=== PATIENT | male | born 1960 | race Caucasian/White ===

== ENCOUNTER → 2019-03-11 10:22 | Outpatient (BNVA) | payer SELFPAY | PROVIDERS: Family Provider Nurse Practitioner Family; PCP Nurse Practitioner Family; Visit Provider Nurse Practitioner Family | DX: I10 Essential (primary) hypertension (principal); E78.2 Mixed hyperlipidemia; M17.12 Unilateral primary osteoarthritis, left knee | CPT/HCPCS: 80053; 80061; 84443; 85025 ==

== ENCOUNTER → 2019-04-11 08:55 | Outpatient (BNVA) | payer SELFPAY | PROVIDERS: Family Provider Nurse Practitioner Family; PCP Nurse Practitioner Family; Visit Provider Nurse Practitioner Family | DX: I10 Essential (primary) hypertension (principal); E78.5 Hyperlipidemia, unspecified; M17.12 Unilateral primary osteoarthritis, left knee | CPT/HCPCS: 80053 ==

== ENCOUNTER → 2019-08-13 11:04 | Outpatient (BNVA) | payer SELFPAY | PROVIDERS: Family Provider Nurse Practitioner Family; PCP Nurse Practitioner Family; Visit Provider Nurse Practitioner | DX: M25.562 Pain in left knee (principal); M25.561 Pain in right knee; M22.42 Chondromalacia patellae, left knee; M76.891 Other specified enthesopathies of right lower limb, excluding foot | CPT/HCPCS: 73562 ==

== ENCOUNTER → 2019-10-20 14:34 | Outpatient (BNVA) | payer OTHER, SELFPAY | PROVIDERS: Family Provider Nurse Practitioner Family; PCP Nurse Practitioner Family; Visit Provider Nurse Practitioner Family | DX: Z11.59 Encounter for screening for other viral diseases (principal); J98.8 Other specified respiratory disorders | CPT/HCPCS: 87635 ==

== ENCOUNTER 2019-10-21 18:13 | Inpatient (IN) | payer OTHER, SELFPAY ==
[2019-10-21 18:25] VITALS: BP 193/113; PULSE 108; RESP 20; TEMP 38.8; O2SAT 85; BMI 33.7
--- NOTE | 2019-10-21 18:36 | XRR_ITS ---
PROCEDURE INFORMATION: Exam: XR Chest, 1 View Exam date and time: 10/21/2019 6:53 PM Age: 59 years old Clinical indication: Cough and fever; Patient HX: Covid precautions TECHNIQUE: Imaging protocol: XR of the chest Views: 1 view. COMPARISON: No relevant prior studies available. FINDINGS: Lungs: Band-like opacities present in both lung bases for which atelectasis and/or scarring is favored. However, CT CHEST would be more sensitive in detecting mild or early ground-glass opacities that can be seen with COVID-19 pneumonia. There is bilateral central bronchial wall thickening and haziness compatible with inflammation or edema. Pleural space: No pleural effusion or pneumothorax. Heart/Mediastinum: The heart is not felt to be enlarged. The mediastinal contours are normal. Diaphragm: The left hemidiaphragm is elevated. Bones/joints: No acute osseous abnormality. XR/XR chest 1V portable [id number] IMPRESSION: 1. Favor bibasilar atelectasis and/or scarring. 2. Bilateral central bronchial inflammation/edema. 3. Given the concern for COVID-19 pneumonia, consider CT CHEST.
--- NOTE | 2019-10-21 18:36 | ECG_ITS ---
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 Measurements Intervals [place] Rate: 95 P: 45 MT: 138 QRS: 51 QRSD: 86 T: 29 QT: 338 QTc: 426 Interpretive Statements SINUS RHYTHM POSSIBLE LEFT ATRIAL ENLARGEMENT [-0.1mV P WAVE IN V1/V2] NONSPECIFIC T-WAVE ABNORMALITY No previous ECG available for comparison Electronically Signed On 10-22-2019 9:52:19 CDT by Carlitos Navarrete M.D. [id number]
--- NOTE | 2019-10-21 19:08 | ED_ITS ---
HPI - SOB/Dyspnea General: Chief Complaint: Shortness of Breath/Dyspnea Stated Complaint: covid symptoms Time Seen by Provider: 10/21/19 18:26 Source: patient Mode of arrival: ambulatory Limitations: no limitations History of Present Illness: HPI Narrative: 59-year-old male who states he has felt ill over the last 2 to 3 days. He states he had generalized weakness along with shortness of breath and a fever up to 102. Patient was seen at clinic yesterday and had COVID testing but does not have the results back yet. He states he had worsening shortness of breath. Patient's pulse ox in triage was 85% but currently in the room is 90% on room air. He denies any vomiting. He states he does have slight pain in his chest when he breathes. Associated symptoms: Reports fever(s); Deny abdominal pain, chest pain, nausea or vomiting Review of Systems Const: Reports: fever(s) Eyes: Denies: blurry vision or eye discomfort ENMT: Denies: throat pain or dental pain Card: Denies: chest pain Resp: Reports: dyspnea and non-productive cough GI: Denies: abdominal pain, nausea, vomiting or diarrhea : Denies: dysuria Musc: Denies: neck pain or back pain Skin/Breast: Denies: rash Neuro: Denies: headache(s) Psych: Denies: depression Paulo/Lymph: Denies: easy bruising All/Imm: Denies: urticaria PFSH ED PFSH: Medical History Accelerated hypertension CAD (coronary artery disease) Osteoarthritis of left knee Surgical History Stented coronary artery Family History Other CAD (coronary artery disease) Hypertension Parkinson's disease Social History Smoking and tobacco status: former smoker Second hand smoke exposure: No Smoking risk assessment/counseling performed?: No Alcohol intake: never Desire information about alcohol rehabilitation?: No Counseling given: No Desire information about substance/drug rehabilitation?: No Counseling given: No Adopted: No Caregiver/support person: No Lives independently: Yes Household members: spouse Housing: House Marital status: Number of children: 6 service: No Current occupational status: retired History of recent travel: No Current gender identity: Male Physical Exam Const: COMMON NORMALS: no acute distress and patient oriented x3 GENERAL APPEARANCE: ill appearing HENMT: COMMON NORMALS: normocephalic and atraumatic HEAD & SCALP: normocephalic and atraumatic Eye: COMMON NORMALS: Equal, round and reactive pupils present and EOMs intact bilaterally PUPIL: Yes Equal, round and reactive pupils present Neck/C-Spine: COMMON NORMALS: full ROM and supple Chest: COMMONS NORMALS: normal inspection of the chest and normal palpation of entire chest wall Resp: COMMON NORMALS: normal respiratory effort, No retractions and No use of accessory muscles AUSCULTATION: rales Cardio: COMMON NORMALS: regular rate, regular rhythm and No murmurs present (Cardio) RATE: regular rate RHYTHM: regular rhythm GI: COMMON NORMALS: Normal to inspection, nondistended, normoactive bowel sounds present, Soft to palpation, non-tender and no masses PALPATION: Yes Soft to palpation Extremity: COMMON NORMALS: normal to inspection and full ROM Neuro: COMMON NORMALS: patient oriented x3, moves all extremities and no focal motor deficits Psych: COMMON NORMALS: mental status grossly normal, Normal thought process present and cooperative THOUGHT PROCESS: Normal thought process present Skin: COMMON NORMALS: no rashes or lesions noted and no wounds GENERAL SKIN EXAM: no rashes or lesions noted Course Vital Signs: Vital signs: Vital Signs Temperature 102 F H 10/21/19 18:25 Pulse Rate 98 10/21/19 20:47 Respiratory Rate 18 10/21/19 20:47 Blood Pressure 178/91 10/21/19 20:47 Pulse Oximetry 94 10/21/19 20:47 MDM - SOB/Dyspnea MDM Narrative: Medical decision making narrative: 59-year-old the presents here with fever along with shortness of breath. Patient original oxygen here was 90% on room air and is currently 96% on 2 L. Patient's x-ray shows no signs of pneumonia. Spoke to hospitalist will admit to the VICU. Patient's in no extreme distress. Patient given Decadron here. I see no signs of bacterial pneumonia on his x-ray Lab Data: Labs: Lab Results 10/21/19 10/21/19 10/21/19 Range/Units 19:30 19:30 19:30 WBC 7.6 (4.0-10.0) 10^3/ uL RBC 5.61 H (4.1-5.3) 10^6/u L Hgb 17.4 H (11.7-16.6) g/dL Hct 52.2 H (42.0-52.0) % MCV 93.0 (80-94) fL MCH 31.0 (28.0-34.0) pg MCHC 33.3 (30.0-36.0) g/dL RDW 12.2 (12.1-15.1) % Plt Count 357 (130-400) 10^3/c mm MPV 9.9 (7.4-10.4) fL Neut % (Auto) 73.8 % Lymph % (Auto) 15.9 % Greenlee % (Auto) 9.7 % Eos % (Auto) 0.0 % Baso % (Auto) 0.3 % Neut # (Auto) 5.60 (1.8-7.7) 10^3/u L Lymph # (Auto) 1.2 (0.8-4.8) 10^3/u L Greenlee # (Auto) 0.7 (0.2-0.9) 10^3/u L Eos # (Auto) 0.0 (0.0-0.8) 10^3/u L Baso # (Auto) 0.0 (0.0-0.1) 10^3/u L Nucleated RBC % (a uto) 0 % Nucleated RBCs # 0.0 /100WBC Fibrinogen 597 H (174-498) mg/dL Sodium 141 (136-145) mmol/L Potassium 3.7 (3.5-5.1) mmol/L Chloride 97 L (98-107) mmol/L Carbon Dioxide 30 H (22-29) mmol/L Anion Gap 17.7 (5-19) BUN 18 (8-23) mg/dL Creatinine 1.1 (0.7-1.2) mg/dL GFR Calculation 68.3 L (90-130) mL/min Glucose 130 H (65-115) mg/dL Calculated Osmolal ity 290 (285-295) mOsm/k g Lactic Acid (0.5-2.2) mmol/L Calcium 9.6 (8.5-10.5) mg/dL Total Bilirubin 0.7 (0.15-1.2) mg/dL AST 37 (0-40) U/L ALT 29 (0-41) U/L Alkaline Phosphata se 51 (40-130) IU/L Total Protein 7.7 (6.6-8.7) g/dL Albumin 4.0 (3.5-5.2) g/dL Globulin 3.7 (1.3-4.6) g/dL Influenza Type A A g (Negative) Influenza Type B A g (Negative) SARS-CoV-2 Ag (Rap id) (Negative) 10/21/19 10/21/19 10/21/19 Range/Units 19:30 19:30 19:49 WBC (4.0-10.0) 10^3/ uL RBC (4.1-5.3) 10^6/u L Hgb (11.7-16.6) g/dL Hct (42.0-52.0) % MCV (80-94) fL MCH (28.0-34.0) pg MCHC (30.0-36.0) g/dL RDW (12.1-15.1) % Plt Count (130-400) 10^3/c mm MPV (7.4-10.4) fL Neut % (Auto) % Lymph % (Auto) % Greenlee % (Auto) % Eos % (Auto) % Baso % (Auto) % Neut # (Auto) (1.8-7.7) 10^3/u L Lymph # (Auto) (0.8-4.8) 10^3/u L Greenlee # (Auto) (0.2-0.9) 10^3/u L Eos # (Auto) (0.0-0.8) 10^3/u L Baso # (Auto) (0.0-0.1) 10^3/u L Nucleated RBC % (a uto) % Nucleated RBCs # /100WBC Fibrinogen (174-498) mg/dL Sodium (136-145) mmol/L Potassium (3.5-5.1) mmol/L Chloride (98-107) mmol/L Carbon Dioxide (22-29) mmol/L Anion Gap (5-19) BUN (8-23) mg/dL Creatinine (0.7-1.2) mg/dL GFR Calculation (90-130) mL/min Glucose (65-115) mg/dL Calculated Osmolal ity (285-295) mOsm/k g Lactic Acid 1.5 (0.5-2.2) mmol/L Calcium (8.5-10.5) mg/dL Total Bilirubin (0.15-1.2) mg/dL AST (0-40) U/L ALT (0-41) U/L Alkaline Phosphata se (40-130) IU/L Total Protein (6.6-8.7) g/dL Albumin (3.5-5.2) g/dL Globulin (1.3-4.6) g/dL Influenza Type A A g Negative (Negative) Influenza Type B A g Negative (Negative) SARS-CoV-2 Ag (Rap id) Positive H (Negative) Imaging Data^: CXR: Attestation: I personally reviewed and interpreted this imaging study as follows: My impression: no acute abnormality Discharge Plan Discharge Patient Disposition: Admitted As Inpatient Clinical Impression: COVID-19 Condition: Stable Referrals: Gregoria Schilling FNP-C [Primary Care Provider] - Coding Level of Care Code ED Wash Test Checker for Андрей Fwd Exam Comprehensive
[2019-10-21 19:41] VITALS: BP 171/93; PULSE 91; RESP 20; O2SAT 96
[2019-10-21] MEDS: dexamethasone 10 mg/mL INJ IVP (19:43)
[2019-10-21] MEDS: ibuprofen 600 mg Tablet PO (19:43)
[2019-10-21 19:45] LABS: Basophils % 0.3 %; Hematocrit 52.2 % (42.0-52.0); Hemoglobin 17.4 g/dL (11.7-16.6); Lymphocytes # 1.2 10^3/uL (0.8-4.8); Lymphocytes % 15.9 %; Mean Corpuscular HGB Conc 33.3 g/dL (30.0-36.0); Mean Platelet Volume 9.9 fL (7.4-10.4); Monocytes # 0.7 10^3/uL (0.2-0.9); Monocytes % 9.7 %; Neutrophils % 73.8 %; Nucleated Red Blood Cells % 0 %; Platelet Count 357 10^3/cmm (130-400); Red Blood Count 5.61 10^6/uL (4.1-5.3); Red Cell Distribution Width 12.2 % (12.1-15.1); White Blood Count 7.6 10^3/uL (4.0-10.0)
[2019-10-21 20:00] LABS: Alanine Aminotransferase 29 U/L (0-41); Alkaline Phosphatase 51 IU/L (40-130); Anion Gap 17.7 (5-19); Aspartate Amino Transferase 37 U/L (0-40); Blood Urea Nitrogen 18 mg/dL (8-23); Calcium 9.6 mg/dL (8.5-10.5); Carbon Dioxide 30 mmol/L (22-29); Chloride 97 mmol/L (98-107); Globulin 3.7 g/dL (1.3-4.6); Glomerular Filtration Rate 68.3 mL/min (90-130); Glucose 130 mg/dL (65-115); Osmolality Calculated 290 mOsm/kg (285-295); Potassium 3.7 mmol/L (3.5-5.1); SARS Covid-2 Antigen Positive (Negative); Sodium 141 mmol/L (136-145); Total Bilirubin 0.7 mg/dL (0.15-1.2); Total Protein 7.7 g/dL (6.6-8.7)
[2019-10-21 20:01] LABS: Lactic Sepsis W/Reflex 1.5 mmol/L (0.5-2.2)
[2019-10-21 20:06] LABS: Fibrinogen 597 mg/dL (174-498)
[2019-10-21 20:15] LABS: Influenza A by IFA Negative (Negative); Influenza B by IFA Negative (Negative)
[2019-10-21 20:47] VITALS: BP 178/91; PULSE 98; RESP 18; O2SAT 94
[2019-10-21 20:51] LABS: Troponin(5th) Baseline 20 ng/L (0-15)
[2019-10-21 22:53] LABS: C Reactive Protein 45.4 mg/L (0.0-4.9); Ferritin 948 ng/mL (30-400)
[2019-10-21 22:58] VITALS: BP 165/91; PULSE 87; RESP 16; O2SAT 96
[2019-10-21 23:35] VITALS: TEMP 36.6
[2019-10-22] VITALS (48 sets, daily range): BP systolic 102–178; BP diastolic 66–117; PULSE 55–107; RESP 18–37; TEMP 36.1–37.1; O2SAT 72–95
--- NOTE | 2019-10-22 01:05 | ECG_ITS ---
[facility] ED Test Date: 2019-10-22 Pat Name: Valentin Lawton Department: Room: ICU19 Gender: Male Assistant Clinical Director: : 1960 Requested By: Evelyn Lantigua Order Number: [id number] Juan Francisco MD: Lamar Cates M.D. Measurements Intervals [place] Rate: 58 P: 23 NH: 159 QRS: 7 QRSD: 104 T: 5 QT: 465 QTc: 459 Interpretive Statements SINUS BRADYCARDIA WITH OCCASIONAL VENTRICULAR PREMATURE COMPLEXES WITH OCCASIONAL SUPRAVENTRICULAR PREMATURE COMPLEXES LEFT VENTRICULAR HYPERTROPHY AND ST-T CHANGE Compared to ECG 10/21/2019 19:32:52 Ventricular premature complex(es) now present Left ventricular hypertrophy now present ST (T wave) deviation now present Sinus rhythm no longer present T-wave abnormality no longer present Electronically Signed On 10-24-2019 20:58:30 CDT by Lamar Cates M.D. [email or web address] [id number]
[2019-10-22 01:21] LABS: Troponin 5 2HR 16.95 ng/L (0-15)
[2019-10-22] MEDS: enoxaparin 40 mg/0.4 mL Syringe SUBCUT (01:38)
[2019-10-22 02:56] LABS: Hematocrit 51.2 % (42.0-52.0); Hemoglobin 16.8 g/dL (11.7-16.6); Lymphocytes # 0.8 10^3/uL (0.8-4.8); Lymphocytes % 13.7 %; Mean Corpuscular HGB Conc 32.8 g/dL (30.0-36.0); Mean Corpuscular Hemoglobin 30.7 pg (28.0-34.0); Mean Corpuscular Volume 93.4 fL (80-94); Mean Platelet Volume 9.7 fL (7.4-10.4); Monocytes # 0.3 10^3/uL (0.2-0.9); Monocytes % 5.3 %; Neutrophils % 80.6 %; Nucleated Red Blood Cells % 0 %; Platelet Count 365 10^3/cmm (130-400); Red Blood Count 5.48 10^6/uL (4.1-5.3); Red Cell Distribution Width 12.2 % (12.1-15.1); White Blood Count 5.7 10^3/uL (4.0-10.0)
[2019-10-22 03:12] LABS: Alanine Aminotransferase 29 U/L (0-41); Albumin Level 3.7 g/dL (3.5-5.2); Alkaline Phosphatase 47 IU/L (40-130); Anion Gap 13.8 (5-19); Aspartate Amino Transferase 33 U/L (0-40); Blood Urea Nitrogen 25 mg/dL (8-23); Calcium 9.6 mg/dL (8.5-10.5); Carbon Dioxide 30 mmol/L (22-29); Chloride 99 mmol/L (98-107); Globulin 3.5 g/dL (1.3-4.6); Glomerular Filtration Rate 51.7 mL/min (90-130); Glucose 161 mg/dL (65-115); Osmolality Calculated 288 mOsm/kg (285-295); Potassium 3.8 mmol/L (3.5-5.1); Sodium 139 mmol/L (136-145); Total Bilirubin 0.6 mg/dL (0.15-1.2); Total Protein 7.2 g/dL (6.6-8.7)
[2019-10-22 03:34] LABS: C Reactive Protein 48.9 mg/L (0.0-4.9)
--- NOTE | 2019-10-22 07:22 | ECG_ITS ---
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 Measurements Intervals [place] Rate: 82 P: 18 DC: 118 QRS: 12 QRSD: 94 T: 2 QT: 395 QTc: 464 Interpretive Statements SINUS RHYTHM WITH SHORT DC INTERVAL POSSIBLE LEFT VENTRICULAR HYPERTROPHY POSSIBLE ANTERIOR MYOCARDIAL INFARCTION, OF INDETERMINATE AGE Compared to ECG 10/22/2019 02:01:39 Short DC interval now present Myocardial infarct finding now present Sinus bradycardia no longer present Ventricular premature complex(es) no longer present ST (T wave) deviation no longer present Electronically Signed On 10-24-2019 20:47:57 CDT by Lamar Cates M.D. [id number]
--- NOTE | 2019-10-22 08:59 | PC.NURSE ---
patient attempted to void at 0730 and went into afib rvr rate of 202 seen. he converted once settled back in his cot. ekg done latent per order. bladder scanned and over 400 noted. order for kruse given and performed. tolerated well.
--- NOTE | 2019-10-22 09:08 | P.HP_ITS ---
Providers/Chief Complaint Admitting Physician: Munir Robins MD Primary Care Provider: YAZMIN Brooks-Mike Chief Complaint: covid symptoms History of Present Illness Valentin Lawton is a 59 year old male presents to [facility] with significant shortness of breath over the last 3 days. He denies chest pain per se but reports that could not take deep breath in. He has been having white phlegm productive cough. Reports that his also been somewhat similarly sick but less severe. He tested positive for COVID-19 and admitted for further monitoring and treatment. He denied diarrhea but does report some nonspecific generalized abdominal discomfort. While in VICU patient was trying to urinate when developed tachycardia with heart rate in 200s. This was short-lived and we were unable to capture on EKG prior to patient converting back to normal sinus rhythm. Reports that he felt heart palpitations during this episode. Reports that previously he had one episode of atrial fibrillation on time ago but was not treated with anticoagulation. Coronary he received 2 stents around year 2013 and since then has been chest pain-free even with activity. He retired 2 years ago but reports that he is still keeps himself active. He does not use oxygen at home. He smoked minimally up until 40 years ago. He reports that his both lower extremities were slightly swollen but not during my evaluation. Patient's bladder was scanned showed more than 400 mL of urine and Perez catheter was placed. Review of Systems Narrative: Except as mentioned. Const: Reports: fever(s); Denies: chills Eyes: Denies: change in vision ENMT: Denies: throat pain or change in hearing Card: Denies: chest pain or lightheadedness Resp: Reports: dyspnea and productive cough GI: Reports: abdominal pain; Denies: nausea, vomiting, dysphagia, diarrhea, constipation, hematochezia or melena Musc: Denies: joint pain or joint swelling Skin/Breast: Denies: rash or erythema Neuro: Denies: headache(s) or weakness in extremities Psych: Denies: depression or suicidal ideation Endo: Denies: excessive sweating Paulo/Lymph: Denies: easy bleeding or tender lymph nodes All/Imm: Denies: throat swelling Medications/Allergies Home Medications Medication Instructions Recorded Confirmed Last Taken Type Qunol Ultra CoQ10 See Rx Instructions .ROUTE .COMPLEX 03/10/19 10/21/19 10/20/19 History aspirin 81 mg tablet,delayed 81 mg PO DAILY tab 03/10/19 10/21/19 10/20/19 Hi story release cyanocobalamin (vitamin B-12) 250 250 mcg PO DAILY 03/10/19 10/21/19 10/20/19 History mcg tablet magnesium oxide See Rx Instructions .ROUTE .COMPLEX 04/11/19 10/21/19 10/20/19 History isosorbide mononitrate 30 mg 30 mg PO BID #60 tab 08/11/19 10/21/19 10/20/19 Rx tablet,extended release 24 hr clonidine HCl 0.1 mg tablet 0.1 mg PO BID PRN 30 Days #30 tab 09/23/19 10/21/19 Unknown Rx ezetimibe 10 mg tablet 10 mg PO DAILY 30 Days #30 tab 09/23/19 10/21/19 10/20/19 Rx furosemide 20 mg tablet 20 mg PO QAM 30 Days #30 tab 09/23/19 10/21/19 10/20/19 Rx lisinopril 40 mg tablet 40 mg PO DAILY 30 Days #30 tab 09/23/19 10/21/19 10/20/19 Rx nitroglycerin 0.4 mg sublingual 0.4 mg SUBLINGUAL ONCE PRN #1 pkg 09/23/19 10/21/19 Unknown Rx tablet doxycycline hyclate 100 mg tablet 100 mg PO BID 10 Days #20 tab 10/20/19 10/21/19 10/20/19 Rx Allergies Allergy/AdvReac Type Severity Reaction Status Date / Time amlodipine Allergy Intermediate rash Verified 10/21/19 19:57 acetaminophen [From Vicodin] Allergy Unknown behavior Verified 10/21/19 19:57 changes hydrocodone [From Vicodin] Allergy Unknown behavior Verified 10/21/19 19:57 changes Beef Containing Products Allergy Unknown Verified 10/21/19 19:57 Pork/Porcine Containing Allergy Unknown Verified 10/21/19 19:57 Products PFSH Acute PFSH: Medical History Accelerated hypertension CAD (coronary artery disease) Osteoarthritis of left knee Surgical History Stented coronary artery Family History (Updated 10/22/19 @ 09:15 by Greg Winters MD) Mother Cancer Liver Other CAD (coronary artery disease) Hypertension Parkinson's disease Social History Smoking and tobacco status: former smoker Second hand smoke exposure: No Smoking risk assessment/counseling performed?: No Alcohol intake: never Desire information about alcohol rehabilitation?: No Counseling given: No Desire information about substance/drug rehabilitation?: No Counseling given: No Adopted: No Caregiver/support person: No Lives independently: Yes Household members: spouse Housing: House Marital status: Number of children: 6 service: No Current occupational status: retired History of recent travel: No Current gender identity: Male Vitals/I&O/Wt Last Vital Signs Temp 97 F L 10/22/19 07:30 Pulse 84 10/22/19 09:00 Resp 26 H 10/22/19 09:00 BP 172/114 10/22/19 09:00 Pulse Ox 92 10/22/19 09:00 10/21/19 10/22/19 10/22/19 22:59 06:59 14:59 Intake Total 300 / 300 Balance 300 / 300 Weight last 48 hrs Weight 112.945 kg Physical Exam Const: COMMON NORMALS: no acute distress, patient oriented x3 and alert HENMT: COMMON NORMALS: normocephalic and atraumatic HEAD & SCALP: normocephalic and atraumatic Eye: COMMON NORMALS: EOMs intact bilaterally, conjunctivae normal and no scleral icterus CONJUNCTIVA: Yes conjunctivae normal Neck/C-Spine: COMMON NORMALS: no lymphadenopathy and no meningeal signs Lymph: LYMPHATIC: no lymphadenopathy noted Chest: COMMONS NORMALS: normal palpation of entire chest wall Resp: COMMON NORMALS: No use of accessory muscles OTHER: Bibasilar Rales up to mid zones Cardio: COMMON NORMALS: regular rate, regular rhythm and No murmurs present (Cardio) RATE: regular rate RHYTHM: regular rhythm OTHER: No lower extremity edema GI: COMMON NORMALS: Soft to palpation and non-tender PALPATION: Yes Soft to palpation RECTAL EXAM: Yes deferred : COMMON NORMALS: Yes no CVA tenderness BLADDER/KIDNEY EXAM: Yes no CVA tenderness Back/Pelvis: COMMON NORMALS: no CVA tenderness and thoracic and lumbar spine normal to inspection Extremity: COMMON NORMALS: normal to inspection and capillary refill normal Neuro: COMMON NORMALS: patient oriented x3 and no focal motor deficits SENSORIUM/ORIENTATION: Yes alert MENINGEAL SIGNS: Yes no meningeal signs Psych: COMMON NORMALS: mental status grossly normal, Normal thought process present and cooperative THOUGHT PROCESS: Normal thought process present Skin: COMMON NORMALS: no rashes or lesions noted GENERAL SKIN EXAM: no rashes or lesions noted Urinary Catheter Management^: Perez: Cath Placed During This Visit: yes Urinary Catheter Date of Insertion: 10/22/19 Urinary Catheter Time of Insertion: 08: Data : 10/22/19 02:15 10/22/19 02:15 Micro: Microbiology 10/21/19 19:35 Blood Culture - Preliminary Blood SPECIMEN COLLECTED 10/21/19 19:30 Blood Culture - Preliminary Blood SPECIMEN COLLECTED A&P Assessment and plan (1) Acute respiratory failure with hypoxia: Status: Acute (2) COVID-19: Status: Acute (3) Accelerated hypertension: Status: Chronic (4) Urinary retention: Status: Acute (5) Tachyarrhythmia: Status: Acute (6) Community acquired pneumonia: Status: Acute (7) Dehydration: Status: Acute Additional A&P Information PLAN: IV hydration with LR with close monitoring Start patient on Levaquin and continue remdesivir and Decadron. Obtain sputum for Gram stain and culture. Continue with oxygen therapy. Discussed with patient risks and benefits of anticoagulation and will start patient on Eliquis empirically. Start patient on alfuzosin and hopefully we can try removing Perez catheter in a day or 2 Protonix for GI protection. Continue telemetry monitoring. Attestations Medical Necessity Statement*: Patient was hypoxic respiratory failure due to pneumonia requires close ICU monitoring and treatment. I expect patient will require more than 2 midnights. Critical Care Time: Critical Care Time (min): 45 Coding Level of Care Code Acute Steel Chipper for Андрей Franco Diagnoses Acute respiratory failure with hypoxia J96.01 COVID-19 U07.1 Accelerated hypertension I10 Urinary retention R33.9 Tachyarrhythmia R00.0 Community acquired pneumonia J18.9 Dehydration E86.0
[2019-10-22 09:20] LABS: Urine Appearance SL Hazy (CLEAR); Urine Color Orange (Yellow)
[2019-10-22 09:21] LABS: Add Urine Culture? No; Add Urine Microscopic? YES; Bacteria Urine 2+; Bilirubin Urine 1+ (NEGATIVE); Blood Urine Neg (Negative); Glucose Urine UA Norm (Normal); Hyaline Casts Urine 0-4; Ketones Urine Negative (Negative); Leukocyte Esterase Urine Negative (Negative); Mucus Urine 1+; Nitrate Urine Negative (Negative); Protein Urine 3+ (Negative); Squamous Epithelial Cell Urine 0-4 (0-5); Urobilinogen Urine 1 mg/dL (Negative); WBC Urine 0-4 /hpf (0-5)
[2019-10-22] MEDS: lisinopril 20 mg Tablet 40 MG PO (09:46)
[2019-10-22] MEDS: isosorbide mononitrate ER 30 mg Tablet PO ×2 (09:46→16:44)
[2019-10-22] MEDS: aspirin 81 mg EC Tablet PO (09:46)
[2019-10-22 11:18] LABS: Glucose Point of Care 157 mg/dL (70-110)
[2019-10-22] MEDS: dexamethasone 10 mg/mL INJ 6 MG IV (11:43)
[2019-10-22] MEDS: levofloxacin-dextrose 5 % 750 MG/150 ML PREMIX 100 MG IV (11:45)
[2019-10-22] MEDS: lactated ringers 1,000 ML 50 ML IV (11:45)
[2019-10-22] MEDS: alfuzosin 10 mg ER Tablet PO (11:47)
[2019-10-22] MEDS: pantoprazole DR 40 mg Tablet PO (11:48)
--- NOTE | 2019-10-22 13:50 | CTR_ITS ---
PROCEDURE INFORMATION: Exam: CT Head Without Contrast Exam date and time: 10/22/2019 3:14 PM Age: 59 years old Clinical indication: Condition or disease; Convulsions or seizures; Additional info: Seizure, anticoagulated TECHNIQUE: Imaging protocol: Computed tomography of the head without contrast. Radiation optimization: All CT scans at this facility use at least one of these dose optimization techniques: automated exposure control; mA and/or kV adjustment per patient size (includes targeted exams where dose is matched to clinical indication); or iterative reconstruction. COMPARISON: No relevant prior studies available. RADIATION DOSE METRICS: Total DLP (mGy-cm): 867.45 FINDINGS: Brain: Normal. No hemorrhage. Unremarkable white matter. No mass effect. Ventricles: Normal. No ventriculomegaly. Bones/joints: Unremarkable. No acute fracture. Sinuses: Visualized sinuses are unremarkable. No fluid levels. Mastoid air cells: Visualized mastoid air cells are well aerated. Soft tissues: Unremarkable. CT/CT head wo con* [id number] IMPRESSION: No acute intracranial abnormality. Radiation Dose CTDIVOL = (mGy): DLP = 867.45 (mGy-cm)
[2019-10-22] MEDS: LORazepam 2 mg/mL INJ 1 mL IVP (15:02)
[2019-10-22 15:47] LABS: Glucose Point of Care 141 mg/dL (70-110)
--- NOTE | 2019-10-22 18:13 | PC.NURSE ---
0730 patient had afib rvr and converted on his own. the symptoms were set off while attempting to void at the side of the bed. post conversion ekg done. kruse placed, ua sent. 1100 patient assisted to chair per tech. 1245 patient slumped a bit in his chair, seemed weaker but orientated. we attempted to bring a bed in to help his aching bottom and back and noted tonic clonic seizure. his arms straighten out at his sides, his eyes rolled up , he was sweating, and lost track of where he was for about a min after the 10 sec long episode, this happened 3x in my presence. ativan and keppra ordered and given within 30 min. at the time of his seizure he was in the chair, we pulled it out in the faria to get him into the bed. he was able to stand with assist a few minutes after the last episode and was instantly more comfortable
[2019-10-22 18:30] LABS: NT Pro B Type Natriuretic Pept 268 pg/mL (0-125)
--- NOTE | 2019-10-22 18:34 | PC.NURSE ---
patients updated at 0900 about the afib , then she called around 4 and was told about the ct scan due to the siezures, she is very upset that no doctor has called her. she was advised to send the patients phone to him so they could talk. this was done. i spoke to her again about his condition and then her daughter called wanting to talk to the doctor or mail carriers supervisor about her fathers condition. dr mcfadden was told .
--- NOTE | 2019-10-22 18:41 | CTR_ITS ---
PROCEDURE INFORMATION: Exam: CT Chest Without Contrast Exam date and time: 10/22/2019 7:55 PM Age: 59 years old Clinical indication: Shortness of breath; Prior surgery; Surgery type: Stents; Additional info: Covid/chf/decreased resp TECHNIQUE: Imaging protocol: Computed tomography of the chest without contrast. Radiation optimization: All CT scans at this facility use at least one of these dose optimization techniques: automated exposure control; mA and/or kV adjustment per patient size (includes targeted exams where dose is matched to clinical indication); or iterative reconstruction. COMPARISON: CR XR chest 1V portable [id number] 10/21/2019 6:41 PM RADIATION DOSE METRICS: Total DLP (mGy-cm): 1094.15 FINDINGS: Lungs: There is moderate severity subpleural and lower lung predominant patchy ground-glass and reticular opacity. Pleural space: There is no pleural effusion or pneumothorax. Heart: Heart size is normal. There is no pericardial effusion. Aorta: There is mild aortic atherosclerotic disease. There is no aortic aneurysm. Lymph nodes: There is no mediastinal or hilar lymphadenopathy. Gallbladder and bile ducts: There is high attenuation material within the gallbladder lumen consistent with sludge. Kidneys and ureters: There is a nonobstructive stone in the left kidney. Bones/joints: Bones are unremarkable. Soft tissues: The extrathoracic soft tissues are unremarkable. CT/CT chest wo con [id number] IMPRESSION: Moderate severity bilateral lung disease. Commonly reported imaging features of COVID-19 pneumonia are present. Other processes such as influenza pneumonia and organizing pneumonia (as can be seen with drug toxicity and connective tissue disease), can produce a similar imaging pattern. Radiation Dose CTDIVOL = (mGy): DLP = 1094.15 (mGy-cm)
[2019-10-22] MEDS: FUROsemide 10 mg/mL SDV 4mL 40 MG IVP (19:47)
[2019-10-22] MEDS: fondaparinux 2.5 mg/0.5 mL Syringe SUBCUT (19:47)
[2019-10-22 22:02] LABS: Glucose Point of Care 143 mg/dL (70-110)
[2019-10-23] VITALS (50 sets, daily range): BP systolic 99–160; BP diastolic 54–96; PULSE 65–101; RESP 1–33; TEMP 36.3–37.2; O2SAT 88–96
--- NOTE | 2019-10-23 06:00 | XR_ITS ---
WS: [id number] Portable AP upright chest, 10/23/2019 Clinical Data: COVID19, hypoxia Comparison: Portable chest, 10/21/2019. Findings: No nodules, masses or effusions are seen. The heart is normal. The pulmonary vascularity is not increased. No pneumonia or pneumothorax is seen. The left diaphragm is elevated. There is mild r ight midlung atelectasis. There is basilar atelectasis over the surface of the left diaphragm. Monito r leads are on the chest wall. XR/XR chest 1V portable [id number] Impression: 1. Poor inspiratory effort. 2. Bilateral atelectatic changes in the right midlung and left lung base.
[2019-10-23 06:10] LABS: Basophils % 0.1 %; Hematocrit 46.1 % (42.0-52.0); Hemoglobin 15.3 g/dL (11.7-16.6); Lymphocytes % 9.8 %; Mean Corpuscular HGB Conc 33.2 g/dL (30.0-36.0); Mean Corpuscular Hemoglobin 31.6 pg (28.0-34.0); Mean Corpuscular Volume 95.2 fL (80-94); Mean Platelet Volume 9.8 fL (7.4-10.4); Monocytes # 0.8 10^3/uL (0.2-0.9); Monocytes % 8.5 %; Neutrophils # 7.96 10^3/uL (1.8-7.7); Neutrophils % 80.9 %; Nucleated Red Blood Cells % 0 %; Platelet Count 417 10^3/cmm (130-400); Red Blood Count 4.84 10^6/uL (4.1-5.3); Red Cell Distribution Width 12.4 % (12.1-15.1); White Blood Count 9.9 10^3/uL (4.0-10.0)
[2019-10-23 06:22] LABS: Fibrinogen 542 mg/dL (174-498)
[2019-10-23 06:25] LABS: D Dimer 0.57 ug/mIFEU (0-0.59)
[2019-10-23 06:32] LABS: Alanine Aminotransferase 24 U/L (0-41); Albumin Level 3.2 g/dL (3.5-5.2); Alkaline Phosphatase 40 IU/L (40-130); Anion Gap 16.5 (5-19); Aspartate Amino Transferase 20 U/L (0-40); Blood Urea Nitrogen 38 mg/dL (8-23); Calcium 8.9 mg/dL (8.5-10.5); Carbon Dioxide 28 mmol/L (22-29); Chloride 102 mmol/L (98-107); Globulin 3.5 g/dL (1.3-4.6); Glomerular Filtration Rate 68.3 mL/min (90-130); Glucose 126 mg/dL (65-115); Osmolality Calculated 295 mOsm/kg (285-295); Potassium 3.5 mmol/L (3.5-5.1); Sodium 143 mmol/L (136-145); Total Bilirubin 0.5 mg/dL (0.15-1.2); Total Protein 6.7 g/dL (6.6-8.7)
[2019-10-23 06:38] LABS: Ferritin 852 ng/mL (30-400); NT Pro B Type Natriuretic Pept 148 pg/mL (0-125)
[2019-10-23 07:15] LABS: Prolactin 11.51 ng/mL (4.0-15.2)
[2019-10-23 08:01] LABS: Glucose Point of Care 118 mg/dL (70-110)
[2019-10-23] MEDS: dexamethasone 10 mg/mL INJ 6 MG IV (10:10)
[2019-10-23] MEDS: aspirin 81 mg EC Tablet PO (10:11)
[2019-10-23] MEDS: lisinopril 20 mg Tablet 40 MG PO (10:11)
[2019-10-23] MEDS: isosorbide mononitrate ER 30 mg Tablet PO ×2 (10:12→16:49)
[2019-10-23] MEDS: pantoprazole DR 40 mg Tablet PO (10:13)
[2019-10-23] MEDS: alfuzosin 10 mg ER Tablet PO (10:13)
[2019-10-23] MEDS: levofloxacin-dextrose 5 % 750 MG/150 ML PREMIX 100 MG IV (11:00)
--- NOTE | 2019-10-23 11:42 | PM.PN ---
Subjective Subjective: Interval history: Patient reports feeling better this morning although does require 13 L of high nasal cannula flow to saturate in low 90s. He denies chest pain or abdominal pain. His vitals remained stable and patient remains afebrile. Head CT showed no evidence of intracranial bleed. He had no more episodes of seizure-like activity. Vitals/I&O/Wt Last Vital Signs Temp 97.4 F L 10/23/19 10:00 Pulse 75 10/23/19 10:30 Resp 21 H 10/23/19 08:30 BP 141/90 10/23/19 10:30 Pulse Ox 93 10/23/19 10:30 10/22/19 10/23/19 10/23/19 22:59 06:59 14:59 Intake Total 600 / 1400 100 / 1500 355 / 355 Output Total 150 / 650 800 / 1450 Balance 450 / 750 -700 / 50 355 / 355 Weight last 48 hrs Weight 112.945 kg Physical Exam Const: COMMON NORMALS: no acute distress and patient oriented x3 Resp: COMMON NORMALS: normal respiratory effort OTHER: Patient continues to have bibasilar Rales but overall appears to be improving. Cardio: COMMON NORMALS: regular rate, regular rhythm and S2 normal heart sound present RATE: regular rate RHYTHM: regular rhythm HEART SOUNDS: S2 normal heart sound present OTHER: No lower extremity edema GI: COMMON NORMALS: Normal to inspection, nondistended, normoactive bowel sounds present, Soft to palpation and non-tender PALPATION: Yes Soft to palpation Neuro: COMMON NORMALS: patient oriented x3 and no focal motor deficits Urinary Catheter Management^: Perez: Cath Placed During This Visit: yes Reason for Continuing Indwelling Catheter: Acute Urinary Retention or Obstruction Urinary Catheter Date of Insertion: 10/22/19 Urinary Catheter Time of Insertion: 08: Data : 10/23/19 04:40 10/23/19 04:40 Micro: Microbiology 10/21/19 19:30 Blood Culture - Preliminary Blood Gram positive cocci 10/21/19 19:35 Blood Culture - Preliminary Blood NEGATIVE TO DATE A&P Assessment and plan (1) Acute respiratory failure with hypoxia: Status: Acute (2) COVID-19: Status: Acute (3) Accelerated hypertension: Status: Chronic (4) Urinary retention: Status: Acute (5) Tachyarrhythmia: Status: Acute (6) Community acquired pneumonia: Status: Acute (7) Dehydration: Status: Acute Additional A&P Information PLAN: Continue current monitoring and treatment. Continue holding any IV hydration. Encouraged oral intake. Overall patient appears to be improving and I think his oxygen requirement will start gradually improving. 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
[2019-10-23 16:41] LABS: Glucose Point of Care 129 mg/dL (70-110)
[2019-10-23] MEDS: fondaparinux 2.5 mg/0.5 mL Syringe SUBCUT (20:53)
[2019-10-23 21:59] LABS: Glucose Point of Care 199 mg/dL (70-110)
[2019-10-24] VITALS (51 sets, daily range): BP systolic 97–161; BP diastolic 58–103; PULSE 54–203; RESP 18–31; TEMP 36.6–37.1; O2SAT 87–96
[2019-10-24 05:17] LABS: Hematocrit 45.1 % (42.0-52.0); Hemoglobin 14.8 g/dL (11.7-16.6); Lymphocytes # 0.8 10^3/uL (0.8-4.8); Lymphocytes % 11.8 %; Mean Corpuscular HGB Conc 32.8 g/dL (30.0-36.0); Mean Corpuscular Hemoglobin 31.5 pg (28.0-34.0); Mean Platelet Volume 9.6 fL (7.4-10.4); Monocytes # 0.7 10^3/uL (0.2-0.9); Monocytes % 10.4 %; Neutrophils # 5.49 10^3/uL (1.8-7.7); Neutrophils % 77.1 %; Nucleated Red Blood Cells % 0 %; Platelet Count 413 10^3/cmm (130-400); Red Cell Distribution Width 12.4 % (12.1-15.1); White Blood Count 7.1 10^3/uL (4.0-10.0)
[2019-10-24 05:45] LABS: Alanine Aminotransferase 26 U/L (0-41); Albumin Level 3.3 g/dL (3.5-5.2); Alkaline Phosphatase 39 IU/L (40-130); Anion Gap 12.7 (5-19); Aspartate Amino Transferase 20 U/L (0-40); Blood Urea Nitrogen 33 mg/dL (8-23); Calcium 8.8 mg/dL (8.5-10.5); Carbon Dioxide 31 mmol/L (22-29); Chloride 104 mmol/L (98-107); Glomerular Filtration Rate 76.2 mL/min (90-130); Glucose 117 mg/dL (65-115); Osmolality Calculated 296 mOsm/kg (285-295); Potassium 3.7 mmol/L (3.5-5.1); Sodium 144 mmol/L (136-145); Total Bilirubin 0.6 mg/dL (0.15-1.2); Total Protein 6.3 g/dL (6.6-8.7)
--- NOTE | 2019-10-24 08:18 | PM.PN ---
Subjective Subjective: Interval history: Patient reports feeling better this morning. He required 15 L yesterday and this morning is down to 14 with saturations in the low 90s. Patient reports that he is breathing easier but does have minimal pleuritic chest pain mostly on the right parasternal border. Reports that he can now take more deeper breaths. He has been having dry cough this morning. Reports that his appetite is getting better. He had no bowel movement yet but passing gas and denies any abdominal pain. Platelets slightly improved Vitals/I&O/Wt Last Vital Signs Temp 98.0 F 10/24/19 04:00 Pulse 55 L 10/24/19 06:00 Resp 21 H 10/24/19 06:00 BP 142/86 10/24/19 06:00 Pulse Ox 94 10/24/19 06:00 10/23/19 10/24/19 10/24/19 22:59 06:59 14:59 Intake Total 555 / 1260 Output Total 700 / 700 700 / 1400 Balance -145 / 560 -700 / -140 Physical Exam Const: COMMON NORMALS: no acute distress and patient oriented x3 Resp: COMMON NORMALS: normal respiratory effort OTHER: Bibasilar Rales appear further improving. Cardio: COMMON NORMALS: regular rate, regular rhythm and S2 normal heart sound present RATE: regular rate RHYTHM: regular rhythm HEART SOUNDS: S2 normal heart sound present OTHER: No lower extremity edema GI: COMMON NORMALS: Normal to inspection, nondistended, normoactive bowel sounds present, Soft to palpation and non-tender PALPATION: Yes Soft to palpation Neuro: COMMON NORMALS: patient oriented x3 and no focal motor deficits Urinary Catheter Management^: Perez: Cath Placed During This Visit: yes Reason for Continuing Indwelling Catheter: Acute Urinary Retention or Obstruction Urinary Catheter Date of Insertion: 10/22/19 Urinary Catheter Time of Insertion: 08:25 Data : 10/24/19 04:00 10/24/19 04:00 Micro: Microbiology 10/21/19 19:30 Blood Culture - Preliminary Blood Gram positive cocci A&P Assessment and plan (1) Acute respiratory failure with hypoxia: Status: Acute (2) COVID-19: Status: Acute (3) Accelerated hypertension: Status: Chronic (4) Urinary retention: Status: Acute (5) Tachyarrhythmia: Status: Acute (6) Community acquired pneumonia: Status: Acute (7) Dehydration: Status: Acute Additional A&P Information PLAN: Continue current monitoring and treatment. We will restart patient's home Lasix and antidepressant I think in day or 2 patients oxygen requirement will start improving. 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
[2019-10-24] MEDS: aspirin 81 mg EC Tablet PO (08:47)
[2019-10-24] MEDS: dexamethasone 10 mg/mL INJ 6 MG IV (08:47)
[2019-10-24] MEDS: alfuzosin 10 mg ER Tablet PO (08:47)
[2019-10-24] MEDS: pantoprazole DR 40 mg Tablet PO (08:48)
[2019-10-24] MEDS: isosorbide mononitrate ER 30 mg Tablet PO ×2 (08:48→16:30)
[2019-10-24] MEDS: lisinopril 20 mg Tablet 40 MG PO (08:48)
[2019-10-24] MEDS: sodium chloride 0.9% 500 ML 30 ML IV (08:54)
[2019-10-24] MEDS: potassium chloride ER 10 mEq Tablet 40 MEQ PO (08:55)
[2019-10-24] MEDS: FUROsemide 20 mg Tablet PO (08:55)
[2019-10-24] MEDS: ezetimibe 10 mg Tablet PO (08:55)
[2019-10-24] MEDS: levofloxacin-dextrose 5 % 750 MG/150 ML PREMIX 100 MG IV (08:56)
[2019-10-24] MEDS: acetaminophen 325 mg Tablet 650 MG PO ×2 (08:58→16:31)
--- NOTE | 2019-10-24 09:04 | PC.NURSE ---
PATIENT GIVEN ADVAIR AND COMBIVENT WITH MORNING MEDS, ORAL CARE PERFORMED AFTERWARDS.
[2019-10-24] MEDS: adenosine 3 mg/mL SDV 2mL 6 MG IVP (12:20)
--- NOTE | 2019-10-24 13:17 | PC.NURSE ---
approximately 1130 patient went into PAT and complained of small but continuous chest pain that worsened on deep breath. hr 206 , bp holding. confirmed with ekg and was given order to bolus adenosine quickly. med taken from crash tray that was available. pathent converted to a sinus lew and then quickly into afib rvr. cardizem bolus and drip were ordered and given around 30 min later no effect as yet has shown. patients sats have dipped to 86 during coughing jag but at rest are 92 to 94. rt and md aware. second bolus of cardizem for a total of 25 given and it has helped the rate go from 170 to 140 on average. patients was updated 2x during the issue.
--- NOTE | 2019-10-24 14:51 | CT_ITS ---
WS: [id number] CTA scan of the chest with IV contrast. Additional two-dimensional coronal and sagittal reconstructio n and MIP images was performed. 10/24/2019 Clinical Data: A. fib, hypoxia Comparison: CT chest, 10/22/2019. DLP: 589.[address] scans at [facility] use at least one of these dose optimization techniques: automat ed exposure control; mA and/or kV adjustment per patient size (includes targeted exams where dose is matched to clinical indication); or iterative reconstruction. Findings: The central pulmonary arteries and peripheral pulmonary arteries fill normally with no evidence of in termittent luminal filling defects. No pulmonary embolic disease is noted. No nodules, masses or effusions are seen. The patchy groundglass bilateral infiltrates remain the day e. The left diaphragm is elevated. There is minimal right lower lobe basilar atelectasis The heart si ze is normal with no pericardial effusion. The pulmonary arterial system and thoracic aorta demonstra te no abnormalities or dilatations. There is no axillary or significant mediastinal adenopathy. The t hyroid gland shows normal enhancement. The trachea bifurcates into the bronchi. The spleen shows fatty infiltration with hepatomegaly. The gallbladder probably has sludge within. Th e pancreas, spleen, adrenal glands and superior poles of the kidneys are not remarkable. Degenerative changes of the thoracic vertebral bodies is moderate. CT/CT angio chest PE protcl [id number] Impression: 1. Negative for pulmonary embolic disease. 2. No change in patchy groundglass bilateral infiltrates.
[2019-10-24] MEDS: iohexol 350 mg/mL 100 mL Btl IV (15:11)
[2019-10-24 16:20] LABS: Glucose Point of Care 179 mg/dL (70-110)
[2019-10-24] MEDS: fondaparinux 2.5 mg/0.5 mL Syringe SUBCUT (19:41)
[2019-10-24 20:48] LABS: Glucose Point of Care 209 mg/dL (70-110)
[2019-10-25] VITALS (62 sets, daily range): BP systolic 103–162; BP diastolic 63–102; PULSE 47–148; RESP 16–33; TEMP 36.6–37; O2SAT 85–93
--- NOTE | 2019-10-25 01:42 | PC.NURSE ---
0130 Started 2nd bag of Diltiazem gtt at 10mg/hr but unable to document in pt's MAR
[2019-10-25 04:53] LABS: Hematocrit 46.9 % (42.0-52.0); Hemoglobin 15.5 g/dL (11.7-16.6); Lymphocytes # 0.8 10^3/uL (0.8-4.8); Lymphocytes % 10.5 %; Mean Corpuscular Hemoglobin 31.3 pg (28.0-34.0); Mean Corpuscular Volume 94.7 fL (80-94); Mean Platelet Volume 9.6 fL (7.4-10.4); Monocytes # 0.7 10^3/uL (0.2-0.9); Monocytes % 9.8 %; Neutrophils # 5.85 10^3/uL (1.8-7.7); Neutrophils % 78.6 %; Nucleated Red Blood Cells % 0 %; Platelet Count 431 10^3/cmm (130-400); Red Blood Count 4.95 10^6/uL (4.1-5.3); White Blood Count 7.4 10^3/uL (4.0-10.0)
[2019-10-25 05:10] LABS: Alanine Aminotransferase 51 U/L (0-41); Albumin Level 3.2 g/dL (3.5-5.2); Alkaline Phosphatase 41 IU/L (40-130); Anion Gap 13.6 (5-19); Aspartate Amino Transferase 36 U/L (0-40); Blood Urea Nitrogen 25 mg/dL (8-23); Calcium 8.6 mg/dL (8.5-10.5); Carbon Dioxide 29 mmol/L (22-29); Chloride 104 mmol/L (98-107); Glomerular Filtration Rate 98.6 mL/min (90-130); Glucose 132 mg/dL (65-115); Osmolality Calculated 295 mOsm/kg (285-295); Potassium 3.6 mmol/L (3.5-5.1); Sodium 143 mmol/L (136-145); Total Bilirubin 0.7 mg/dL (0.15-1.2); Total Protein 6.2 g/dL (6.6-8.7)
[2019-10-25 05:13] LABS: Fibrinogen 470 mg/dL (174-498)
[2019-10-25 05:14] LABS: C Reactive Protein 17.5 mg/L (0.0-4.9); Magnesium 2.2 mg/dL (1.7-2.3)
[2019-10-25 05:16] LABS: D Dimer 0.38 ug/mIFEU (0-0.59)
[2019-10-25] MEDS: FUROsemide 20 mg Tablet PO (05:22)
[2019-10-25 08:15] LABS: Glucose Point of Care 124 mg/dL (70-110)
--- NOTE | 2019-10-25 09:27 | PC.NURSE ---
Advair administered at 0830. Nurse thought RT was to document. Documented as manual entry.
[2019-10-25] MEDS: alfuzosin 10 mg ER Tablet PO (09:34)
[2019-10-25] MEDS: aspirin 81 mg EC Tablet PO (09:35)
[2019-10-25] MEDS: ezetimibe 10 mg Tablet PO (09:42)
[2019-10-25] MEDS: lisinopril 20 mg Tablet 40 MG PO (09:43)
[2019-10-25] MEDS: isosorbide mononitrate ER 30 mg Tablet PO ×2 (09:43→18:21)
[2019-10-25] MEDS: pantoprazole DR 40 mg Tablet PO (09:44)
[2019-10-25] MEDS: potassium chloride ER 10 mEq Tablet 40 MEQ PO (09:45)
[2019-10-25] MEDS: levofloxacin-dextrose 5 % 750 MG/150 ML PREMIX 100 MG IV (09:49)
[2019-10-25] MEDS: dexamethasone 10 mg/mL INJ 6 MG IV (09:55)
--- NOTE | 2019-10-25 11:27 | P.PN_ITS ---
Subjective Subjective: Interval history: Patient reports that he is doing better compared to yesterday. Denies any heart palpitations. Denies chest pain. Breathing is at baseline. Still requires 15 L to saturate in the low 90s. He is still in atrial fibrillation with rapid ventricular response in 110s. C-reactive protein is trending down. CT scan of the chest yesterday showed no evidence of PE. He urinated approximately 300 mL since last shift. Vitals/I&O/Wt Last Vital Signs Temp 98 F 10/25/19 04:00 Pulse 113 H 10/25/19 10:45 Resp 27 H 10/25/19 10:45 BP 115/93 10/25/19 10:30 Pulse Ox 91 10/25/19 10:00 10/24/19 10/25/19 10/25/19 22:59 06:59 14:59 Intake Total 610.000 / 1635.000 205 / 1840.000 120 / 120 Output Total 1200 / 1200 950 / 2150 Balance -590.000 / 435.000 -745 / -310.000 120 / 120 Physical Exam Const: COMMON NORMALS: no acute distress and patient oriented x3 Resp: COMMON NORMALS: normal respiratory effort OTHER: Bibasilar Rales and some mid zones Cardio: RHYTHM: abnormal rhythm irregularly irregular OTHER: No lower e xtremity edema GI: COMMON NORMALS: Normal to inspection, nondistended, normoactive bowel sounds present, Soft to palpation and non-tender PALPATION: Yes Soft to palpation Neuro: COMMON NORMALS: patient oriented x3 and no focal motor deficits Urinary Catheter Management^: Perez: Cath Placed During This Visit: yes Reason for Continuing Indwelling Catheter: Acute Urinary Retention or Obstruction Urinary Catheter Date of Insertion: 10/22/19 Urinary Catheter Time of Insertion: 08:25 Data : 10/25/19 04:20 10/25/19 04:20 A&P Assessment and plan (1) Acute respiratory failure with hypoxia: Status: Acute (2) COVID-19: Status: Acute (3) Accelerated hypertension: Status: Chronic (4) Urinary retention: Status: Acute (5) Tachyarrhythmia: Status: Acute (6) Community acquired pneumonia: Status: Acute (7) Dehydration: Status: Acute Additional A&P Information PLAN: Will add oral diltiazem and gradually wean off Cardizem drip. Decrease Keppra to 250 mg twice daily and change to oral and check level rimma rrow morning. Awaiting echocardiogram report. We will switch fondaparinux to Eliquis for A. fib related stroke prevention. Discussed with patient and GOKUL Cannon and we will try to limit fluids patient is getting. Will give him 1 additional dose of Lasix now to keep his lung as dry as possible. Message left to patient's phone and will try calling again later to update. Attestations Medical Necessity Statement*: And with significant COVID-19 related hypoxic respiratory failure requires close ICU monitoring and treatment. 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
--- NOTE | 2019-10-25 11:48 | USCV_ITS ---
Valentin Lawton Age: 59 Gender: M : 1960 Exam Date: 10/25/2019 07:34 Ordering Phys: Greg Winters MD Technologist: Miko Jorge [place] [facility] [place]: AFIB TACH BP: 153 / 87 HR: 78 Rhythm: Sinus Technical Quality: Fair MEASUREMENTS (Male / Female) Normal Values 2D ECHO LV Diastolic Diameter PLAX 2.9 cm 4.2 - 5.9 / 3.9 - 5.3 cm LV Systolic Diameter PLAX 1.9 cm IVS Diastolic Thickness 0.7 cm 0.6 - 1.0 / 0.6 - 0.9 cm IVS Systolic Thickness 1.2 cm LVPW Diastolic Thickness 0.8 cm 0.6 - 1.0 / 0.6 - 0.9 cm LVPW Systolic Thickness 1.0 cm LVOT Diameter 2.0 cm LV Ejection Fraction 2D Teich 65.9 % LV Ejection Fraction MOD 2C 70.5 % LV Ejection Fraction 2C AL 71.0 % LA Diameter 5.3 cm LA Width 3.6 cm LA Height 5.2 cm RA Width 3.5 cm Aorta at Sinotubular Diameter 1.2 cm M-MODE LV Diastolic Diameter MM 4.6 cm 4.2 - 5.9 / 3.9 - 5.3 cm LV Systolic Diameter MM 2.9 cm LV Ejection Fraction MM Teich 67.5 % IVS Diastolic Thickness MM 0.9 cm 0.6 - 1.0 / 0.6 - 0.9 cm IVS Systolic Thickness MM 1.5 cm LVPW Diastolic Thickness MM 1.3 cm 0.6 - 1.0 / 0.6 - 0.9 cm LVPW Systolic Thickness MM 1.7 cm RV Diastolic Diameter MM 1.1 cm Aortic Annulus Diameter 3.9 cm LA Ao Ratio MM 1.4 MV E Point Septal Separation 1.3 cm DOPPLER AV Peak Velocity 140.0 cm/s LVOT Peak Velocity 84.0 cm/s AV Area Cont Eq vti 2.2 cm squared AV Area Cont Eq pk 2.0 cm squared MV Area PHT 5.0 cm squared Mitral E to A Ratio 2.2 MV E' Velocity 13.0 cm/s Mitral E to MV E' Ratio 6.9 Mitral E to LV E' Lateral Ratio 5.7 Mitral E to LV E' Septal Ratio 8.6 TR Peak Velocity 155.0 cm/s TR Peak Gradient 9.6 mmHg TV Peak E Velocity 90.0 cm/s Right Atrial Pressure 3.0 mmHg Pulmonary Artery Systolic Pressu 12.6 mmHg FINDINGS Left Ventricle Possibly normal LV size ejection fraction. Segmental wall motion analysis difficult because of poor ultrasonic window and the arrhythmia. No gross abnormalities noted Right Ventricle Possibly of normal size ejection fraction Right Atrium Could not be well visualized Left Atrium Mildly increased left atrial size. Mitral Valve Mildly thickened mitral valve. Aortic Valve No gross abnormalities Tricuspid Valve Tricuspid valve not well visualized. Pulmonic Valve Pulmonic valve not well visualized. Pericardium No pericardial effusion. Aorta Normal aortic annulus size. CONCLUSIONS Possibly normal LV size ejection fraction of around 60% Segmental wall motion analysis difficult because of poor ultrasonic window and the arrhythmia. No gross wall motion abnormalities noted. Minimally thickened mitral valve. Mildly increased left atrial size. There is no pericardial effusion. There are no intracardiac masses. Dr Ángel Levine MD FACC (Electronically Signed) Final Date: 25 October 2019 14:30 S
[2019-10-25 12:10] LABS: Glucose Point of Care 136 mg/dL (70-110)
[2019-10-25] MEDS: dilTIAZem 60 mg Tablet PO ×3 (12:21→22:48)
[2019-10-25] MEDS: FUROsemide 10 mg/mL SDV 4mL 40 MG IVP (12:21)
[2019-10-25 17:17] LABS: Glucose Point of Care 203 mg/dL (70-110)
[2019-10-25] MEDS: apixaban 5 mg Tablet PO (18:21)
[2019-10-25] MEDS: levETIRAcetam 500 mg Tablet 250 MG PO (18:21)
[2019-10-25 20:20] LABS: Glucose Point of Care 162 mg/dL (70-110)
[2019-10-26] VITALS (24 sets, daily range): BP systolic 110–173; BP diastolic 61–95; PULSE 53–84; RESP 0–35; TEMP 36.3–36.9; O2SAT 86–96
[2019-10-26] MEDS: FUROsemide 20 mg Tablet PO (05:15)
[2019-10-26] MEDS: dilTIAZem 60 mg Tablet PO ×4 (05:15→23:13)
[2019-10-26 07:36] LABS: Glucose Point of Care 155 mg/dL (70-110)
[2019-10-26 08:36] LABS: Basophils % 0.2 %; Hematocrit 47.8 % (42.0-52.0); Hemoglobin 15.8 g/dL (11.7-16.6); Lymphocytes # 0.9 10^3/uL (0.8-4.8); Lymphocytes % 11.4 %; Mean Corpuscular HGB Conc 33.1 g/dL (30.0-36.0); Mean Corpuscular Hemoglobin 30.6 pg (28.0-34.0); Mean Corpuscular Volume 92.6 fL (80-94); Mean Platelet Volume 9.5 fL (7.4-10.4); Monocytes # 0.6 10^3/uL (0.2-0.9); Monocytes % 7.9 %; Neutrophils # 6.38 10^3/uL (1.8-7.7); Neutrophils % 78.4 %; Nucleated Red Blood Cells % 0 %; Platelet Count 540 10^3/cmm (130-400); Red Blood Count 5.16 10^6/uL (4.1-5.3); Red Cell Distribution Width 12.1 % (12.1-15.1); White Blood Count 8.1 10^3/uL (4.0-10.0)
[2019-10-26 08:41] LABS: Alanine Aminotransferase 78 U/L (0-41); Albumin Level 3.4 g/dL (3.5-5.2); Alkaline Phosphatase 46 IU/L (40-130); Anion Gap 14.5 (5-19); Aspartate Amino Transferase 44 U/L (0-40); Blood Urea Nitrogen 25 mg/dL (8-23); Calcium 9.3 mg/dL (8.5-10.5); Carbon Dioxide 27 mmol/L (22-29); Chloride 103 mmol/L (98-107); Globulin 3.2 g/dL (1.3-4.6); Glomerular Filtration Rate 68.3 mL/min (90-130); Glucose 184 mg/dL (65-115); Osmolality Calculated 294 mOsm/kg (285-295); Potassium 3.5 mmol/L (3.5-5.1); Sodium 141 mmol/L (136-145); Total Bilirubin 0.8 mg/dL (0.15-1.2); Total Protein 6.6 g/dL (6.6-8.7)
--- NOTE | 2019-10-26 08:54 | PC.NURSE ---
Pt sitting in bed working with his IS. States he is feeling much better today and that his breathing is much better. on high flow 02 15L. sats 92% while sitting in bed. Does decrease when talking or movement.
[2019-10-26] MEDS: potassium chloride ER 10 mEq Tablet 40 MEQ PO ×2 (08:58→17:23)
[2019-10-26] MEDS: lisinopril 20 mg Tablet 40 MG PO (08:58)
[2019-10-26] MEDS: aspirin 81 mg EC Tablet PO (08:59)
[2019-10-26] MEDS: pantoprazole DR 40 mg Tablet PO (08:59)
[2019-10-26] MEDS: ezetimibe 10 mg Tablet PO (09:00)
[2019-10-26] MEDS: levETIRAcetam 500 mg Tablet 250 MG PO ×2 (09:00→17:23)
[2019-10-26] MEDS: isosorbide mononitrate ER 30 mg Tablet PO ×2 (09:00→17:23)
[2019-10-26] MEDS: dexamethasone 10 mg/mL INJ 6 MG IV (09:01)
[2019-10-26] MEDS: alfuzosin 10 mg ER Tablet PO (09:01)
[2019-10-26] MEDS: apixaban 5 mg Tablet PO ×2 (09:02→17:23)
[2019-10-26] MEDS: levofloxacin-dextrose 5 % 750 MG/150 ML PREMIX 100 MG IV (09:37)
--- NOTE | 2019-10-26 10:03 | PM.PN ---
Subjective Subjective: Interval history: Patient reports feeling better this morning. He converted back to normal sinus rhythm around 2 AM and Cardizem drip was discontinued. He continues to require 15 L high flow oxygen to saturate 93% this morning. His lung exam significantly improved and patient has only minimal bibasilar rales but otherwise clear. Patient's family mentions several times if I think patient should be transferred to [facility]. I have discussed with patient that if he wants I can arrange transfer to [facility] but he wants to stay here as he is getting better. This morning patient denies any chest or abdominal pain. His oral intake is adequate. He had no more seizure episodes. He has good urinary output, more than 2.5 L. Vitals/I&O/Wt Last Vital Signs Temp 97.4 F L 10/26/19 08:00 Pulse 68 10/26/19 09:00 Resp 23 H 10/26/19 09:00 BP 157/84 10/26/19 09:00 Pulse Ox 91 10/26/19 09:00 10/25/19 10/26/19 10/26/19 22:59 06:59 14:59 Intake Total 320 / 650 238.167 / 888.167 220 / 220 Output Total 2150 / 2150 400 / 2550 Balance -1830 / -1500 -161.833 / -1661.833 220 / 220 Physical Exam Const: COMMON NORMALS: no acute distress and patient oriented x3 Resp: COMMON NORMALS: normal respiratory effort OTHER: Very minimal bibasilar Rales Cardio: COMMON NORMALS: regular rate, regular rhythm and S2 normal heart sound present RATE: regular rate RHYTHM: regular rhythm HEART SOUNDS: S2 normal heart sound present OTHER: No lower extremity edema GI: COMMON NORMALS: Normal to inspection, nondistended, normoactive bowel sounds present, Soft to palpation and non-tender PALPATION: Yes Soft to palpation Neuro: COMMON NORMALS: patient oriented x3 and no focal motor deficits Urinary Catheter Management^: Perez: Cath Placed During This Visit: yes Reason for Continuing Indwelling Catheter: Accurate Measurement of Urinary Output in Critically Ill Patients Urinary Catheter Date of Insertion: 10/22/19 Urinary Catheter Time of Insertion: 08:25 Data : 10/26/19 08:20 10/26/19 08:20 Micro: Microbiology 08/25/20 19:30 Blood Culture - Preliminary Blood Staphylococcus species 10/25/19 15:00 Gram Stain - Final Sputum - Expectorated Sputum A&P Assessment and plan (1) Acute respiratory failure with hypoxia: Status: Acute (2) COVID-19: Status: Acute (3) Accelerated hypertension: Status: Chronic (4) Urinary retention: Status: Acute (5) Tachyarrhythmia: Status: Acute (6) Community acquired pneumonia: This appears to be secondary to COVID-19. Secondary bacterial infection cannot be ruled out Status: Acute (7) Dehydration: Improved Status: Acute (8) Witnessed seizure-like activity: This lasted total of 30 seconds and was observed by RN. Patient stiffened mostly his upper extremities and rolled his eyes and head tilted to the left. Because of COVID 19 MRI cannot be obtained and this will need to be considered on outpatient basis post discharge. Patient denies headache and has no meningeal signs. Currently on Keppra and had no more episodes. Status: Acute Additional A&P Information PLAN: Will increase Lasix to twice daily and give 1 more IV dose now. We will try keeping patient's lungs as dry as possible as it appears he responded really well to diuresis. Continue close viral ICU monitoring including liver enzymes. Continue antiviral, steroids and Levaquin We will repeat CRP, d-dimer and ferritin in a.m. We will also request portable x-ray in a.m. Outpatient MRI with contrast and/or neurology follow-up should be considered. Awaiting Keppra level this morning. Continue Alfuzosin and Perez catheter for now. Consider voiding trials next week when need for diuresis improves versus outpatient follow-up with Dr. Segovia. 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
[2019-10-26] MEDS: FUROsemide 10 mg/mL SDV 4mL 40 MG IVP (11:20)
[2019-10-26 12:35] LABS: Glucose Point of Care 133 mg/dL (70-110)
[2019-10-26 12:35] LABS: Glucose Point of Care 109 mg/dL (70-110)
[2019-10-26 17:20] LABS: Glucose Point of Care 184 mg/dL (70-110)
[2019-10-26] MEDS: FUROsemide 40 mg Tablet PO (17:22)
[2019-10-26 23:15] LABS: Glucose Point of Care 174 mg/dL (70-110)
[2019-10-27] VITALS (25 sets, daily range): BP systolic 95–160; BP diastolic 48–95; PULSE 62–92; RESP 12–33; TEMP 36.5–37.2; O2SAT 87–97
[2019-10-27] MEDS: dilTIAZem 60 mg Tablet PO ×3 (05:36→17:30)
[2019-10-27 05:58] LABS: Basophils % 0.2 %; Hematocrit 45.6 % (42.0-52.0); Lymphocytes # 0.8 10^3/uL (0.8-4.8); Lymphocytes % 7.5 %; Mean Corpuscular HGB Conc 32.9 g/dL (30.0-36.0); Mean Corpuscular Hemoglobin 31.6 pg (28.0-34.0); Mean Platelet Volume 10.2 fL (7.4-10.4); Monocytes % 10.3 %; Neutrophils # 7.87 10^3/uL (1.8-7.7); Neutrophils % 79.1 %; Nucleated Red Blood Cells % 0 %; Platelet Count 483 10^3/cmm (130-400); Red Blood Count 4.75 10^6/uL (4.1-5.3)
[2019-10-27 06:16] LABS: D Dimer 0.46 ug/mIFEU (0-0.59)
[2019-10-27 06:18] LABS: Alanine Aminotransferase 146 U/L (0-41); Albumin Level 3.4 g/dL (3.5-5.2); Alkaline Phosphatase 47 IU/L (40-130); Anion Gap 15.6 (5-19); Aspartate Amino Transferase 71 U/L (0-40); Blood Urea Nitrogen 31 mg/dL (8-23); C Reactive Protein 4.6 mg/L (0.0-4.9); Calcium 8.7 mg/dL (8.5-10.5); Carbon Dioxide 26 mmol/L (22-29); Chloride 104 mmol/L (98-107); Globulin 2.6 g/dL (1.3-4.6); Glomerular Filtration Rate 76.2 mL/min (90-130); Glucose 171 mg/dL (65-115); Magnesium 2.3 mg/dL (1.7-2.3); Osmolality Calculated 293 mOsm/kg (285-295); Potassium 4.6 mmol/L (3.5-5.1); Sodium 141 mmol/L (136-145); Total Bilirubin 0.6 mg/dL (0.15-1.2)
[2019-10-27 06:33] LABS: Ferritin 1189 ng/mL (30-400)
--- NOTE | 2019-10-27 07:00 | XR_ITS ---
WS: [id number] PORTABLE CHEST HISTORY: COVID-19 pneumonia COMPARISON: 10/23/2019 Moderate elevation of the LEFT hemidiaphragm is similar to the prior study. Linear atelectasis at the LEFT lung base. Patchy areas of opacification in the mid to lower RIGHT lung are similar to the prio r study. No pleural effusion or pneumothorax. Cardiac size: Partially obscured by the elevated LEFT diaphragm. Mediastinum/Aorta: Normal mediastinum. No osseous abnormality seen. XR/XR chest 1V portable [id number] IMPRESSION: Moderate elevation LEFT hemidiaphragm with LEFT basilar atelectasis. Unchanged mid and lower lung RIGHT opacifications likely pneumonia.
[2019-10-27 08:11] LABS: Glucose Point of Care 145 mg/dL (70-110)
[2019-10-27] MEDS: aspirin 81 mg EC Tablet PO (08:36)
[2019-10-27] MEDS: pantoprazole DR 40 mg Tablet PO (08:36)
[2019-10-27] MEDS: potassium chloride ER 10 mEq Tablet 40 MEQ PO ×2 (08:36→17:33)
[2019-10-27] MEDS: isosorbide mononitrate ER 30 mg Tablet PO ×2 (08:38→17:26)
[2019-10-27] MEDS: FUROsemide 40 mg Tablet PO ×2 (08:38→17:26)
[2019-10-27] MEDS: lisinopril 20 mg Tablet 40 MG PO (08:39)
[2019-10-27] MEDS: alfuzosin 10 mg ER Tablet PO (08:39)
[2019-10-27] MEDS: ezetimibe 10 mg Tablet PO (08:40)
[2019-10-27] MEDS: apixaban 5 mg Tablet PO ×2 (08:41→17:32)
[2019-10-27] MEDS: dexamethasone 10 mg/mL INJ 6 MG IV (08:42)
[2019-10-27] MEDS: levETIRAcetam 500 mg Tablet 250 MG PO ×2 (08:42→17:29)
[2019-10-27] MEDS: levofloxacin-dextrose 5 % 750 MG/150 ML PREMIX 150 MG IV (08:46)
[2019-10-27 11:44] LABS: Glucose Point of Care 239 mg/dL (70-110)
[2019-10-27 14:04] LABS: NT Pro B Type Natriuretic Pept 106 pg/mL (0-125); Procalcitonin 0.09 ng/mL (0-0.5)
[2019-10-27 14:15] LABS: Creatine Phosphokinase 48 U/L (39-308)
[2019-10-27 14:20] LABS: Lactate Dehydrogenase 269 U/L (135-225)
[2019-10-27 14:21] LABS: ABG PCO2 37.3 mmHg (35-45); ABG PH Result 7.46 (7.35-7.45); Arterial Blood Gas Hematocrit 47.8 % (42-52); Base Excess ABG 2.9 mmol/L (-2.0-2.0); Blood Gas Allen Test Pos; Blood Gas Sample Type Arterial; HCO3 ABG 26.7 mmol/L (22-26); PO2 ABG 66.1 mmHg (80.0-100.0)
[2019-10-27 14:22] LABS: Blood Gas Operator Identificat MONRO; Blood Gas Sample Site Radial, right; Oxygen Device NC
[2019-10-27 14:39] LABS: Thyroid Stimulating Hormone 0.64 uIU/mL (0.27-4.20)
--- NOTE | 2019-10-27 15:22 | P.PN_ITS ---
Subjective Subjective: Interval history: No acute events overnight. Family has been updated. On examination patient is on 9 L oxygen supplementation requiring saturation to be over 90%. During my interview I decreased the oxygen supplementation to 6 L and he continued to do well. He denies of having any headache, nausea, vomiting, chest pain, loss of sense of smell or taste. Does complain of pain in chest on coughing. He states he is doing incentive spirometry regularly. On examination patient is in normal sinus rhythm. Vitals/I&O/Wt Last Vital Signs Temp 98.4 F 10/27/19 08:00 Pulse 91 10/27/19 12:00 Resp 33 H 10/27/19 12:00 BP 151/74 10/27/19 12:00 Pulse Ox 95 10/27/19 12:00 10/27/19 10/27/19 10/27/19 06:59 14:59 22:59 Intake Total 500 / 1260 390 / 390 Output Total 500 / 1600 Balance 0 / -340 390 / 390 Physical Exam Const: COMMON NORMALS: no acute distress, patient oriented x3 and alert HENMT: COMMON NORMALS: normocephalic and atraumatic HEAD & SCALP: normocephalic and atraumatic Eye: COMMON NORMALS: EOMs intact bilaterally, conjunctivae normal and no scleral icterus CONJUNCTIVA: Yes conjunctivae normal Neck/C-Spine: COMMON NORMALS: no lymphadenopathy and no meningeal signs Lymph: LYMPHATIC: no lymphadenopathy noted Chest: COMMONS NORMALS: normal palpation of entire chest wall Resp: COMMON NORMALS: normal respiratory effort and No use of accessory muscles OTHER: Very minimal bibasilar Rales Cardio: COMMON NORMALS: regular rate, regular rhythm, S2 normal heart sound present and No murmurs present (Cardio) RATE: regular rate RHYTHM: regular rhythm and abnormal rhythm irregularly irregular HEART SOUNDS: S2 normal heart sound present OTHER: No lower extremity edema GI: COMMON NORMALS: Normal to inspection, nondistended, normoactive bowel sounds present, Soft to palpation and non-tender PALPATION: Yes Soft to palpation RECTAL EXAM: Yes deferred : COMMON NORMALS: Yes no CVA tenderness BLADDER/KIDNEY EXAM: Yes no CVA tenderness Back/Pelvis: COMMON NORMALS: no CVA tenderness and thoracic and lumbar spine normal to inspection Extremity: COMMON NORMALS: normal to inspection and capillary refill normal Neuro: COMMON NORMALS: patient oriented x3 and no focal motor deficits SENSORIUM/ORIENTATION: Yes alert MENINGEAL SIGNS: Yes no meningeal signs Psych: COMMON NORMALS: mental status grossly normal, Normal thought process present and cooperative THOUGHT PROCESS: Normal thought process present Skin: COMMON NORMALS: no rashes or lesions noted GENERAL SKIN EXAM: no rashes or lesions noted Urinary Catheter Management^: Perez: Cath Placed During This Visit: yes Reason for Continuing Indwelling Catheter: Acute Urinary Retention or Obstruction Urinary Catheter Date of Insertion: 10/22/19 Urinary Catheter Time of Insertion: 08: Data : 10/27/19 04:45 10/27/19 04:45 Micro: Microbiology 10/21/19 19:30 Blood Culture - Final Blood Coagulase negativ staphylococc 10/25/19 15:00 Gram Stain - Final Sputum - Expectorated Sputum Sputum Culture - Preliminary 10/21/19 19:35 Blood Culture - Final Blood NO GROWTH AFTER 5 DAYS A&P Assessment and plan (1) Acute respiratory failure with hypoxia: Status: Acute (2) COVID-19: Status: Acute (3) Accelerated hypertension: Status: Chronic (4) Tachyarrhythmia: Status: Acute (5) Community acquired pneumonia: This appears to be secondary to COVID-19. Secondary bacterial infection cannot be ruled out Status: Acute (6) Dehydration: Improved Status: Acute (7) Witnessed seizure-like activity: This lasted total of 30 seconds and was observed by RN. Patient stiffened mostly his upper extremities and rolled his eyes and head tilted to the left. Could be secondary to transient hypoxia. Because of COVID 19 MRI cannot be obtained and this will need to be considered on outpatient basis post discharge. Patient denies headache and has no meningeal signs. Continue with oral Keppra. Seizure precautions. Status: Acute (8) Urinary retention: Status: Acute Additional A&P Information Acute respiratory failure with hypoxia: Most likely a combination of COVID-19 pneumonia along with possibility of bacterial pneumonia. Today was last dose of Remdesevir. Patient has completed 5-day course. We will discontinue Decadron as he has completed 6-day course. Switch over to oral prednisone 40 mg daily. Will wean off gradually. We will start patient on vitamin C and zinc. Continue with incentive spirometry. We will start patient on Advair and Combivent. Continue with Eliquis 5 mg twice daily. CTA done in earlier admission shows neg ative for PE. Most likely patient will require Eliquis overall 14 days post discharge. Check EKG to look for QTC abnormality. Check sputum culture, procalcitonin, proBNP. We will continue to follow inflammatory markers including C-reactive protein, CPK, ferritin, LDH. Check ABG. Chest x-ray from today morning appreciated. Stop levofloxacin and will escalate antibiotics to vancomycin and Zosyn for now. Check MRSA swab. If negative will discontinue vancomycin. Continue with Tessalon Perles. For now we will continue with Lasix 40 mg twice daily. At home he takes 20 mg daily. Echocardiogram done earlier in the admission shows a possible EF of 60% with no gross wall motion abnormality and mildly increased LA size. Hypertension: Continue with home dose of clonidine 0.1 as needed, Imdur 30 mg twice daily, lisinopril. If needed will add amlodipine 5 mg daily. Goal blood pressure less than 140/90 mmHg. Atrial fibrillation: At present patient is in sinus rhythm. Continue with Cardizem 60 mg p.o. every 6 hourly. Urinary retention:Continue Alfuzosin. We will start voiding trial with DC Perez. Patient will most likely to follow-up with Dr. Segovia as an outpatient. Have advised patient to ambulate in the room. Eliquis will have a DVT prophylaxis as well. Famotidine for PUD prophylaxis. Full code. Patient's D POA has been updated and all the questions have been answered. Attestations Medical Necessity Statement*: Acute hypoxic respiratory failure, COVID-19 pneumonia Critical Care Time: Critical Care Time (min): 80 Coding Level of Care Code Acute Route Specialist for [facility] Fwd Diagnoses Acute respiratory failure with hypoxia J96.01 COVID-19 U07.1 Accelerated hypertension I10 Tachyarrhythmia R00.0 Community acquired pneumonia J18.9 Dehydration E86.0 Witnessed seizure-like activity R56.9 Urinary retention R33.9
--- NOTE | 2019-10-27 15:43 | ECG_ITS ---
[facility] ED Test Date: 2019-10-27 Pat Name: Valentin Lawton Department: Room: ICU19 Gender: Male Hose Builder: : 1960 Requested By: Lisandro Kramer Order Number: [id number] Juan Francisco MD: Lamar Cates M.D. Measurements Intervals Heth Rate: 75 P: 22 NJ: 159 QRS: 12 QRSD: 96 T: 8 QT: 387 QTc: 434 Interpretive Statements SINUS RHYTHM MODERATE VOLTAGE CRITERIA FOR LVH, CONSIDER NORMAL VARIANT NONSPECIFIC T-WAVE ABNORMALITY Compared to ECG 10/22/2019 08:07:58 T-wave abnormality now present Short NJ interval no longer present Myocardial infarct finding no longer present Electronically Signed On 10-28-2019 21:15:55 CDT by Lamar Cates M.D. [id number]
[2019-10-27 16:03] LABS: Lactate (Lactic Acid level) 2.7 mmol/L (0.5-2.2)
[2019-10-27 16:46] LABS: Glucose Point of Care 146 mg/dL (70-110)
[2019-10-27] MEDS: piperacillin-tazobactam 3.375 GM in sodium chloride 0.9% (plus) 50 ML IV (17:28)
[2019-10-27] MEDS: zinc gluconate 50 mg Tablet PO (17:28)
[2019-10-27] MEDS: ascorbic acid 500 mg Tablet PO (17:32)
[2019-10-27 23:11] LABS: Glucose Point of Care 140 mg/dL (70-110)
[2019-10-28] VITALS (25 sets, daily range): BP systolic 122–172; BP diastolic 72–93; PULSE 55–94; RESP 17–31; TEMP 36.6–37; O2SAT 90–95
[2019-10-28] MEDS: dilTIAZem 60 mg Tablet PO ×5 (00:16→23:00)
[2019-10-28] MEDS: guaiFENesin-dextromethorphan UDC 10 mL 5 ML PO (00:16)
[2019-10-28] MEDS: piperacillin-tazobactam 3.375 GM in sodium chloride 0.9% (plus) 50 ML IV ×3 (00:16→16:47)
[2019-10-28 06:00] LABS: Basophils # 0.1 10^3/uL (0.0-0.1); Basophils % 0.4 %; Hematocrit 43.4 % (42.0-52.0); Hemoglobin 14.2 g/dL (11.7-16.6); Lymphocytes # 0.9 10^3/uL (0.8-4.8); Mean Corpuscular HGB Conc 32.7 g/dL (30.0-36.0); Mean Corpuscular Hemoglobin 30.8 pg (28.0-34.0); Mean Corpuscular Volume 94.1 fL (80-94); Monocytes # 1.3 10^3/uL (0.2-0.9); Monocytes % 9.3 %; Neutrophils # 10.59 10^3/uL (1.8-7.7); Neutrophils % 79.2 %; Nucleated Red Blood Cells % 0 %; Platelet Count 571 10^3/cmm (130-400); Red Blood Count 4.61 10^6/uL (4.1-5.3); Red Cell Distribution Width 12.3 % (12.1-15.1); White Blood Count 13.4 10^3/uL (4.0-10.0)
[2019-10-28 06:33] LABS: Creatine Phosphokinase 136 U/L (39-308)
[2019-10-28 06:40] LABS: Alanine Aminotransferase 104 U/L (0-41); Albumin Level 3.1 g/dL (3.5-5.2); Alkaline Phosphatase 41 IU/L (40-130); Aspartate Amino Transferase 31 U/L (0-40); Blood Urea Nitrogen 29 mg/dL (8-23); Calcium 8.6 mg/dL (8.5-10.5); Carbon Dioxide 20 mmol/L (22-29); Chloride 105 mmol/L (98-107); Glomerular Filtration Rate 76.2 mL/min (90-130); Glucose 152 mg/dL (65-115); Magnesium 2.3 mg/dL (1.7-2.3); Osmolality Calculated 288 mOsm/kg (285-295); Sodium 139 mmol/L (136-145); Total Bilirubin 0.8 mg/dL (0.15-1.2); Total Protein 6.1 g/dL (6.6-8.7)
[2019-10-28 06:50] LABS: Anion Gap 18.7 (5-19); Potassium 4.7 mmol/L (3.5-5.1)
[2019-10-28 06:55] LABS: Ferritin 1175 ng/mL (30-400); Lactate Dehydrogenase 256 U/L (135-225)
[2019-10-28 07:55] LABS: Glucose Point of Care 147 mg/dL (70-110)
[2019-10-28] MEDS: FUROsemide 40 mg Tablet PO (08:02)
[2019-10-28] MEDS: isosorbide mononitrate ER 30 mg Tablet PO ×2 (10:09→18:52)
[2019-10-28] MEDS: zinc gluconate 50 mg Tablet PO (10:10)
[2019-10-28] MEDS: predniSONE 20 mg Tablet 40 MG PO (10:10)
[2019-10-28] MEDS: apixaban 5 mg Tablet PO ×2 (10:10→18:22)
[2019-10-28] MEDS: potassium chloride ER 10 mEq Tablet 40 MEQ PO ×2 (10:10→18:22)
[2019-10-28] MEDS: lisinopril 20 mg Tablet 40 MG PO (10:11)
[2019-10-28] MEDS: pantoprazole DR 40 mg Tablet PO (10:11)
[2019-10-28] MEDS: levETIRAcetam 500 mg Tablet 250 MG PO ×2 (10:12→18:22)
[2019-10-28] MEDS: aspirin 81 mg EC Tablet PO (10:13)
[2019-10-28] MEDS: dexamethasone 10 mg/mL INJ 6 MG IV (10:13)
[2019-10-28] MEDS: ezetimibe 10 mg Tablet PO (10:13)
[2019-10-28] MEDS: ascorbic acid 500 mg Tablet PO ×2 (10:14→18:22)
[2019-10-28] MEDS: alfuzosin 10 mg ER Tablet PO (10:14)
[2019-10-28 11:55] LABS: Glucose Point of Care 185 mg/dL (70-110)
--- NOTE | 2019-10-28 13:49 | PM.PN ---
Subjective Subjective: Interval history: No acute events overnight. Family has been updated. On examination patient is on 3 L NC oxygen supplementation requiring saturation to be over 90%. During examination patient sitting comfortably in chair. He states his energy levels are good. Denies of any nausea, headache, chest pain, palpitation, dizziness, states his appetite is good and sensation of smell and taste are back. He states he is doing incentive spirometry regularly. On examination patient is in normal sinus rhythm. Vitals/I&O/Wt Last Vital Signs Temp 98.5 F 10/28/19 10:00 Pulse 90 10/28/19 13:00 Resp 23 H 10/28/19 13:00 BP 144/80 10/28/19 13:00 Pulse Ox 93 10/28/19 13:00 10/27/19 10/28/19 10/28/19 22:59 06:59 14:59 Intake Total 1150 / 1540 550 / 2090 950 / 950 Output Total 950 / 950 550 / 1500 1200 / 1200 Balance 200 / 590 0 / 590 -250 / -250 Physical Exam Const: COMMON NORMALS: no acute distress, patient oriented x3 and alert HENMT: COMMON NORMALS: normocephalic and atraumatic HEAD & SCALP: normocephalic and atraumatic Eye: COMMON NORMALS: EOMs intact bilaterally, conjunctivae normal and no scleral icterus CONJUNCTIVA: Yes conjunctivae normal Neck/C-Spine: COMMON NORMALS: no lymphadenopathy and no meningeal signs Lymph: LYMPHATIC: no lymphadenopathy noted Chest: COMMONS NORMALS: normal palpation of entire chest wall Resp: COMMON NORMALS: normal respiratory effort and No use of accessory muscles OTHER: Very minimal bibasilar Rales Cardio: COMMON NORMALS: regular rate, regular rhythm, S2 normal heart sound present and No murmurs present (Cardio) RATE: regular rate RHYTHM: regular rhythm and abnormal rhythm irregularly irregular HEART SOUNDS: S2 normal heart sound present OTHER: No lower extremity edema GI: COMMON NORMALS: Normal to inspection, nondistended, normoactive bowel sounds present, Soft to palpation and non-tender PALPATION: Yes Soft to palpation RECTAL EXAM: Yes deferred : COMMON NORMALS: Yes no CVA tenderness BLADDER/KIDNEY EXAM: Yes no CVA tenderness Back/Pelvis: COMMON NORMALS: no CVA tenderness and thoracic and lumbar spine normal to inspection Extremity: COMMON NORMALS: normal to inspection and capillary refill normal Neuro: COMMON NORMALS: patient oriented x3 and no focal motor deficits SENSORIUM/ORIENTATION: Yes alert MENINGEAL SIGNS: Yes no meningeal signs Psych: COMMON NORMALS: mental status grossly normal, Normal thought process present and cooperative THOUGHT PROCESS: Normal thought process present Skin: COMMON NORMALS: no rashes or lesions noted GENERAL SKIN EXAM: no rashes or lesions noted Urinary Catheter Management^: Perez: Cath Placed During This Visit: yes, but has since been removed by the nurse Reason for Continuing Indwelling Catheter: Decision to DC Catheter Urinary Catheter Date of Insertion: 10/22/19 Urinary Catheter Time of Insertion: 08:25 Date Urinary Catheter Removed: 10/28/19 Time Urinary Catheter Discontinued: 12:30 Data : 10/28/19 04:50 10/28/19 04:50 Micro: Microbiology 10/25/19 15:00 Gram Stain - Final Sputum - Expectorated Sputum Sputum Culture - Final 10/27/19 17:00 Legionella Urinary Antigen - Final Urine Catheterized 10/21/19 19:30 Blood Culture - Final Blood Coagulase negativ staphylococc A&P Assessment and plan (1) Acute respiratory failure with hypoxia: Status: Acute (2) COVID-19: Status: Acute (3) Accelerated hypertension: Status: Chronic (4) Tachyarrhythmia: Status: Acute (5) Community acquired pneumonia: This appears to be secondary to COVID-19. Secondary bacterial infection cannot be ruled out Status: Acute (6) Dehydration: Improved Status: Acute (7) Witnessed seizure-like activity: This lasted total of 30 seconds and was observed by RN. Patient stiffened mostly his upper extremities and rolled his eyes and head tilted to the left. Could be secondary to transient hypoxia. Because of COVID 19 MRI cannot be obtained and this will need to be considered on outpatient basis post discharge. Patient denies headache and has no meningeal signs. Continue with oral Keppra. Seizure precautions. Status: Acute (8) Urinary retention: Status: Acute Additional A&P Information Acute respiratory failure with hypoxia: Most likely a combination of COVID-19 pneumonia along with possibility of bacterial pneumonia. Finish last dose of Remdesevir yesterday. Has finished overall 5-day course. Continue with prednisone 40 mg daily. Started today. Willing to be weaned off gradually as an outpatient. Continue with vitamin C and zinc. Continue with incentive spirometry. We will start patient on Advair and Combivent. Continue with Eliquis 5 mg twice daily. CTA done in earlier admission shows negative for PE. Most likely patient will require Eliquis overall 14 days post discharge. Check EKG to look for QTC abnormality. We will continue to follow inflammatory markers including C-reactive protein, CPK, ferritin, LDH. Chest x-ray from today morning appreciated. For now we will continue with vancomycin and Zosyn. Will most likely do a short course because patient is improving. MRSA test still pending. Continue with Tessalon Perles. Echocardiogram done earlier in the admission shows a possible EF of 60% with no gross wall motion abnormality and mildly increased LA size. Hypertension: Continue with home dose of clonidine 0.1 as needed, Imdur 30 mg twice daily, lisinopril. Blood pressures have been running on the higher side. Goal blood pressures less than 140/90 mmHg. For better blood pressure control will change Lasix to chlorthalidone 25 mg daily. Atrial fibrillation: At present patient is in sinus rhythm. Continue with Cardizem 60 mg p.o. every 6 hourly. Urinary retention:Continue Alfuzosin. We will start voiding trial with DC Perez. Patient will most likely to follow-up with Dr. Segovia as an outpatient. Have advised patient to ambulate in the room. Eliquis will have a DVT prophylaxis as well. Famotidine for PUD prophylaxis. Full code. Patient's D POA has been updated and all the questions have been answered. The patient continues to do well can most likely plan to discharge in next 2 days. Will do home oxygen evaluation prior to discharge. Most likely patient would need to follow-up with a neurologist as an outpatient because of new seizure episode, he would most likely need an event monitor as well due to paroxysmal A. fib. Attestations Medical Necessity Statement*: COVID-19 pneumonia, acute hypoxic respiratory failure, hypertension Critical Care Time: Critical Care Time (min): 80 Coding Level of Care Code Acute Glassware Engraver for [facility] Fwd Diagnoses Acute respiratory failure with hypoxia J96.01 COVID-19 U07.1 Accelerated hypertension I10 Tachyarrhythmia R00.0 Community acquired pneumonia J18.9 Dehydration E86.0 Witnessed seizure-like activity R56.9 Urinary retention R33.9
[2019-10-28] MEDS: chlorthalidone 25 mg Tablet PO (14:14)
[2019-10-28 18:34] LABS: Glucose Point of Care 212 mg/dL (70-110)
[2019-10-28 20:33] LABS: Glucose Point of Care 252 mg/dL (70-110)
[2019-10-29] VITALS (25 sets, daily range): BP systolic 107–180; BP diastolic 64–110; PULSE 55–99; RESP 16–32; TEMP 36.5–36.9; O2SAT 90–96
[2019-10-29] MEDS: piperacillin-tazobactam 3.375 GM in sodium chloride 0.9% (plus) 50 ML IV ×2 (00:14→08:33)
[2019-10-29 02:48] LABS: Basophils # 0.1 10^3/uL (0.0-0.1); Basophils % 0.4 %; Hematocrit 46.8 % (42.0-52.0); Hemoglobin 15.4 g/dL (11.7-16.6); Lymphocytes % 6.2 %; Mean Corpuscular HGB Conc 32.9 g/dL (30.0-36.0); Mean Corpuscular Hemoglobin 30.9 pg (28.0-34.0); Mean Platelet Volume 10.4 fL (7.4-10.4); Monocytes # 1.3 10^3/uL (0.2-0.9); Monocytes % 7.9 %; Neutrophils # 12.95 10^3/uL (1.8-7.7); Neutrophils % 79.8 %; Nucleated Red Blood Cells % 0 %; Platelet Count 563 10^3/cmm (130-400); Red Blood Count 4.98 10^6/uL (4.1-5.3); Red Cell Distribution Width 12.2 % (12.1-15.1); White Blood Count 16.2 10^3/uL (4.0-10.0)
[2019-10-29 03:13] LABS: Alanine Aminotransferase 104 U/L (0-41); Albumin Level 3.4 g/dL (3.5-5.2); Alkaline Phosphatase 43 IU/L (40-130); Blood Urea Nitrogen 32 mg/dL (8-23); C Reactive Protein 1.1 mg/L (0.0-4.9); Calcium 8.7 mg/dL (8.5-10.5); Carbon Dioxide 18 mmol/L (22-29); Chloride 101 mmol/L (98-107); Creatine Phosphokinase 90 U/L (39-308); Globulin 3.1 g/dL (1.3-4.6); Glomerular Filtration Rate 76.2 mL/min (90-130); Glucose 175 mg/dL (65-115); Magnesium 2.4 mg/dL (1.7-2.3); Osmolality Calculated 277 mOsm/kg (285-295); Sodium 133 mmol/L (136-145); Total Bilirubin 0.7 mg/dL (0.15-1.2); Total Protein 6.5 g/dL (6.6-8.7)
[2019-10-29 03:14] LABS: Aspartate Amino Transferase 35 U/L (0-40)
[2019-10-29 03:15] LABS: Lactate Dehydrogenase 341 U/L (135-225)
[2019-10-29 03:24] LABS: Ferritin 1272 ng/mL (30-400)
[2019-10-29 03:28] LABS: Vancomycin Trough 16.7 ug/mL (10-15)
[2019-10-29 03:48] LABS: Slide Review Slide Review Perform
[2019-10-29] MEDS: cloNIDine 0.1 mg Tablet PO (05:00)
[2019-10-29] MEDS: dilTIAZem 60 mg Tablet PO ×4 (05:40→23:45)
[2019-10-29 08:01] LABS: Glucose Point of Care 136 mg/dL (70-110)
[2019-10-29] MEDS: aspirin 81 mg EC Tablet PO (08:33)
[2019-10-29] MEDS: apixaban 5 mg Tablet PO ×2 (08:34→17:44)
[2019-10-29] MEDS: ezetimibe 10 mg Tablet PO (08:34)
[2019-10-29] MEDS: alfuzosin 10 mg ER Tablet PO (08:34)
[2019-10-29] MEDS: lisinopril 20 mg Tablet 40 MG PO (08:35)
[2019-10-29] MEDS: isosorbide mononitrate ER 30 mg Tablet PO ×2 (08:35→17:44)
[2019-10-29] MEDS: pantoprazole DR 40 mg Tablet PO (08:35)
[2019-10-29] MEDS: chlorthalidone 25 mg Tablet PO (08:35)
[2019-10-29] MEDS: ascorbic acid 500 mg Tablet PO ×2 (08:35→17:45)
[2019-10-29] MEDS: levETIRAcetam 500 mg Tablet 250 MG PO ×2 (08:36→17:44)
[2019-10-29] MEDS: zinc gluconate 50 mg Tablet PO (08:36)
[2019-10-29] MEDS: predniSONE 20 mg Tablet 40 MG PO (08:37)
[2019-10-29 11:22] LABS: Glucose Point of Care 160 mg/dL (70-110)
--- NOTE | 2019-10-29 13:47 | PM.PN ---
Subjective Subjective: Interval history: No acute events overnight. Patient has been comfortable. Sitting in chair. Doing incentive spirometry. His saturations have maintained over 90% on 2 to 3 L of nasal cannula oxygen supplementation both at rest and on ambulation. His saturation goes down to 88% on ambulation. He states he is feeling a lot better and energy levels are better as well. His appetite is improved as well. Vitals/I&O/Wt Last Vital Signs Temp 98.4 F 10/29/19 08:00 Pulse 76 10/29/19 11:00 Resp 22 H 10/29/19 11:00 BP 127/87 10/29/19 11:00 Pulse Ox 93 10/29/19 11:00 10/28/19 10/29/19 10/29/19 22:59 06:59 14:59 Intake Total 700 / 1700 250 / 1950 950 / 950 Output Total 300 / 1500 200 / 1700 100 / 100 Balance 400 / 200 50 / 250 850 / 850 Physical Exam Const: COMMON NORMALS: no acute distress, patient oriented x3 and alert HENMT: COMMON NORMALS: normocephalic and atraumatic HEAD & SCALP: normocephalic and atraumatic Eye: COMMON NORMALS: EOMs intact bilaterally, conjunctivae normal and no scleral icterus CONJUNCTIVA: Yes conjunctivae normal Neck/C-Spine: COMMON NORMALS: no lymphadenopathy and no meningeal signs Lymph: LYMPHATIC: no lymphadenopathy noted Chest: COMMONS NORMALS: normal palpation of entire chest wall Resp: COMMON NORMALS: normal respiratory effort and No use of accessory muscles OTHER: Very minimal bibasilar Rales Cardio: COMMON NORMALS: regular rate, regular rhythm, S2 normal heart sound present and No murmurs present (Cardio) RATE: regular rate RHYTHM: regular rhythm and abnormal rhythm irregularly irregular HEART SOUNDS: S2 normal heart sound present OTHER: No lower extremity edema GI: COMMON NORMALS: Normal to inspection, nondistended, normoactive bowel sounds present, Soft to palpation and non-tender PALPATION: Yes Soft to palpation RECTAL EXAM: Yes deferred : COMMON NORMALS: Yes no CVA tenderness BLADDER/KIDNEY EXAM: Yes no CVA tenderness Back/Pelvis: COMMON NORMALS: no CVA tenderness and thoracic and lumbar spine normal to inspection Extremity: COMMON NORMALS: normal to inspection and capillary refill normal Neuro: COMMON NORMALS: patient oriented x3 and no focal motor deficits SENSORIUM/ORIENTATION: Yes alert MENINGEAL SIGNS: Yes no meningeal signs Psych: COMMON NORMALS: mental status grossly normal, Normal thought process present and cooperative THOUGHT PROCESS: Normal thought process present Skin: COMMON NORMALS: no rashes or lesions noted GENERAL SKIN EXAM: no rashes or lesions noted Urinary Catheter Management^: Perez: Cath Placed During This Visit: yes, but has since been removed by the nurse Reason for Continuing Indwelling Catheter: Decision to DC Catheter Urinary Catheter Date of Insertion: 10/22/19 Urinary Catheter Time of Insertion: 08: Date Urinary Catheter Removed: 10/28/19 Time Urinary Catheter Discontinued: 12:30 Data : 10/29/19 02:00 10/29/19 02:00 Micro: Microbiology 10/25/19 15:00 Gram Stain - Final Sputum - Expectorated Sputum Sputum Culture - Final A&P Assessment and plan (1) Acute respiratory failure with hypoxia: Status: Acute (2) COVID-19: Status: Acute (3) Accelerated hypertension: Status: Chronic (4) Tachyarrhythmia: Status: Acute (5) Community acquired pneumonia: This appears to be secondary to COVID-19. Secondary bacterial infection cannot be ruled out Status: Acute (6) Dehydration: Improved Status: Acute (7) Witnessed seizure-like activity: This lasted total of 30 seconds and was observed by RN. Patient stiffened mostly his upper extremities and rolled his eyes and head tilted to the left. Could be secondary to transient hypoxia. Because of COVID 19 MRI cannot be obtained and this will need to be considered on outpatient basis post discharge. Patient denies headache and has no meningeal signs. Continue with oral Keppra. Seizure precautions. Status: Acute (8) Urinary retention: Status: Acute Additional A&P Information Acute respiratory failure with hypoxia: Most likely a combination of COVID-19 pneumonia along with possibility of bacterial pneumonia. Finish last dose of Remdesevir on October 28, 2019 has finished overall 5-day course. Continue with prednisone 40 mg daily. Started today. Willing to be weaned off gradually as an outpatient. Continue with vitamin C and zinc. Continue with incentive spirometry. We will start patient on Advair and Combivent. Continue with Eliquis 5 mg twice daily. CTA done in earlier admission shows negative for PE. Most likely patient will require Eliquis overall 14 days post discharge. Check EKG to look for QTC abnormality. We will continue to follow inflammatory markers including C-reactive protein, CPK, ferritin, LDH. Chest x-ray from today morning appreciated. Patient has received more than 5 days of IV antibiotics. We will stop today. Will monitor for next 24 hours. Continue with Tessalon Perles. Echocardiogram done earlier in the admission shows a possible EF of 60% with no gross wall motion abnormality and mildly increased LA size. Hypertension: Continue with home dose of clonidine 0.1 as needed, Imdur 30 mg twice daily, lisinopril. Blood pressures have been running on the higher side. Goal blood pressures less than 140/90 mmHg. Blood pressure better controlled since Lasix has been changed to chlorthalidone. Atrial fibrillation: At present patient is in sinus rhythm. Continue with Cardizem 60 mg p.o. every 6 hourly. Urinary retention:Continue Alfuzosin. We will start voiding trial with DC Perez. Patient will most likely to follow-up with Dr. Segovia as an outpatient. Have advised patient to ambulate in the room. Brenden will have a DVT prophylaxis as well. Famotidine for PUD prophylaxis. Full code. Patient's D POA has been updated and all the questions have been answered. The patient continues to do well can most likely plan to discharge in next 2 days. Will do home oxygen evaluation prior to discharge. Most likely patient would need to follow-up with a neurologist as an outpatient because of new seizure episode, he would most likely need an event monitor as well due to paroxysmal A. fib. Attestations Medical Necessity Statement*: Acute hypoxic respiratory failure, COVID-19 pneumonia, atrial fibrillation, seizure disorder Critical Care Time: Critical Care Time (min): 80 Coding Level of Care Code Acute Inside Barrel Polisher for [facility] Fwd Diagnoses Acute respiratory failure with hypoxia J96.01 COVID-19 U07.1 Accelerated hypertension I10 Tachyarrhythmia R00.0 Community acquired pneumonia J18.9 Dehydration E86.0 Witnessed seizure-like activity R56.9 Urinary retention R33.9
[2019-10-29 16:42] LABS: Glucose Point of Care 217 mg/dL (70-110)
[2019-10-29 19:57] LABS: Glucose Point of Care 225 mg/dL (70-110)
[2019-10-30] VITALS (18 sets, daily range): BP systolic 117–148; BP diastolic 70–93; PULSE 58–91; RESP 15–23; TEMP 36.5–37.1; O2SAT 87–97
[2019-10-30] MEDS: dilTIAZem 60 mg Tablet PO ×2 (05:04→11:10)
[2019-10-30 06:43] LABS: Hematocrit 48.4 % (42.0-52.0); Hemoglobin 15.7 g/dL (11.7-16.6); Mean Corpuscular HGB Conc 32.4 g/dL (30.0-36.0); Mean Corpuscular Hemoglobin 31.2 pg (28.0-34.0); Mean Corpuscular Volume 96.2 fL (80-94); Mean Platelet Volume 10.5 fL (7.4-10.4); Platelet Count 571 10^3/cmm (130-400); Red Blood Count 5.03 10^6/uL (4.1-5.3); Red Cell Distribution Width 12.4 % (12.1-15.1); White Blood Count 17.5 10^3/uL (4.0-10.0)
[2019-10-30 07:46] LABS: Slide Review Slide Review Perform
[2019-10-30 07:47] LABS: Absolute Neutrophil 14.9 10^3/cmm (1.4-6.5); Absolute Segmented Neutrophil 14.4 10/cmm (1.6-7.1); Band Neutrophils Absolute 0.5 10^3/cmm (0.0-1.2); Lymphocytes 11 %; Monocytes Absolute 0.2 10^3/cmm (0.1-0.6); Platelet Estimate Increased (Normal); Segmented Neutrophils 82 %; Total Cells Counted 100 (0-100)
[2019-10-30] MEDS: chlorthalidone 25 mg Tablet PO (08:30)
[2019-10-30] MEDS: alfuzosin 10 mg ER Tablet PO (08:32)
[2019-10-30] MEDS: apixaban 5 mg Tablet PO (08:33)
[2019-10-30] MEDS: isosorbide mononitrate ER 30 mg Tablet PO (08:33)
[2019-10-30] MEDS: ascorbic acid 500 mg Tablet PO (08:33)
[2019-10-30] MEDS: pantoprazole DR 40 mg Tablet PO (08:33)
[2019-10-30] MEDS: ezetimibe 10 mg Tablet PO (08:33)
[2019-10-30] MEDS: aspirin 81 mg EC Tablet PO (08:34)
[2019-10-30] MEDS: lisinopril 20 mg Tablet 40 MG PO (08:34)
[2019-10-30] MEDS: zinc gluconate 50 mg Tablet PO (08:34)
[2019-10-30] MEDS: levETIRAcetam 500 mg Tablet 250 MG PO (08:35)
[2019-10-30] MEDS: predniSONE 10 mg Tablet 30 MG PO (08:36)
[2019-10-30 10:04] LABS: Alanine Aminotransferase 97 U/L (0-41); Alkaline Phosphatase 51 IU/L (40-130); Anion Gap 16.5 (5-19); Aspartate Amino Transferase 29 U/L (0-40); Blood Urea Nitrogen 31 mg/dL (8-23); C Reactive Protein 0.6 mg/L (0.0-4.9); Calcium 9.4 mg/dL (8.5-10.5); Carbon Dioxide 24 mmol/L (22-29); Chloride 99 mmol/L (98-107); Creatine Phosphokinase 71 U/L (39-308); Globulin 3.2 g/dL (1.3-4.6); Glomerular Filtration Rate 76.2 mL/min (90-130); Glucose 103 mg/dL (65-115); Lactate Dehydrogenase 285 U/L (135-225); Osmolality Calculated 277 mOsm/kg (285-295); Potassium 4.5 mmol/L (3.5-5.1); Sodium 135 mmol/L (136-145); Total Bilirubin 0.8 mg/dL (0.15-1.2); Total Protein 7.2 g/dL (6.6-8.7)
[2019-10-30 10:17] LABS: Ferritin 1526 ng/mL (30-400)
[2019-10-30 11:38] LABS: Glucose Point of Care 126 mg/dL (70-110)
[2019-10-30 11:47] LABS: Levetiracetam Keppra 4.2 mcg/mL
--- NOTE | 2019-10-30 12:39 | PM.DCS ---
Discharge Providers Date of Admission: 10/21/19 20:24 Date of Discharge: October 30, 2019 Attending Provider at Admission: Munir Robins MD Attending Provider at Discharge: Lisandro Kramer MD Primary Care Provider: CORINA Brooks Diagnoses at Discharge Discharge Diagnosis (1) COVID-19: Status: Acute (2) Acute respiratory failure with hypoxia: Status: Acute (3) Accelerated hypertension: Status: Chronic (4) Tachyarrhythmia: Status: Acute (5) Community acquired pneumonia: Status: Acute (6) Dehydration: Status: Acute (7) Witnessed seizure-like activity: Status: Acute (8) Urinary retention: Status: Acute Reason for Visit Reason for Visit: covid symptoms Hospital Course Discharge Summary: Valentin Lawton is a 59 year old male with PMHx of CAD s/p mLAD stent in 02/10/2013, hypertension, h/o statin allergy (crestor, lipitor) and preserved LV systolic function presented to [facility] care. He also gives h/o transient atrial fibrillation in 2014. He [facility] with significant shortness of breath over the last 3 days. He denies chest pain per se but reports that could not take deep breath in. He has been having white phlegm productive cough. Reports that his also been somewhat similarly sick but less severe. He tested positive for COVID-19 and admitted for further monitoring and treatment. He denied diarrhea but does report some nonspecific generalized abdominal discomfort. While in VICU patient was trying to urinate when developed tachycardia with heart rate in 200s. This was short-lived and we were unable to capture on EKG prior to patient converting back to normal sinus rhythm. Reports that he felt heart palpitations during this episode. Reports that previously he had one episode of atrial fibrillation on time ago but was not treated with anticoagulation. Coronary he received 2 stents around year 2013 and since then has been chest pain-free even with activity. He retired 2 years ago but reports that he is still keeps himself active. He does not use oxygen at home. He smoked minimally up until 40 years ago. He reports that his both lower extremities were slightly swollen but not during my evaluation. Patient's bladder was scanned showed more than 400 mL of urine and Perez catheter was placed. Patient had episode of seizure mostly manifested as bilateral upper extremity stiffening with head slightly turned to the left as I was told. It lasted 10 seconds and repeated 3 times. He was somewhat postictal. 2 mg Ativan and thousand grams of Keppra was requested and shortly after when I saw the patient he was asymptomatic. He knew where he was. He showed no evidence of focal neurological findings. He had normal shoulder shrug and had no pronator drift. No cerebellar signs. He denied any headache or neck pain. His neck is supple and he has no meningeal signs. At the early part of the admission patient required high amount of oxygen supplementation to keep saturation over 90%. At 1 point he was requiring high flow oxygen supplementation as well. He was started on antiviral treatment with Remdesevir and dexamethasone. He finished a 5-day course. His hospital stay was complicated by him developing focal seizures for which he was treated with Keppra. CT head was done which is negative for any stroke. MRI could not be done because patient was COVID-19 positive.. He also developed paroxysmal A. fib for which he was transiently on Cardizem drip which was later transitioned over to oral Cardizem. He was treated with vitamin C, zinc, Eliquis as blood thinner. During hospitalization he was also found to have extremely elevated blood pressure for which his antihypertensives were adjusted. His home dose of Lasix has been changed over to chlorthalidone. Echocardiogram was done which showed an EF of 60%, thickened mitral valve and mildly increased LA size. He responded well to the treatment and has been off the antiviral treatment for last 3 to 4 days. He of dexamethasone was also transitioned over to oral prednisone. He would need a Medrol pack to be weaned off gradually. Home O2 evaluation has been done prior to discharge and oxygen has been provided to him accordingly. He is being discharged on vitamin C, zinc, Eliquis, and inhalation with Spiriva and Advair for next 2 weeks Patient has been advised to follow-up with Dr. Coley from neurology in 1 month for possible need of MRI given new development of seizure while in hospital. 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 The treatment plan has been discussed in detail with both with patient and his Ms. Bryant and all the questions have been answered. Patient has been advised to maintain social distancing for next 2 weeks. To make sure that he should avoid being in public places. And if needed and he should always be wearing a mask. Physical Exam Const: COMMON NORMALS: no acute distress, patient oriented x3 and alert HENMT: COMMON NORMALS: normocephalic and atraumatic HEAD & SCALP: normocephalic and atraumatic Eye: COMMON NORMALS: EOMs intact bilaterally, conjunctivae normal and no scleral icterus CONJUNCTIVA: Yes conjunctivae normal Neck/C-Spine: COMMON NORMALS: no lymphadenopathy and no meningeal signs Lymph: LYMPHATIC: no lymphadenopathy noted Chest: COMMONS NORMALS: normal palpation of entire chest wall Resp: COMMON NORMALS: normal respiratory effort and No use of accessory muscles OTHER: Very minimal bibasilar Rales Cardio: COMMON NORMALS: regular rate, regular rhythm, S2 normal heart sound present and No murmurs present (Cardio) RATE: regular rate RHYTHM: regular rhythm and abnormal rhythm irregularly irregular HEART SOUNDS: S2 normal heart sound present OTHER: No lower extremity edema GI: COMMON NORMALS: Normal to inspection, nondistended, normoactive bowel sounds present, Soft to palpation and non-tender PALPATION: Yes Soft to palpation RECTAL EXAM: Yes deferred : COMMON NORMALS: Yes no CVA tenderness BLADDER/KIDNEY EXAM: Yes no CVA tenderness Back/Pelvis: COMMON NORMALS: no CVA tenderness and thoracic and lumbar spine normal to inspection Extremity: COMMON NORMALS: normal to inspection and capillary refill normal Neuro: COMMON NORMALS: patient oriented x3 and no focal motor deficits SENSORIUM/ORIENTATION: Yes alert MENINGEAL SIGNS: Yes no meningeal signs Psych: COMMON NORMALS: mental status grossly normal, Normal thought process present and cooperative THOUGHT PROCESS: Normal thought process present Skin: COMMON NORMALS: no rashes or lesions noted GENERAL SKIN EXAM: no rashes or lesions noted Urinary Catheter Management^: Perez: Cath Placed During This Visit: yes, but has since been removed by the nurse Reason for Continuing Indwelling Catheter: Decision to DC Catheter Urinary Catheter Date of Insertion: 10/22/19 Urinary Catheter Time of Insertion: 08:25 Date Urinary Catheter Removed: 10/28/19 Time Urinary Catheter Discontinued: 12:30 Discharge Data Data Completed and Pending: Completed Studies During Hospitalization Category Date Time Status CT angio chest PE protcl [id number] Urge nt Cat Scan 10/24/19 14:[address] chest wo con 7 1250 Routine Cat Scan 10/22/19 18:[address] head wo con* 7 0450 Routine Cat Scan 10/22/19 13:50 Completed XR chest 1V stephen ble [id number] Routine Exams 10/23/19 06:00 Completed XR chest 1V stephen ble [id number] Routine Exams 10/27/19 07:00 Completed XR chest 1V stephen ble [id number] Stat Exams 10/21/19 18:36 Completed CV echo complete* [id number] Routine Ultrasound 10/25/19 11:48 Completed Pending at discharge Category Date Time Status Arterial Blood Ga s W/O Coox AM LABS Lab 10/28/19 04:00 Ordered Nose Culture Rout ine Lab 10/28/19 04:50 Results Sputum Culture an d Gram Stain Routi ne Lab 10/28/19 08:27 Ordered Labs from last 24 hours 10/30/19 10/30/19 10/30/19 11:17 08:20 04:45 WBC RBC Hgb Hct MCV MCH MCHC RDW Plt Count MPV Lymph % (Auto) [place] % (Auto) Lymph # (Auto) [place] # (Auto) Total Counted Absolute Neutrophi ls Segmented Neutroph ils Abs Segm Neuts (Ma n) Band Neutrophils Abs Band Neuts (Ma n) Lymphocytes (Manua l) Monocytes (Manual) Absolute Monocytes Metamyelocytes Platelet Estimate Sodium 135 L Cancelled Potassium 4.5 Cancelled Chloride 99 Cancelled Carbon Dioxide 24 Cancelled Anion Gap 16.5 Cancelled BUN 31 H Cancelled Creatinine 1.0 Cancelled GFR Calculation 76.2 L Cancelled Glucose 103 Cancelled POC Glucose 126 Calculated Osmolal ity 277 L Cancelled Calcium 9.4 Cancelled Ferritin 1526 H Total Bilirubin 0.8 Cancelled AST 29 Cancelled ALT 97 H Cancelled Alkaline Phosphata se 51 Cancelled Lactate Dehydrogen ase 285 H Creatine Kinase 71 C-Reactive Protein 0.6 Total Protein 7.2 Cancelled Albumin 4.0 Cancelled Globulin 3.2 Cancelled Levetiracetam 10/30/19 10/30/19 10/30/19 04:45 04:45 04:45 WBC 17.5 H RBC 5.03 Hgb 15.7 Hct 48.4 MCV 96.2 H MCH 31.2 MCHC 32.4 RDW 12.4 Plt Count 571 H MPV 10.5 H Lymph % (Auto) Not Reportable [place] % (Auto) Not Reportable Lymph # (Auto) Not Reportable [place] # (Auto) Not Reportable Total Counted 100 Absolute Neutrophi ls 14.9 H Segmented Neutroph ils 82 Abs Segm Neuts (Ma n) 14.4 H Band Neutrophils 3.0 Abs Band Neuts (Ma n) 0.5 Lymphocytes (Manua l) 11 Monocytes (Manual) 1.0 Absolute Monocytes 0.2 Metamyelocytes 3.0 Platelet Estimate Increased Sodium Potassium Chloride Carbon Dioxide Anion Gap BUN Creatinine GFR Calculation Glucose POC Glucose Calculated Osmolal ity Calcium Ferritin Cancelled Total Bilirubin AST ALT Alkaline Phosphata se Lactate Dehydrogen ase Cancelled Creatine Kinase Cancelled C-Reactive Protein Cancelled Total Protein Albumin Globulin Levetiracetam 10/29/19 10/29/19 10/26/19 19:39 16:36 05:15 WBC RBC Hgb Hct MCV MCH MCHC RDW Plt Count MPV Lymph % (Auto) [place] % (Auto) Lymph # (Auto) [place] # (Auto) Total Counted Absolute Neutrophi ls Segmented Neutroph ils Abs Segm Neuts (Ma n) Band Neutrophils Abs Band Neuts (Ma n) Lymphocytes (Manua l) Monocytes (Manual) Absolute Monocytes Metamyelocytes Platelet Estimate Sodium Potassium Chloride Carbon Dioxide Anion Gap BUN Creatinine GFR Calculation Glucose POC Glucose 225 217 Calculated Osmolal ity Calcium Ferritin Total Bilirubin AST ALT Alkaline Phosphata se Lactate Dehydrogen ase Creatine Kinase C-Reactive Protein Total Protein Albumin Globulin Levetiracetam 4.2 L Vitals: Last Vital Signs Temp 98.7 F 10/30/19 07:00 Pulse 66 10/30/19 10:00 Resp 20 H 10/30/19 05:00 BP 148/86 10/30/19 10:00 Pulse Ox 95 10/30/19 10:00 Discharge Plan Discharge Patient Disposition: Home Condition: Stable Prescriptions: New Advair Diskus 250-50 mcg/dose Blister With Device 1 puff inhalation BID.RESPIRATORY Qty: 1 RF: 0 levetiracetam 500 mg Tablet 250 mg PO BID Qty: 60 RF: 0 chlorthalidone 25 mg Tablet 25 mg PO DAILY Qty: 30 RF: 0 Vitamin C 500 mg Tablet 500 mg PO BID Qty: 30 RF: 0 zinc gluconate 50 mg Tablet 50 mg PO DAILY Qty: 15 RF: 0 alfuzosin 10 mg Tablet Extended Release 24 Hr 10 mg PO DAILY Qty: 30 RF: 0 Spiriva with HandiHaler 18 mcg Capsule, W/Inhalation Device 18 mcg inhalation DAILY.RESPIRATORY Qty: 14 RF: 0 Eliquis 5 mg Tablet 5 mg PO BID Qty: 28 RF: 0 Cardizem CD 240 mg capsule,extended release 24hr 240 mg PO DAILY Qty: 30 RF: 0 Medrol (David) 4 mg tablets,dose pack See Rx Instructions .ROUTE .COMPLEX Qty: 21 RF: 0 Continued aspirin [Adult Low Dose Aspirin] 81 mg tablet,delayed release (DR/EC) 81 mg PO DAILY RF: 0 Qunol Ultra CoQ10 See Rx Instructions .ROUTE .COMPLEX RF: 0 Vitamin B-12 250 mcg tablet 250 mcg PO DAILY RF: 0 clonidine HCl 0.1 mg tablet 0.1 mg PO BID PRN (Reason: hypertensive emergency) 30 Days Qty: 30 RF: 5 ezetimibe 10 mg tablet 10 mg PO DAILY 30 Days Qty: 30 RF: 5 lisinopril 40 mg tablet 40 mg PO DAILY 30 Days Qty: 30 RF: 5 isosorbide mononitrate 30 mg tablet extended release 24 hr 30 mg PO BID Qty: 60 RF: 5 magnesium oxide See Rx Instructions .ROUTE .COMPLEX RF: 0 nitroglycerin 0.4 mg tablet, sublingual 0.4 mg SUBLINGUAL ONCE PRN (Reason: chest pain) Qty: 1 RF: 3 Discontinued furosemide 20 mg tablet 20 mg PO QAM 30 Days Qty: 30 RF: 5 doxycycline hyclate 100 mg tablet 100 mg PO BID 10 Days Qty: 20 RF: 0 Discharge Orders: Discharge Order (Routine); Ordered 10/30/19 Ordered By: Lisandro Kramer Referrals: Faith Coley MD [Physician] - 1 month Gregoria Schilling FNP-C [Primary Care Provider] - 7-10 days Lamar Cates MD [Physician] - 7-10 days Discharge Diet: Usual diet Discharge Activity: Resume usual activity and Increase activity as tolerated Activity Restrictions/Additional Instructions: Danger signs for return to hospital are if you are feeling more out of breath than usual, confusion, fever more than 101 Fahrenheit not controlled by Tylenol, if you are not able to keep anything down by mouth. New medications would be vitamin C, zinc, and elevation to Spiriva and Advair, Eliquis for next 2 weeks. Lasix has been stopped and chlorthalidone has been started for better blood pressure control. Please follow-up with your poultry hatchery laborer within next 1 week. Please follow-up with Dr. Coley from neurology in 1 month because you had seizure in the hospital. Most likely would need MRI of her brain as an outpatient. Discharge Attestations Time Spent in Discharge Care*: critical care time Specific Discharge Activities: Specific discharge activities: educating patient, educating and/or supporting family/caregiver, discussing with casework specialist/social workers/dc planners, documenting/other paperwork and evaluating patient/reviewing data Status at Discharge: Cognitive status at discharge: cognitively intact, Behavioral status at discharge: cooperative, Functional status at discharge: independent ambulation Overall status at discharge: patient is progressing back to baseline Quality Metrics Clinical Quality Measures During this hospital stay, did patient experience: None Coding Level of Care Code 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
--- NOTE | 2019-11-03 13:33 | PC.SOCIAL ---
Spoke at length with patient and regarding post discharge and COVID diagnosis. Patient did return on Sat to ED due to low bp. Systolic was 90. We discussed to keep a log which is doing and checking 3 times daily. We discussed if systolic drops below 100 and he is symptomatic which includes weak and dizzy then to call ahead of time but should present to ED. Otherwise can monitor him. He is taking in adequate amounts of fluid and eating well. His Lasix has been discontinued. We discussed that adequate fluid intake will help with BP however, if he starts noticing swelling to lower extremities he will need to cut back some on fluids. We discussed importance of doing Acapella and IS as many times as he can. O2 is 95-96 on 2L sitting. He has gone for a walk and O2 dropped to 90 but overall tolerated well. Advised to continue to take walks as tolerated which will over all help with his breathing. We discussed medications in detail and follow up appointments. will call pcp office tomorrow to get televisit set up. He has not experienced seizures since return home. He did have a episode with vision difficulty but resolved quickly. If this returns and does not resolve quickly was advised to return to ED otherwise can discuss with Neurologist on Nov 26 this appt has been scheduled. No seizure activity noted since return home. Discussed should this return and sustain will need to present to ED as well. Advised to call ahead of time if coming to ED for evaluation. indicates BP have been better today. HR 67. We discussed Plasma donation and that information will be sent out to them regarding this. Patient seems interested and may do so once improved. All questions were answered to best of this nurse ability. Provided number in case any further questions or concerns arise.
== END 2019-10-30 15:50 | disposition home or self-care (01) | DRG 177 ==
LOC: ER 20:50 → ICU 22:08
PROVIDERS: Emergency Medicine; Internal Medicine; Admitting Provider Internal Medicine; PCP Nurse Practitioner Family; Visit Provider Student in an Organized Health Care Education/Training Program
DX: U07.1 COVID-19 (principal); J12.89 Other viral pneumonia; J96.01 Acute respiratory failure with hypoxia; R56.9 Unspecified convulsions; I25.10 Atherosclerotic heart disease of native coronary artery without angina pectoris; Z95.5 Presence of coronary angioplasty implant and graft; Z87.891 Personal history of nicotine dependence; I10 Essential (primary) hypertension; M17.12 Unilateral primary osteoarthritis, left knee; R33.9 Retention of urine, unspecified; E86.0 Dehydration; I48.0 Paroxysmal atrial fibrillation; Z79.82 Long term (current) use of aspirin
CPT/HCPCS: 12345; 36415; 36416; 36600; 51702; 70450; 71045; 71250; 71275; 80053; 80177; 80202; 81001; 82550; 82728; 82803; 82962; 83605; 83615; 83735; 83880; 84145; 84146; 84443; 84484; 85007; 85025; 85378; 85384; 86140; 87040; 87070; 87077; 87205; 87426; 87449; 87804; 93005; 93306; 96372; 96375; 99283; J0153; J1100; J1650; J1652; J1815; J1940; J1953; J1956; J2060; J2543; J3370; J3490; J3535; J7040; J7050; J7512; Q9967

== ENCOUNTER 2019-11-01 13:54 | Emergency (ER) | payer MEDICAID, SELFPAY ==
[2019-11-01 14:00] VITALS: BP 128/67; PULSE 80; RESP 20; TEMP 36.8; O2SAT 93
--- NOTE | 2019-11-01 14:03 | XRR_ITS ---
PROCEDURE INFORMATION: Exam: XR Chest, 1 View Exam date and time: 11/01/2019 2:56 PM Age: 59 years old Clinical indication: Condition or disease; Lung condition and disease; Pneumonia; Viral; Prior surgery; Surgery date: 6+ months; Surgery type: Stents; Patient HX: Covid +; Additional info: Dyspnea TECHNIQUE: Imaging protocol: XR of the chest Views: 1 view. COMPARISON: CR XR chest 1V portable [id number] 10/27/2019 7:40 AM FINDINGS: Lungs: Left lower lobe atelectasis is seen. Low lung volumes are present. The lungs are otherwise clear No consolidation. Pleural space: There is elevation of the left hemidiaphragm stable since prior No pleural effusion. No pneumothorax. Heart/Mediastinum: Unremarkable. No cardiomegaly. Bones/joints: Unremarkable. XR/XR chest 1V portable [id number] IMPRESSION: 1. Low lung volumes 2. Elevated left hemidiaphragm 3. Atelectasis left lower lobe 4. Otherwise No acute findings.
--- NOTE | 2019-11-01 14:04 | ECG_ITS ---
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 Measurements Intervals [place] Rate: 75 P: 48 MT: 150 QRS: 54 QRSD: 85 T: 24 QT: 367 QTc: 411 Interpretive Statements SINUS RHYTHM MINIMAL ST DEPRESSION [0.025+ mV ST DEPRESSION] Compared to ECG 10/27/2019 19:49:22 ST (T wave) deviation now present T-wave abnormality no longer present Electronically Signed On 11-03-2019 8:04:22 CDT by Lamar Cates M.D. [id number]
[2019-11-01 14:38] LABS: ABG PCO2 39.8 mmHg (35-45); ABG PH Result 7.42 (7.35-7.45); Arterial Blood Gas Hematocrit 48.3 % (42-52); Blood Gas Allen Test POS; Blood Gas Operator Identificat AMH; Blood Gas Sample Site LR; Blood Gas Sample Type ART; HCO3 ABG 25.5 mmol/L (22-26); Oxygen Device NC
[2019-11-01 14:59] LABS: Basophils % 0.2 %; Eosinophils % 0.1 %; Hematocrit 47.6 % (42.0-52.0); Lymphocytes # 1.1 10^3/uL (0.8-4.8); Lymphocytes % 8.3 %; Mean Corpuscular HGB Conc 33.6 g/dL (30.0-36.0); Mean Corpuscular Hemoglobin 31.1 pg (28.0-34.0); Mean Corpuscular Volume 92.6 fL (80-94); Monocytes # 1.5 10^3/uL (0.2-0.9); Monocytes % 11.2 %; Neutrophils # 10.21 10^3/uL (1.8-7.7); Neutrophils % 77.9 %; Nucleated Red Blood Cells % 0 %; Platelet Count 540 10^3/cmm (130-400); Red Blood Count 5.14 10^6/uL (4.1-5.3); White Blood Count 13.1 10^3/uL (4.0-10.0)
[2019-11-01 15:20] LABS: Alanine Aminotransferase 67 U/L (0-41); Albumin Level 3.8 g/dL (3.5-5.2); Alkaline Phosphatase 50 IU/L (40-130); Anion Gap 15.4 (5-19); Aspartate Amino Transferase 17 U/L (0-40); Blood Urea Nitrogen 33 mg/dL (8-23); C Reactive Protein 0.9 mg/L (0.0-4.9); Calcium 9.2 mg/dL (8.5-10.5); Carbon Dioxide 25 mmol/L (22-29); Chloride 97 mmol/L (98-107); Globulin 2.8 g/dL (1.3-4.6); Glomerular Filtration Rate 61.8 mL/min (90-130); Glucose 139 mg/dL (65-115); Magnesium 2.2 mg/dL (1.7-2.3); Osmolality Calculated 276 mOsm/kg (285-295); Potassium 4.4 mmol/L (3.5-5.1); Sodium 133 mmol/L (136-145); Total Bilirubin 0.6 mg/dL (0.15-1.2); Total Protein 6.6 g/dL (6.6-8.7)
[2019-11-01] MEDS: dexamethasone 10 mg/mL INJ 8 MG IVP (15:20)
--- NOTE | 2019-11-01 15:20 | ED_ITS ---
HPI - General Adult General: Chief complaint: General Medical Stated complaint: COVID POS; LOW BP Time Seen by Provider: 11/01/19 13:56 Source: patient Mode of arrival: ambulatory Limitations: no limitations History of Present Illness: HPI narrative: Mr. Mcmillan is a nice 59-year-old male who comes in complaining of weakness and low blood pressure from home. Patient was recently in the hospital for COVID-19 infection with new onset of elevated heart rate and hypoxia. He states he was discharged home on oxygen. He states he otherwise feels fine except for just feeling a little more tired and fatigued the past couple days. His checked his blood pressure at home and found it to be 90 systolic. Because of this she was concerned he may be becoming ill again and sent him to the hospital. He denies any recurrent fevers, chest pain, shortness of breath, back pain, abdominal pain, urinary symptoms or other acute infectious symptoms. Associated symptoms: Reports dyspnea and malaise; Deny chest pain, confusion, diaphoresis, headache(s), nausea, rash, palpitations, syncope or vomiting Review of Systems Const: Reports: fatigue and malaise; Denies: fever(s), chills, body aches or diaphoresis Eyes: Denies: change in vision, blurry vision, photophobia, eye discomfort, eye discharge or eye redness ENMT: Denies: throat pain, odynophagia, hoarseness, swelling of lips/tongue, ear or mastoid pain, ear discharge, change in hearing or nasal discharge Card: Denies: chest pain, palpitations, irregular heart rhythm, edema, lightheadedness, syncope, pre-syncope, dyspnea on exertion or orthopnea Resp: Reports: dyspnea; Denies: productive cough, non-productive cough, wheezing, hemoptysis or chest congestion GI: Denies: abdominal pain, nausea, vomiting, hematemesis, coffee ground emesis, heartburn, diarrhea, constipation, GI cramping, hematochezia or melena : Denies: flank pain, dysuria, urinary frequency, urinary urgency or hematuria Musc: Denies: neck pain, back pain, extremity pain, extremity swelling, joint pain, joint swelling, joint redness, joint warmth or joint stiffness Skin/Breast: Denies: rash, pruritus, erythema or skin tenderness Neuro: Denies: headache(s), numbness in extremities, weakness in extremities, sensory changes, lack of coordination, difficulty walking, dizziness, vertigo, confusion, Slurred speech present or seizure-like activity Paulo/Lymph: Denies: easy bruising, easy bleeding, petechiae, purpura or enlarged lymph nodes All/Imm: Denies: urticaria, throat swelling, tongue swelling, facial swelling or acute wheezing PFSH ED PFSH: Medical History Accelerated hypertension CAD (coronary artery disease) Osteoarthritis of left knee Surgical History Stented coronary artery Family History Mother Cancer Liver Other CAD (coronary artery disease) Hypertension Parkinson's disease Social History Smoking and tobacco status: former smoker Second hand smoke exposure: No Smoking risk assessment/counseling performed?: No Alcohol intake: never Desire information about alcohol rehabilitation?: No Counseling given: No Desire information about substance/drug rehabilitation?: No Counseling given: No Adopted: No Caregiver/support person: No Lives independently: Yes Household members: spouse Housing: House Marital status: Number of children: 6 service: No Current occupational status: retired History of recent travel: No Current gender identity: Male Physical Exam Const: COMMON NORMALS: no acute distress, patient oriented x3, no limitations, healthy appearing and well nourished GENERAL APPEARANCE: cooperative, well kempt and well developed HENMT: COMMON NORMALS: normocephalic, atraumatic, external ears normal, EAC's normal and Normal external nose present HEAD & SCALP: normal to inspection, normocephalic and atraumatic FACE & SINUS: normal facial exam and face symmetric NOSE: Normal external nose present and Normal nares present EXTERNAL EAR: Yes external ears normal EXTERNAL AUDITORY CANAL: EAC's normal MOUTH: Normal oral and palatal mucosa present, lip normal and tongue normal Eye: COMMON NORMALS: Equal, round and reactive pupils present and conjunctivae normal GENERAL EYE: appearance normal, both eyes and all related structures ALIGNMENT: Yes alignment normal PERIORBITAL: periorbital findings normal EYELID: eyelids normal CONJUNCTIVA: Yes conjunctivae normal SCLERA: sclerae normal PUPIL: Yes Equal, round and reactive pupils present Neck/C-Spine: COMMON NORMALS: full ROM, no lymphadenopathy, supple, no meningeal signs and no JVD GENERAL: Yes normal visual inspection and Yes trachea midline Chest: COMMONS NORMALS: normal inspection of the chest and normal palpation of entire chest wall Resp: COMMON NORMALS: normal respiratory effort, No retractions, No use of accessory muscles and clear to auscultation bilaterally EFFORT & INSPECTION: Yes able to speak in complete sentences and Yes symmetric chest movement AUSCULTATION: clear to auscultation bilaterally, no crackles, no rales, no rh onchi and no wheezes Cardio: COMMON NORMALS: no JVD, regular rate, regular rhythm, S1 normal heart sound present and S2 normal heart sound present RATE: regular rate RHYTHM: regular rhythm HEART SOUNDS: S1 normal heart sound present, S2 normal heart sound present, no click, no gallops, no murmurs, no rubs and abnormal split S2 GI: COMMON NORMALS: Soft to palpation and No hepatosplenomegaly present PALPATION: Yes Soft to palpation, No Tenderness to palpation present (GI), No Guarding due to palpation present (GI), No Rigid due to palpation, Yes No hepatosplenomegaly present, No Hernia present, No Palpable mass present and No Pulsatile mass present : COMMON NORMALS: Yes no CVA tenderness BLADDER/KIDNEY EXAM: Yes no CVA tenderness Back/Pelvis: COMMON NORMALS: no CVA tenderness, thoracic and lumbar spine normal to inspection, no thoracic nor lumbar tenderness and thoraco-lumbar ROM normal Extremity: COMMON NORMALS: normal to inspection, full ROM, capillary refill normal, no joint enlargement, no clubbing, cyanosis or edema and no calf tenderness Neuro: COMMON NORMALS: patient oriented x3, CN's II-XII intact bilaterally, moves all extremities, no focal motor deficits and no sensory deficits noted MENINGEAL SIGNS: Yes no meningeal signs SPEECH: speech normal Psych: COMMON NORMALS: mental status grossly normal, Normal thought process present, cooperative, normal affect, speech normal and activity/motor behavior normal APPEARANCE: Yes well kempt SPEECH: Yes normal speech THOUGHT PROCESS: Normal thought process present Skin: COMMON NORMALS: no rashes or lesions noted, turgor normal, no jaundice, no petechiae and no mottling GENERAL SKIN EXAM: no rashes or lesions noted and turgor normal Course Vital Signs: Vital signs: Vital Signs Temperature 98.3 F 11/01/19 14:00 Pulse Rate 64 11/01/19 16:00 Respiratory Rate 17 11/01/19 16:00 Blood Pressure 111/58 11/01/19 16:00 Pulse Oximetry 94 11/01/19 16:00 MDM - General Adult MDM Narrative: Medical decision making narrative: The case was reviewed with Dr. Kramer. He believes the patient will be stable for discharge. Other than his ferritin level still being elevated patient's white count is improved. His chest x-ray is unremarkable. He is not hypotensive here and his orthostatics are normal. The patient is feeling better after some IV fluids and agrees to follow-up with Dr. Cates as a scheduled telemedicine visit. He lost full with his regular doctor for recheck. He does understand he can return here at any time should his symptoms change or worsen. Lab Data: Attestation: I reviewed the patient's lab results. Labs: Lab Results 11/01/19 11/01/19 11/01/19 Range/Units 13:10 14:25 14:36 WBC (4.0-10.0) 10^3/ uL RBC (4.1-5.3) 10^6/u L Hgb (11.7-16.6) g/dL Hct (42.0-52.0) % MCV (80-94) fL MCH (28.0-34.0) pg MCHC (30.0-36.0) g/dL RDW (12.1-15.1) % Plt Count (130-400) 10^3/c mm MPV (7.4-10.4) fL Neut % (Auto) % Lymph % (Auto) % Creek % (Auto) % Eos % (Auto) % Baso % (Auto) % Neut # (Auto) (1.8-7.7) 10^3/u L Lymph # (Auto) (0.8-4.8) 10^3/u L Creek # (Auto) (0.2-0.9) 10^3/u L Eos # (Auto) (0.0-0.8) 10^3/u L Baso # (Auto) (0.0-0.1) 10^3/u L Nucleated RBC % (a uto) % Nucleated RBCs # /100WBC ESR 8 (0-10) mm/hr PT (12.1-14.9) SECO NDS INR (0.8-1.2) D-Dimer (0-0.59) ug/mIFE U Specimen Type Art Sample Site Lr ABG pH 7.42 (7.35-7.45) ABG pCO2 39.8 (35-45) mmHg ABG pO2 81.0 (80.0-100.0) mmH g ABG HCO3 25.5 (22-26) mmol/L ABG Base Excess 1.0 (-2.0-2.0) mmol/ L Kike Test Pos Hematocrit 48.3 (42-52) % O2 Delivery Device Nc O2 Liters/Min 2.0 % FiO2 28.0 % Specimen Drawn By Havar Vice President Of Engineering ID Amh Sodium (136-145) mmol/L Potassium (3.5-5.1) mmol/L Chloride (98-107) mmol/L Carbon Dioxide (22-29) mmol/L Anion Gap (5-19) BUN (8-23) mg/dL Creatinine (0.7-1.2) mg/dL GFR Calculation (90-130) mL/min Glucose (65-115) mg/dL Calculated Osmolal ity (285-295) mOsm/k g Lactic Acid (0.5-2.2) mmol/L Calcium (8.5-10.5) mg/dL Magnesium (1.7-2.3) mg/dL Ferritin (30-400) ng/mL Total Bilirubin (0.15-1.2) mg/dL AST (0-40) U/L ALT (0-41) U/L Alkaline Phosphata se (40-130) IU/L Troponin T Baselin e (0-15) ng/L C-Reactive Protein (0.0-4.9) mg/L Total Protein (6.6-8.7) g/dL Albumin (3.5-5.2) g/dL Globulin (1.3-4.6) g/dL Urine Color (Yellow) Urine Appearance (CLEAR) Urine pH (5-7) Ur Specific Gravit y (1.005-1.030) Urine Protein (Negative) Urine Glucose (UA) (Normal) Urine Ketones (Negative) Urine Blood (Negative) Urine Nitrate (Negative) Urine Bilirubin (NEGATIVE) Urine Urobilinogen (Negative) mg/dL Ur Leukocyte Altagracia ase (Negative) Urine RBC (0-2) /hpf Urine WBC (0-5) /hpf Ur Squamous Epith Cells (0-5) Ur Transition Epit h Cell /hpf Amorphous Sediment Urine Bacteria (NONE) Hyaline Casts Urine Mucus Influenza Type A A g Negative (Negative) Influenza Type B A g Negative (Negative) 11/01/19 11/01/19 11/01/19 Range/Units 14:36 14:36 14:36 WBC 13.1 H (4.0-10.0) 10^3/ uL RBC 5.14 (4.1-5.3) 10^6/u L Hgb 16.0 (11.7-16.6) g/dL Hct 47.6 (42.0-52.0) % MCV 92.6 (80-94) fL MCH 31.1 (28.0-34.0) pg MCHC 33.6 (30.0-36.0) g/dL RDW 12.0 L (12.1-15.1) % Plt Count 540 H (130-400) 10^3/c mm MPV 10.0 (7.4-10.4) fL Neut % (Auto) 77.9 % Lymph % (Auto) 8.3 % Creek % (Auto) 11.2 % Eos % (Auto) 0.1 % Baso % (Auto) 0.2 % Neut # (Auto) 10.21 H (1.8-7.7) 10^3/u L Lymph # (Auto) 1.1 (0.8-4.8) 10^3/u L Creek # (Auto) 1.5 H (0.2-0.9) 10^3/u L Eos # (Auto) 0.0 (0.0-0.8) 10^3/u L Baso # (Auto) 0.0 (0.0-0.1) 10^3/u L Nucleated RBC % (a uto) 0 % Nucleated RBCs # 0.0 /100WBC ESR (0-10) mm/hr PT 13.50 (12.1-14.9) SECO NDS INR 1.00 (0.8-1.2) D-Dimer 0.40 (0-0.59) ug/mIFE U Specimen Type Sample Site ABG pH (7.35-7.45) ABG pCO2 (35-45) mmHg ABG pO2 (80.0-100.0) mmH g ABG HCO3 (22-26) mmol/L ABG Base Excess (-2.0-2.0) mmol/ L Kike Test Hematocrit (42-52) % O2 Delivery Device O2 Liters/Min % FiO2 % Specimen Drawn By Vice President Of Engineering ID Sodium 133 L (136-145) mmol/L Potassium 4.4 (3.5-5.1) mmol/L Chloride 97 L (98-107) mmol/L Carbon Dioxide 25 (22-29) mmol/L Anion Gap 15.4 (5-19) BUN 33 H (8-23) mg/dL Creatinine 1.2 (0.7-1.2) mg/dL GFR Calculation 61.8 L (90-130) mL/min Glucose 139 H (65-115) mg/dL Calculated Osmolal ity 276 L (285-295) mOsm/k g Lactic Acid (0.5-2.2) mmol/L Calcium 9.2 (8.5-10.5) mg/dL Magnesium 2.2 (1.7-2.3) mg/dL Ferritin 1714 H (30-400) ng/mL Total Bilirubin 0.6 (0.15-1.2) mg/dL AST 17 (0-40) U/L ALT 67 H (0-41) U/L Alkaline Phosphata se 50 (40-130) IU/L Troponin T Baselin e (0-15) ng/L C-Reactive Protein 0.9 (0.0-4.9) mg/L Total Protein 6.6 (6.6-8.7) g/dL Albumin 3.8 (3.5-5.2) g/dL Globulin 2.8 (1.3-4.6) g/dL Urine Color (Yellow) Urine Appearance (CLEAR) Urine pH (5-7) Ur Specific Gravit y (1.005-1.030) Urine Protein (Negative) Urine Glucose (UA) (Normal) Urine Ketones (Negative) Urine Blood (Negative) Urine Nitrate (Negative) Urine Bilirubin (NEGATIVE) Urine Urobilinogen (Negative) mg/dL Ur Leukocyte Altagracia ase (Negative) Urine RBC (0-2) /hpf Urine WBC (0-5) /hpf Ur Squamous Epith Cells (0-5) Ur Transition Epit h Cell /hpf Amorphous Sediment Urine Bacteria (NONE) Hyaline Casts Urine Mucus Influenza Type A A g (Negative) Influenza Type B A g (Negative) 11/01/19 11/01/19 11/01/19 Range/Units 14:36 14:36 15:30 WBC (4.0-10.0) 10^3/ uL RBC (4.1-5.3) 10^6/u L Hgb (11.7-16.6) g/dL Hct (42.0-52.0) % MCV (80-94) fL MCH (28.0-34.0) pg MCHC (30.0-36.0) g/dL RDW (12.1-15.1) % Plt Count (130-400) 10^3/c mm MPV (7.4-10.4) fL Neut % (Auto) % Lymph % (Auto) % Creek % (Auto) % Eos % (Auto) % Baso % (Auto) % Neut # (Auto) (1.8-7.7) 10^3/u L Lymph # (Auto) (0.8-4.8) 10^3/u L Creek # (Auto) (0.2-0.9) 10^3/u L Eos # (Auto) (0.0-0.8) 10^3/u L Baso # (Auto) (0.0-0.1) 10^3/u L Nucleated RBC % (a uto) % Nucleated RBCs # /100WBC ESR (0-10) mm/hr PT (12.1-14.9) SECO NDS INR (0.8-1.2) D-Dimer (0-0.59) ug/mIFE U Specimen Type Sample Site ABG pH (7.35-7.45) ABG pCO2 (35-45) mmHg ABG pO2 (80.0-100.0) mmH g ABG HCO3 (22-26) mmol/L ABG Base Excess (-2.0-2.0) mmol/ L Kike Test Hematocrit (42-52) % O2 Delivery Device O2 Liters/Min % FiO2 % Specimen Drawn By Vice President Of Engineering ID Sodium (136-145) mmol/L Potassium (3.5-5.1) mmol/L Chloride (98-107) mmol/L Carbon Dioxide (22-29) mmol/L Anion Gap (5-19) BUN (8-23) mg/dL Creatinine (0.7-1.2) mg/dL GFR Calculation (90-130) mL/min Glucose (65-115) mg/dL Calculated Osmolal ity (285-295) mOsm/k g Lactic Acid 1.9 (0.5-2.2) mmol/L Calcium (8.5-10.5) mg/dL Magnesium (1.7-2.3) mg/dL Ferritin (30-400) ng/mL Total Bilirubin (0.15-1.2) mg/dL AST (0-40) U/L ALT (0-41) U/L Alkaline Phosphata se (40-130) IU/L Troponin T Baselin e 16 H (0-15) ng/L C-Reactive Protein (0.0-4.9) mg/L Total Protein (6.6-8.7) g/dL Albumin (3.5-5.2) g/dL Globulin (1.3-4.6) g/dL Urine Color Dark yellow (Yellow) Urine Appearance Clear (CLEAR) Urine pH 6 (5-7) Ur Specific Gravit y 1.015 (1.005-1.030) Urine Protein Trace (Negative) Urine Glucose (UA) Norm (Normal) Urine Ketones Negative (Negative) Urine Blood Neg (Negative) Urine Nitrate Negative (Negative) Urine Bilirubin Neg (NEGATIVE) Urine Urobilinogen Norm (Negative) mg/dL Ur Leukocyte Altagracia ase Negative (Negative) Urine RBC None (0-2) /hpf Urine WBC 5-10 H (0-5) /hpf Ur Squamous Epith Cells None (0-5) Ur Transition Epit h Cell 0-4 /hpf Amorphous Sediment Not Reportable Urine Bacteria Trace (NONE) Hyaline Casts 25-40 H Urine Mucus 1+ Influenza Type A A g (Negative) Influenza Type B A g (Negative) Imaging Data^: CXR: Attestation: I personally reviewed and interpreted this imaging study as follows: My impression: Mild basilar infiltrates, unchanged from previous. EKG Data^: EKG 1: Attestation: I personally reviewed and interpreted this EKG as follows: EKG interpretation date: 11/01/19 EKG interpretation time: 14:26 Interpretation: Normal sinus rhythm at 75 beats a minute, normal axis, no blocks, normal intervals, nonspecific ST and T wave changes. Computer generated interpretation: Chest X-Ray 11/01/19 14:03 IMPRESSION: 1. Low lung volumes 2. Elevated left hemidiaphragm 3. Atelectasis left lower lobe 4. Otherwise No acute findings. Discharge Plan Discharge Patient Disposition: Home Clinical Impression: COVID-19, Dehydration Condition: Stable Prescriptions: No Action aspirin [Adult Low Dose Aspirin] 81 mg tablet,delayed release (DR/EC) 81 mg PO DAILY RF: 0 Qunol Ultra CoQ10 See Rx Instructions .ROUTE .COMPLEX RF: 0 Vitamin B-12 250 mcg tablet 250 mcg PO DAILY RF: 0 clonidine HCl 0.1 mg tablet 0.1 mg PO BID PRN (Reason: hypertensive emergency) 30 Days Qty: 30 RF: 5 ezetimibe 10 mg tablet 10 mg PO DAILY 30 Days Qty: 30 RF: 5 lisinopril 40 mg tablet 40 mg PO DAILY 30 Days Qty: 30 RF: 5 isosorbide mononitrate 30 mg tablet extended release 24 hr 30 mg PO BID Qty: 60 RF: 5 magnesium oxide See Rx Instructions .ROUTE .COMPLEX RF: 0 nitroglycerin 0.4 mg tablet, sublingual 0.4 mg SUBLINGUAL ONCE PRN (Reason: chest pain) Qty: 1 RF: 3 Advair Diskus 250-50 mcg/dose Blister With Device 1 puff inhalation BID.RESPIRATORY Qty: 1 RF: 0 levetiracetam 500 mg Tablet 250 mg PO BID Qty: 60 RF: 0 chlorthalidone 25 mg Tablet 25 mg PO DAILY Qty: 30 RF: 0 Vitamin C 500 mg Tablet 500 mg PO BID Qty: 30 RF: 0 zinc gluconate 50 mg Tablet 50 mg PO DAILY Qty: 15 RF: 0 alfuzosin 10 mg Tablet Extended Release 24 Hr 10 mg PO DAILY Qty: 30 RF: 0 Spiriva with HandiHaler 18 mcg Capsule, W/Inhalation Device 18 mcg inhalation DAILY.RESPIRATORY Qty: 14 RF: 0 Eliquis 5 mg Tablet 5 mg PO BID Qty: 28 RF: 0 Cardizem CD 240 mg capsule,extended release 24hr 240 mg PO DAILY Qty: 30 RF: 0 Medrol (David) 4 mg tablets,dose pack See Rx Instructions .ROUTE .COMPLEX Qty: 21 RF: 0 Discharge Orders: Discharge Order (Routine); Ordered 11/01/19 Ordered By: Miya Thapa Referrals: Gregoria Schilling FNP-C [Primary Care Provider] - 1-3 days Discharge Diet: Usual diet Discharge Activity: Increase activity as tolerated Patient Instructions: Dehydration (ED) Activity Restrictions/Additional Instructions: Please return to the ER immediately for any of the signs or symptoms listed on your discharge instruction sheets, worsening/changing of your symptoms, you are not getting better as quickly as expected, or for ANY other cause or concerns. Please return the ER for another low blood pressure, fever, vomiting, worsening of your symptoms or for any other cause for concern. Coding Level of Care Code ED Enterprise Systems Manager for Андрей Fwemily Exam Comprehensive
[2019-11-01 15:22] LABS: Troponin(5th) Baseline 16 ng/L (0-15)
[2019-11-01 15:23] LABS: Lactic Sepsis W/Reflex 1.9 mmol/L (0.5-2.2)
[2019-11-01 15:32] VITALS: BP 110/68; PULSE 70; RESP 16
[2019-11-01 15:33] VITALS: BP 115/65; PULSE 70
[2019-11-01 15:34] VITALS: BP 101/62; PULSE 71
[2019-11-01] MEDS: sodium chloride 0.9% 1,000 ML 100 ML IV (15:35)
[2019-11-01 15:38] LABS: Ferritin 1714 ng/mL (30-400)
[2019-11-01 15:41] LABS: Erythrocyte Sedimentation Rate 8 mm/hr (0-10)
[2019-11-01 16:00] VITALS: BP 111/58; PULSE 64; RESP 17; O2SAT 94
[2019-11-01 16:06] LABS: Influenza A by IFA Negative (Negative); Influenza B by IFA Negative (Negative)
[2019-11-01 16:39] LABS: Add Urine Microscopic? YES; Bacteria Urine TRACE; Bilirubin Urine Neg (NEGATIVE); Blood Urine Neg (Negative); Glucose Urine UA Norm (Normal); Ketones Urine Negative (Negative); Leukocyte Esterase Urine Negative (Negative); Mucus Urine 1+; Nitrate Urine Negative (Negative); Protein Urine Trace (Negative); Specific Gravity, Urine 1.015 (1.005-1.030); Transitional Epi Cells Urine 0-4 /hpf; Urine Appearance Clear (CLEAR); Urine Color Dark Yellow (Yellow); Urobilinogen Urine Norm (Negative); pH Urine 6 (5-7)
[2019-11-01 16:40] LABS: Add Urine Culture? No; Hyaline Casts Urine 25-40
[2019-11-01 16:55] VITALS: BP 126/73; PULSE 74; RESP 17; TEMP 36.5; O2SAT 93
[2019-11-01 17:13] LABS: Troponin 5 2HR 14.98 ng/L (0-15)
[2019-11-01 17:34] LABS: Troponin 5 2HR Delta -1.02 ABS# (0-10)
== END 2019-11-01 16:55 | disposition home or self-care (01) ==
PROVIDERS: Emergency Provider Emergency Medicine; PCP Nurse Practitioner Family
DX: U07.1 COVID-19 (principal); E86.0 Dehydration; Z79.82 Long term (current) use of aspirin; Z79.01 Long term (current) use of anticoagulants; I25.10 Atherosclerotic heart disease of native coronary artery without angina pectoris; I10 Essential (primary) hypertension; Z87.891 Personal history of nicotine dependence
CPT/HCPCS: 12345; 36415; 36600; 71045; 80053; 81001; 82728; 82803; 83605; 83735; 84484; 85025; 85378; 85610; 85651; 86140; 87040; 87804; 93005; 96361; 96374; 96375; 99283; 99284; J1100; J7030

== ENCOUNTER → 2019-11-27 07:49 | Outpatient (BNVA) | payer MEDICAID, SELFPAY | PROVIDERS: PCP Nurse Practitioner Family; Visit Provider Specialist | DX: G40.219 Localization-related (focal) (partial) symptomatic epilepsy and epileptic syndromes with complex partial seizures, intractable, without status epilepticus (principal); G92 Toxic encephalopathy; U07.1 COVID-19 | CPT/HCPCS: 99205 ==

== ENCOUNTER → 2019-12-11 10:50 | Outpatient (BNVA) | payer MEDICAID, SELFPAY | PROVIDERS: Family Provider Nurse Practitioner Family; PCP Nurse Practitioner Family; Visit Provider Internal Medicine Cardiovascular Disease | DX: I25.118 Atherosclerotic heart disease of native coronary artery with other forms of angina pectoris (principal); I10 Essential (primary) hypertension; I48.91 Unspecified atrial fibrillation; R06.02 Shortness of breath; E78.2 Mixed hyperlipidemia | CPT/HCPCS: 80053; 83880; 85025 ==

== ENCOUNTER → 2019-12-14 10:25 | Outpatient (BNVA) | payer OTHER, SELFPAY | PROVIDERS: Family Provider Nurse Practitioner Family; PCP Nurse Practitioner Family; Visit Provider Internal Medicine Critical Care Medicine | DX: Z11.59 Encounter for screening for other viral diseases (principal); J96.11 Chronic respiratory failure with hypoxia | CPT/HCPCS: 87635 ==

== ENCOUNTER 2019-12-18 12:40 | Outpatient (CLI) | payer SELFPAY ==
--- NOTE | 2019-12-18 14:30 | PFTS_ITS ---
Date of Study:12/18/19 Date of Dictation: 12/18/2019 MECHANICS: Forced vital capacity (FVC) is normal Forced expiratory volume in one second (FEV1) is normal FEV1/FVC is normal No postbronchodilator spirometry performed FLOW VOLUME LOOP: Normal . LUNG VOLUMES: Total lung capacity (TLC) is mildly reduced. Residual volume (RV) is normal DIFFUSING CAPACITY FOR CARBON MONOXIDE: Normal . INTERPRETATION: Overall pulmonary function tests normal except mild reduction in TLC. Correlate clinically. MTDD
== END 2019-12-18 12:41 | disposition home or self-care (01) ==
LOC: RT 12:42
PROVIDERS: PCP Nurse Practitioner Family; Visit Provider Internal Medicine Critical Care Medicine
DX: U07.1 COVID-19 (principal)
CPT/HCPCS: 94010; 94726; 94729

== ENCOUNTER → 2020-01-27 12:47 | Outpatient (BNVA) | payer SELFPAY | PROVIDERS: PCP Nurse Practitioner Family; Referring Provider Specialist; Visit Provider Specialist | DX: R56.9 Unspecified convulsions (principal); Z87.891 Personal history of nicotine dependence | CPT/HCPCS: 95816 ==

== ENCOUNTER 2020-02-05 07:46 | Outpatient (CLI) | payer SELFPAY ==
--- NOTE | 2020-02-05 07:56 | MR_ITS ---
WS: [id number] MRI BRAIN WITHOUT CONTRAST HISTORY: EPILEPSY unspecified NOT INTRACTABLE W/O STATUS EPILEPTICUS COMPARISON: Noncontrast head CT 10/22/2019 TECHNIQUE: Diffusion imaging, multiplanar T1, T2 and FLAIR imaging obtained. No evidence for acute infarct or hemorrhage. Ibanez-white matter differentiation is normal. There are a few scattered FLAIR and T2 signal hyperintensities in the subcortical white matter. No pr ior large territory infarct or lacunar. Mild volume loss and atrophy. Symmetric appearance of the tem poral horns and hippocampal formations. Ventricles and extra-axial spaces are normal. No inferior displacement of cerebellar tonsils. The sella turcica and pituitary gland are unremarkabl e. Posterior fossa is also unremarkable. Dural venous sinuses and [place] demonstrate no abnormality on this unenhanced studies. Paranasal sinuses: Clear. Mastoid air cells: Normal. Calvarium and scalp: Intact. MR/MR head wo con* [id number] IMPRESSION: 1. No acute infarct or prior large territory infarct. 2. Mild atrophy and mild microvascular ischemic disease.
== END 2020-02-05 07:47 | disposition home or self-care (01) ==
LOC: RADSHAW 07:50
PROVIDERS: PCP Nurse Practitioner Family; Visit Provider Specialist
DX: G40.909 Epilepsy, unspecified, not intractable, without status epilepticus (principal); G31.9 Degenerative disease of nervous system, unspecified; I67.82 Cerebral ischemia
CPT/HCPCS: 70551

== ENCOUNTER 2020-02-11 10:06 | Outpatient (CLI) | payer MEDICAID, SELFPAY | END 2020-02-11 10:07 | disposition home or self-care (01) | PROVIDERS: PCP Nurse Practitioner Family; Visit Provider Internal Medicine Critical Care Medicine | DX: J96.11 Chronic respiratory failure with hypoxia (principal) | CPT/HCPCS: 94618 ==

== ENCOUNTER → 2020-03-08 09:09 | Outpatient (BNVA) | payer MEDICAID, SELFPAY | PROVIDERS: PCP Nurse Practitioner Family; Visit Provider Nurse Practitioner Family | DX: I10 Essential (primary) hypertension (principal); I48.91 Unspecified atrial fibrillation; R00.0 Tachycardia, unspecified; Z86.19 Personal history of other infectious and parasitic diseases | CPT/HCPCS: 80053; 80061; 84443; 85025 ==

== ENCOUNTER 2020-03-24 15:28 | Outpatient (CLI) | payer MEDICAID, SELFPAY ==
--- NOTE | 2020-03-24 15:45 | USCV_ITS ---
Valentin Lawton Age: 59 Gender: M : 1960 Exam Date: 03/24/2020 16:08 Ordering Phys: Lamar Cates MD ([email or web address]) Technologist: Miko Jorge [place] [facility] [place]: CHEST PAIN BP: 132 / 75 HR: 69 Rhythm: Sinus Technical Quality: Adequate MEASUREMENTS (Male / Female) Normal Values 2D ECHO LV Ejection Fraction MOD 2C 61.2 % LV Ejection Fraction 2C AL 63.1 % LA Diameter 4.0 cm M-MODE LV Diastolic Diameter MM 5.5 cm 4.2 - 5.9 / 3.9 - 5.3 cm LV Systolic Diameter MM 3.7 cm LV Ejection Fraction MM Teich 61.3 % IVS Diastolic Thickness MM 1.1 cm 0.6 - 1.0 / 0.6 - 0.9 cm IVS Systolic Thickness MM 1.9 cm LVPW Diastolic Thickness MM 1.6 cm 0.6 - 1.0 / 0.6 - 0.9 cm LVPW Systolic Thickness MM 1.9 cm RV Diastolic Diameter MM 1.2 cm Aortic Annulus Diameter 3.4 cm LA Ao Ratio MM 1.2 MV E Point Septal Separation 1.4 cm DOPPLER AV Peak Velocity 179.0 cm/s LVOT Peak Velocity 108.0 cm/s MV Area PHT 5.0 cm squared Mitral E to A Ratio 0.7 MV E' Velocity 48.5 cm/s Mitral E to MV E' Ratio 12.1 Mitral E to LV E' Lateral Ratio 10.6 Mitral E to LV E' Septal Ratio 14.2 TR Peak Velocity 160.7 cm/s TR Peak Gradient 10.3 mmHg TV Peak E Velocity 110.0 cm/s Right Atrial Pressure 3.0 mmHg Pulmonary Artery Systolic Pressu 13.3 mmHg FINDINGS Left Ventricle Normal left ventricular size, systolic function with no diagnostic regional wall motion abnormalities. Left ventricular ejection fraction is estimated at 65 %. Grade I diastolic dysfunction (abnormal relaxation filling pattern), normal to mildly elevated filling pressures. Right Ventricle Probably normal right ventricular size and systolic function. Right ventricular systolic pressure 13.3 mmHg. Right Atrium Right atrium not well visualized. Left Atrium Left atrium not well visualized. Mitral Valve Mitral valve not well visualized. Aortic Valve Aortic valve not well visualized. No aortic valve stenosis. Tricuspid Valve Tricuspid valve not well visualized. Pulmonic Valve Pulmonic valve not well visualized. Pericardium No pericardial effusion. Aorta Aorta not well visualized. CONCLUSIONS 1. This is a technically difficult study. 2. Normal left ventricular size, systolic function with no diagnostic regional wall motion abnormalities. Left ventricular ejection fraction is estimated at 65 %. Grade I diastolic dysfunction (abnormal relaxation filling pattern), normal to mildly elevated filling pressures. 3. Probably normal right ventricular size and systolic function. 4. Normal pulmonary artery pressure. 5. There may not have been any significant change when compared to study report dated 10/25/2019. Lamar Cates MD (Electronically Signed) Final Date: 25 March 2020 05:44 S
[2020-03-24] MEDS: perflutren protein-a microsphr 0.22 mg/mL SDV 3 mL IV (16:09)
== END 2020-03-24 15:29 | disposition home or self-care (01) ==
LOC: RAD 15:37
PROVIDERS: PCP Nurse Practitioner Family; Visit Provider Internal Medicine Cardiovascular Disease
DX: R00.0 Tachycardia, unspecified (principal); I48.91 Unspecified atrial fibrillation; R07.9 Chest pain, unspecified
CPT/HCPCS: C8929

== ENCOUNTER → 2020-04-19 09:39 | Outpatient (BNVA) | payer MEDICAID, SELFPAY | PROVIDERS: PCP Nurse Practitioner Family; Visit Provider Internal Medicine | DX: I25.118 Atherosclerotic heart disease of native coronary artery with other forms of angina pectoris (principal); R00.0 Tachycardia, unspecified; I48.92 Unspecified atrial flutter | CPT/HCPCS: 80048; 80061; 84443 ==

== ENCOUNTER → 2020-06-22 10:12 | Outpatient (BNVA) | payer MEDICAID, SELFPAY | PROVIDERS: PCP Nurse Practitioner Family; Visit Provider Specialist | DX: G40.219 Localization-related (focal) (partial) symptomatic epilepsy and epileptic syndromes with complex partial seizures, intractable, without status epilepticus (principal); I48.91 Unspecified atrial fibrillation; Z87.891 Personal history of nicotine dependence; Z86.16 Personal history of COVID-19 | CPT/HCPCS: 99214 ==

== ENCOUNTER → 2020-07-07 13:40 | Outpatient (BNVA) | payer MEDICAID, SELFPAY | PROVIDERS: PCP Nurse Practitioner Family; Visit Provider Specialist | DX: G40.219 Localization-related (focal) (partial) symptomatic epilepsy and epileptic syndromes with complex partial seizures, intractable, without status epilepticus (principal); I48.91 Unspecified atrial fibrillation; I95.1 Orthostatic hypotension; G43.711 Chronic migraine without aura, intractable, with status migrainosus; Z87.891 Personal history of nicotine dependence | CPT/HCPCS: 99215 ==

== ENCOUNTER 2020-07-15 13:52 | Outpatient (CLI) | payer MEDICAID, SELFPAY ==
--- NOTE | 2020-07-15 14:15 | USCV_ITS ---
Valentin Lawton Age: 59 Gender: M : 1960 Exam Date: 07/15/2020 14:05 Ordering Phys: Faith Coley MD Technologist: MARIBETH Exam Location: [facility] [place] Indication: TIA Risk Factors: Previous Vascular Surgery: Right Brachial BP: / Left Brachial BP: / Right Left Velocity (cm/s) Spectral Plaque Velocity (cm/s) Spectral Plaque Syst/Diast Broadening Syst/Diast Broadening 94.80/ 19.80 Prox CCA 72.80 / 19.20 75.00/ 14.30 Mid CCA 63.60 / 17.60 61.70/ 22.10 Distal CCA 59.00 / 18.40 45.20/ 19.90 Prox ICA 35.30 / 18.40 49.70/ 18.90 Mid ICA 45.20 / 22.20 45.90/ 16.70 Distal ICA 49.80 / 23.80 80.50 ECA 66.70 0.66 ICA/CCA 0.78 Antegrade Vertebral Antegrade 41.60/ 17.80 cm/s 35.30/ 13.80 cm/s Tri Subclavian Tri 58.90 83.50 CONCLUSIONS Left ICA stenosis <50%. Right ICA stenosis <50%. Normal antegrade Doppler flow noted in the right vertebral artery. Normal antegrade Doppler flow noted in the left vertebral artery. Carroll Maldonado MD (Electronically Signed) Final Date: 15 Jul 2020 16:25 S
== END 2020-07-15 13:53 | disposition home or self-care (01) ==
LOC: US 13:53
PROVIDERS: PCP Nurse Practitioner Family; Visit Provider Specialist
DX: G45.9 Transient cerebral ischemic attack, unspecified (principal); I48.91 Unspecified atrial fibrillation
CPT/HCPCS: 93880

== ENCOUNTER → 2020-08-02 08:57 | Outpatient (BNVA) | payer MEDICAID, SELFPAY | PROVIDERS: PCP Nurse Practitioner Family; Visit Provider Nurse Practitioner Family | DX: I10 Essential (primary) hypertension (principal); I48.91 Unspecified atrial fibrillation; J96.11 Chronic respiratory failure with hypoxia; Z86.19 Personal history of other infectious and parasitic diseases; E78.5 Hyperlipidemia, unspecified | CPT/HCPCS: 80053; 80061; 84443; 85025 ==

== ENCOUNTER → 2020-08-10 09:38 | Outpatient (BNVA) | payer MEDICAID, SELFPAY | PROVIDERS: PCP Nurse Practitioner Family; Visit Provider Specialist | DX: G40.219 Localization-related (focal) (partial) symptomatic epilepsy and epileptic syndromes with complex partial seizures, intractable, without status epilepticus (principal); Z87.891 Personal history of nicotine dependence | CPT/HCPCS: 95816 ==

== ENCOUNTER → 2020-09-06 14:44 | Outpatient (BNVA) | payer MEDICAID, SELFPAY | PROVIDERS: PCP Nurse Practitioner Family; Visit Provider Specialist | DX: G43.711 Chronic migraine without aura, intractable, with status migrainosus (principal); G31.84 Mild cognitive impairment of uncertain or unknown etiology; Z87.891 Personal history of nicotine dependence | CPT/HCPCS: 99214 ==

== ENCOUNTER → 2020-12-22 08:15 | Outpatient (BNVA) | payer MEDICAID, SELFPAY | PROVIDERS: PCP Nurse Practitioner Family; Visit Provider Specialist | DX: G43.711 Chronic migraine without aura, intractable, with status migrainosus (principal); G31.84 Mild cognitive impairment of uncertain or unknown etiology; U09.9 Post COVID-19 condition, unspecified; M15.9 Polyosteoarthritis, unspecified | CPT/HCPCS: 99214 ==

== ENCOUNTER → 2021-01-31 09:00 | Outpatient (BNVA) | payer MEDICAID, SELFPAY | PROVIDERS: PCP Nurse Practitioner Family; Visit Provider Internal Medicine | DX: Z51.81 Encounter for therapeutic drug level monitoring (principal); Z79.899 Other long term (current) drug therapy | CPT/HCPCS: 80048 ==

== ENCOUNTER → 2021-05-16 09:02 | Outpatient (BNVA) | payer MEDICAID, SELFPAY | PROVIDERS: PCP Nurse Practitioner Family; Visit Provider Nurse Practitioner Family | DX: E78.2 Mixed hyperlipidemia (principal); I10 Essential (primary) hypertension; I48.91 Unspecified atrial fibrillation; J96.11 Chronic respiratory failure with hypoxia; Z86.19 Personal history of other infectious and parasitic diseases | CPT/HCPCS: 80053; 80061; 84443; 85025 ==

== ENCOUNTER → 2021-05-31 09:58 | Outpatient (BNVA) | payer MEDICAID, SELFPAY | PROVIDERS: PCP Nurse Practitioner Family; Visit Provider Internal Medicine | DX: I48.91 Unspecified atrial fibrillation (principal) | CPT/HCPCS: 80048; 83735 ==

== ENCOUNTER → 2021-06-06 09:45 | Outpatient (BNVA) | payer MEDICAID, SELFPAY | PROVIDERS: PCP Nurse Practitioner Family; Visit Provider Internal Medicine Critical Care Medicine | DX: J45.909 Unspecified asthma, uncomplicated (principal); G47.10 Hypersomnia, unspecified; I48.91 Unspecified atrial fibrillation; I25.10 Atherosclerotic heart disease of native coronary artery without angina pectoris; I10 Essential (primary) hypertension; Z87.891 Personal history of nicotine dependence; Z86.16 Personal history of COVID-19 | CPT/HCPCS: 99214 ==

== ENCOUNTER 2021-07-05 13:00 | Outpatient (CLI) | payer MEDICAID, SELFPAY | END 2021-07-05 13:01 | disposition home or self-care (01) | LOC: SLEEP 07-06 16:10 | PROVIDERS: PCP Nurse Practitioner Family; Visit Provider Internal Medicine Critical Care Medicine | DX: G47.33 Obstructive sleep apnea (adult) (pediatric) (principal); G47.10 Hypersomnia, unspecified; G47.36 Sleep related hypoventilation in conditions classified elsewhere | CPT/HCPCS: G0399 ==

== ENCOUNTER 2021-09-14 20:00 | Outpatient (CLI) | payer MEDICAID, SELFPAY | END 2021-09-14 20:01 | disposition home or self-care (01) | PROVIDERS: PCP Nurse Practitioner Family; Visit Provider Internal Medicine Critical Care Medicine | DX: G47.30 Sleep apnea, unspecified (principal) | CPT/HCPCS: 95811 ==

== ENCOUNTER → 2021-11-07 09:32 | Outpatient (BNVA) | payer MEDICAID, SELFPAY | PROVIDERS: PCP Nurse Practitioner Family; Visit Provider Nurse Practitioner Family | DX: E78.2 Mixed hyperlipidemia (principal); I10 Essential (primary) hypertension; J96.11 Chronic respiratory failure with hypoxia; I48.91 Unspecified atrial fibrillation; Z86.19 Personal history of other infectious and parasitic diseases | CPT/HCPCS: 80053; 80061; 84443; 85025 ==

== ENCOUNTER → 2021-12-05 08:16 | Outpatient (BNVA) | payer MEDICAID, SELFPAY | PROVIDERS: PCP Nurse Practitioner Family; Visit Provider Internal Medicine Critical Care Medicine | DX: J45.909 Unspecified asthma, uncomplicated (principal); I48.91 Unspecified atrial fibrillation; G47.33 Obstructive sleep apnea (adult) (pediatric); Z86.16 Personal history of COVID-19; Z87.891 Personal history of nicotine dependence; Z79.01 Long term (current) use of anticoagulants; E66.3 Overweight; Z68.37 Body mass index [BMI] 37.0-37.9, adult | CPT/HCPCS: 99214 ==

== ENCOUNTER → 2022-01-25 07:51 | Outpatient (BNVA) | payer MEDICAID, SELFPAY | PROVIDERS: PCP Nurse Practitioner Family; Visit Provider Specialist | DX: G43.711 Chronic migraine without aura, intractable, with status migrainosus (principal); R41.89 Other symptoms and signs involving cognitive functions and awareness; Z86.16 Personal history of COVID-19; M17.9 Osteoarthritis of knee, unspecified; H91.90 Unspecified hearing loss, unspecified ear | CPT/HCPCS: 99214 ==

== ENCOUNTER → 2022-01-26 11:01 | Outpatient (BNVA) | payer MEDICAID, SELFPAY | PROVIDERS: PCP Nurse Practitioner Family; Referring Provider Specialist; Visit Provider Nurse Practitioner Family | DX: M17.0 Bilateral primary osteoarthritis of knee (principal) | CPT/HCPCS: 20610; 73560; 73565; 99204; J1100; J2795; J3301 ==

== ENCOUNTER → 2022-04-10 11:13 | Outpatient (BNVA) | payer MEDICARE, MEDICAID, SELFPAY | PROVIDERS: PCP Nurse Practitioner Family; Visit Provider Nurse Practitioner Family | DX: L98.9 Disorder of the skin and subcutaneous tissue, unspecified (principal); E78.2 Mixed hyperlipidemia; G47.33 Obstructive sleep apnea (adult) (pediatric); I10 Essential (primary) hypertension | CPT/HCPCS: 80053; 80061; 84443; 85025 ==

== ENCOUNTER → 2022-06-01 11:01 | Outpatient (BNVA) | payer MEDICARE, MEDICAID, SELFPAY | PROVIDERS: PCP Nurse Practitioner Family; Visit Provider Nurse Practitioner Family | DX: M17.12 Unilateral primary osteoarthritis, left knee (principal) | CPT/HCPCS: 99213 ==

== ENCOUNTER → 2022-06-05 10:06 | Outpatient (BNVA) | payer MEDICARE, MEDICAID, SELFPAY | PROVIDERS: PCP Nurse Practitioner Family; Visit Provider Internal Medicine Pulmonary Disease | DX: Z01.811 Encounter for preprocedural respiratory examination (principal); J45.909 Unspecified asthma, uncomplicated; I48.91 Unspecified atrial fibrillation; G47.33 Obstructive sleep apnea (adult) (pediatric); M25.462 Effusion, left knee; Z86.16 Personal history of COVID-19; Z87.891 Personal history of nicotine dependence; Z79.01 Long term (current) use of anticoagulants | CPT/HCPCS: 99214 ==

== ENCOUNTER → 2022-06-20 07:49 | Outpatient (BNVA) | payer MEDICARE, MEDICAID, SELFPAY | PROVIDERS: PCP Nurse Practitioner Family; Visit Provider Nurse Practitioner Family | DX: M17.0 Bilateral primary osteoarthritis of knee (principal) | CPT/HCPCS: 73560; 73565 ==

== ENCOUNTER 2022-07-01 07:16 | Outpatient (CLI) | payer MEDICARE, MEDICAID, SELFPAY ==
--- NOTE | 2022-07-01 07:45 | CT_ITS ---
WS: [id number] CT LEFT KNEE, NONCONTRAST TECHNIQUE: Noncontrast CT of the LEFT knee to include the LEFT hip and ankle. CLINICAL INFORMATION: pain COMPARISON: None. DLP: 901.[address] scans at [facility] use at least one of these dose optimization techniques: automated e xposure control; mA and/or kV adjustment per patient size (includes targeted exams where dose is matc hed to clinical indication); or iterative reconstruction. FINDINGS: Advanced tricompartmental arthritis LEFT knee worse in the medial joint compartment. Konr-lf-syqs art iculation medial joint compartment. Hypertrophic changes along the joint line. Small suprapatellar ef fusion. Soft tissue edema. Sigmoid diverticulosis. Small fat-containing inguinal hernias. Prominent prostate measuring 4.6 x 4.6 CM. Recommend correlation PSA. CT/CT knee LT wo con* [id number] IMPRESSION: Images obtained for preoperative purposes.
== END 2022-07-01 07:17 | disposition home or self-care (01) ==
LOC: RAD 07:18
PROVIDERS: PCP Nurse Practitioner Family; Visit Provider Nurse Practitioner Family
DX: M25.562 Pain in left knee (principal)
CPT/HCPCS: 73700; 99214

== ENCOUNTER 2022-07-07 10:49 | Outpatient (CLI) | payer MEDICARE, MEDICAID, SELFPAY | END 2022-07-07 10:50 | disposition home or self-care (01) | LOC: RT 07-13 10:50 | PROVIDERS: PCP Nurse Practitioner Family; Visit Provider Orthopaedic Surgery | DX: Z01.810 Encounter for preprocedural cardiovascular examination (principal) | CPT/HCPCS: 93005 ==

== ENCOUNTER 2022-07-17 13:08 | Observation (INO) | payer MEDICARE, MEDICAID, SELFPAY ==
[2022-07-07 13:02] VITALS: BMI 36.3
--- NOTE | 2022-07-07 13:17 | ECG_ITS ---
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 Measurements Intervals [place] Rate: 72 P: 89 TX: 176 QRS: 53 QRSD: 87 T: 51 QT: 372 QTc: 407 Interpretive Statements SINUS RHYTHM Compared to ECG 11/01/2019 14:26:56 ST (T wave) deviation no longer present Electronically Signed On 07-07-2022 13:40:10 CDT by Carlitos Navarrete M.D. [id number]
[2022-07-07 13:31] LABS: Basophils # 0.1 10^3/uL (0.0-0.1); Basophils % 0.6 %; Eosinophils # 0.1 10^3/uL (0.0-0.8); Eosinophils % 1.2 %; Hematocrit 44.3 % (42.0-52.0); Hemoglobin 15.3 g/dL (11.7-16.6); Lymphocytes % 23.5 %; Mean Corpuscular HGB Conc 34.5 g/dL (30.0-36.0); Mean Corpuscular Hemoglobin 33.3 pg (28.0-34.0); Mean Corpuscular Volume 96.3 fl (80-94); Mean Platelet Volume 9.1 fL (7.4-10.4); Monocytes # 0.9 10^3/uL (0.2-0.9); Monocytes % 10.3 %; Neutrophils # 5.35 10^3/uL (1.8-7.7); Neutrophils % 63.9 %; Nucleated Red Blood Cells % 0 %; Platelet Count 314 10^3/cmm (130-400); Red Cell Distribution Width 11.9 % (12.1-15.1); White Blood Count 8.4 10^3/uL (4.0-10.0)
[2022-07-07 14:05] LABS: Anion Gap 19.9 (5-19); Blood Urea Nitrogen 25 mg/dL (8-23); Calcium 9.7 mg/dL (8.5-10.5); Carbon Dioxide 23 mmol/L (22-29); Chloride 98 mmol/L (98-107); Glomerular Filtration Rate 55.9 mL/min (90-130); Glucose 103 mg/dL (65-115); Osmolality Calculated 289 mOsm/kg (285-295); Potassium 3.9 mmol/L (3.5-5.1); Sodium 137 mmol/L (136-145)
--- NOTE | 2022-07-07 14:45 | P.ANESASSM_ITS ---
Pre-Anesthetic Assessment Height/Weight: Height 1.83 m Weight 121.563 kg Operation Date: 07/17/22 10:00 Proposed Procedures p Left TKA eugenia/ 02497, M17.12(Left) - Moreno Wharton MD Familial anesthetic complications: none Was Beta Josie taken within 24 hours: N/A Was Clonidine taken within 24 hours: N/A Social No alcohol and No tobacco Exam alert, oriented x 3 and clear to auscultation bilaterally Airway Submandibular: within normal limits Cervical ROM: within normal limits Mallampati: Class II Dentition: false (upper) Pulmonary Sleep Apnea CV/HEM Atrial Fibrillation, Coronary Artery Disease (stents) and Hypertension Metabolic Morbid Obesity [facility] Osteoarthritis/DJD Neuropsych Seizure and Transient Ischemic Attack Anesthetic Plan ASA status: 3 Anesthesia: Regional (specify below) (SAB with adductor blk) Medications/Allergies Home Medications Medication Instructions Recorded Confirmed Last Taken Type Qunol Ultra CoQ10 See Rx Instructions .Route .COMPLEX 03/10/19 07/07/22 07/07/22 History magnesium oxide See Rx Instructions .Route .COMPLEX 04/11/19 07/07/22 07/07/22 History nitroglycerin 0.4 mg sublingual 0.4 mg sublingual ONCE PRN chest 09/23/19 07/07/22 Unknown Rx tablet pain #1 pkg chlorthalidone 25 mg tablet 25 mg PO DAILY #30 tabs 11/07/19 07/07/22 07/07/22 Rx clonidine HCl 0.1 mg tablet 0.1 mg PO BID PRN hypertensive 04/07/20 07/07/22 Unknown Rx emergency 30 days #30 tabs diltiazem HCl 360 mg 360 mg PO DAILY 30 days #30 tabs 04/07/20 07/07/22 07/07/22 Rx tablet,extended release 24 hr apixaban 5 mg tablet (Eliquis) 5 mg PO BID 30 days #60 tabs 06/07/20 07/07/22 07/06/22 Rx spironolactone 25 mg tablet 25 mg PO DAILY 30 days #30 tabs 06/07/20 07/07/22 07/07/22 Rx isosorbide mononitrate 120 mg 120 mg PO DAILY 11/22/20 07/07/22 07/07/22 History tablet,extended release 24 hr xkwpbqyj-pcrbndlf-aailp acid 400 1 tab PO DAILY 12/07/20 07/07/22 07/07/22 History mcg-vit K 20 mcg-lycop 300 mcg tablet (One-A-Day Men's Multivitamin) omega-3 fatty acids 1,000 mg 2,000 mg PO DAILY 12/07/20 07/07/22 07/07/22 History capsule (Fish Oil Concentrate) s-adenosylmethionine 400 mg tablet 400 mg PO DAILY 12/07/20 07/07/22 07/07/22 History (Sandeep-E) lisinopril 40 mg tablet 20 mg PO DAILY PRN high blood 12/05/21 07/07/22 Unknown History pressure ipratropium 20 mcg-albuterol 100 1 puff inhalation Q6H PRN 03/16/22 07/07/22 Unknown Rx mcg/actuation mist for inhalation shortness of breath or wheezing #4 (Combivent Respimat) grams ezetimibe 10 mg tablet 10 mg PO DAILY 30 days #30 tabs 04/10/22 07/07/22 07/07/22 Rx Symbicort 80 mcg-4.5 mcg/actuation 2 puff inhalation DAILY #10.2 grams 06/13/22 07/07/22 07/07/22 Rx HFA aerosol inhaler (budesonide-formoterol) Allergies Allergy/AdvReac Type Severity Reaction Status Date / Time amlodipine Allergy Intermediate rash Verified 07/07/22 12:54 acetaminophen [From Vicodin] Allergy Unknown behavior Verified 07/07/22 12:54 changes hydrocodone [From Vicodin] Allergy Unknown behavior Verified 07/07/22 12:54 changes Beef Containing Products Allergy ALGY-Bliste Verified 07/07/22 12:54 r Milk Containing Products Allergy ALGY-Rash Verified 07/07/22 12:54 (Dairy) [Milk Containing Products] Pork/Porcine Containing Allergy ALGY-Bliste Verified 07/07/22 12:54 Products r PFSH Anesthesia Medical History Accelerated hypertension 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 CAD (coronary artery disease) History of 2019 novel coronavirus disease (COVID-19) October 21, 2019 Osteoarthritis of left knee Surgical History Stented coronary artery Family History Mother Cancer Liver Other CAD (coronary artery disease) Hypertension Parkinson's disease Social History Smoking and tobacco status: former smoker Quit status (tobacco): has quit using tobacco Year quit tobacco: 2000 - casual smoker Second hand smoke exposure: Yes Smoking risk assessment/counseling performed?: No Alcohol intake: never Desire information about alcohol rehabilitation?: No Counseling given: No Substance/Drug Use: never Desire information about substance/drug rehabilitation?: No Counseling given: No Adopted: No Caregiver/support person: No Lives independently: Yes Household members: spouse Housing: House Marital status: Number of children: 6 service: No Current occupational status: retired Do you think of yourself as: Straight/Heterosexual Current gender identity: Male Data Anesthesia 07/07/22 13:23 07/07/22 13:23 Short CBC 07/07/22 Range/Units 13:23 WBC 8.4 (4.0-10.0) 10^3/uL Hgb 15.3 (11.7-16.6) g/dL Hct 44.3 (42.0-52.0) % MCV 96.3 H (80-94) fl Plt Count 314 (130-400) 10^3/cmm Neut % (Auto) 63.9 % Neut # (Auto) 5.35 (1.8-7.7) 10^3/uL BMP 07/07/22 13:23 Sodium 137 Potassium 3.9 Chloride 98 Carbon Dioxide 23 BUN 25 H Creatinine 1.3 H Glucose 103 Calcium 9.7 Cardiac Studies: Echocardiogram 03/24/20 Echocardiogram Ultrasound 10/25/19 Cardiac Event Monitor 12/12/19
[2022-07-17] VITALS (17 sets, daily range): BP systolic 101–137; BP diastolic 56–93; PULSE 69–78; RESP 16–18; TEMP 36.1–36.8; O2SAT 90–98
[2022-07-17] MEDS: sodium chloride 0.9% 1,000 ML 30 ML IV (08:47)
[2022-07-17] MEDS: acetaminophen 500 mg Tablet 1000 MG PO (08:54)
--- NOTE | 2022-07-17 09:47 | W.PM.OPSFHP ---
Same Day Surgery H&P Indication for Procedure/HPI DATE OF PROCEDURE: July 17, 2022 CHIEF COMPLAINT/INDICATIONFOR SURGICAL PROCEDURE: Colitis left knee here for total knee arthroplasty PREOP DIAGNOSIS: Osteoarthritis left knee PLANNED PROCEDURE: Operation Date: 07/17/22 10:00 Proposed Procedures p Left TKA eugenia/ 17862, M17.12(Left) - Moreno Wharton MD Valentin is a 61-year-old male with chronic left knee pain. Unable to control pain and maintain ambulatory status despite reasonable conservative measures patient states cortisone injection 01/26/23 and only lasted for 1 month.? Patient rates pain at 5/10 in clinic today. Patient states that he has been trying to walk every day for weight loss but pain from knees interfere with his hips and back and cause him to take frequent breaks.? Patient has popping and grinding knee pain at night is unable to take anti-inflammatories such as Tylenol arthritis states is not cutting it Medications/Allergies* Home Medications Medication Instructions Recorded Confirmed Type Qunol Ultra CoQ10 See Rx Instructions .Route .COMPLEX 03/10/19 07/07/22 History magnesium oxide 400 mg PO DAILY 04/11/19 07/17/22 History isosorbide mononitrate 120 mg 120 mg PO DAILY 11/22/20 07/07/22 History tablet,extended release 24 hr hvnvppla-ywjvirdt-mqbyk acid 400 1 tab PO DAILY 12/07/20 07/07/22 History mcg-vit K 20 mcg-lycop 300 mcg tablet (One-A-Day Men's Multivitamin) omega-3 fatty acids 1,000 mg 2,000 mg PO DAILY 12/07/20 07/07/22 History capsule (Fish Oil Concentrate) s-adenosylmethionine 400 mg tablet 400 mg PO DAILY 12/07/20 07/07/22 History (Sandeep-E) lisinopril 40 mg tablet 20 mg PO DAILY PRN high blood 12/05/21 07/17/22 History pressure Allergies/Adverse Reactions Allergy/AdvReac Type Severity Reaction Status Date / Time amlodipine Allergy Intermediate rash Verified 07/07/22 12:54 acetaminophen [From Vicodin] Allergy Unknown behavior Verified 07/07/22 12:54 changes hydrocodone [From Vicodin] Allergy Unknown behavior Verified 07/07/22 12:54 changes Beef Containing Products Allergy ALGY-Bliste Verified 07/07/22 12:54 r Milk Containing Products Allergy ALGY-Rash Verified 07/07/22 12:54 (Dairy) [Milk Containing Products] Pork/Porcine Containing Allergy ALGY-Bliste Verified 07/07/22 12:54 Products r Current Medications: Generic Name Dose Route Start Last Admin Trade Name Freq PRN Reason Stop Dose Admin Sodium Chloride 1,000 mls @ 30 mls/hr 07/17/22 08:30 07/17/22 08:47 Sodium Chloride 0.9% IV 07/18/22 08:29 30 mls/hr .Q24H JENNIFER Administration Pertinent History/Comorbid Conditions* Medical History (Updated 06/05/22 @ 11:03 by Mahesh Jackson MD) Accelerated hypertension 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 CAD (coronary artery disease) History of 2019 novel coronavirus disease (COVID-19) October 21, 2019 Osteoarthritis of left knee Surgical History (Updated 08/12/19 @ 19:39 by Lamar Cates MD) Stented coronary artery Family History (Updated 10/22/19 @ 09:15 by Greg Winters MD) CAD (coronary artery disease) Cancer Mother Liver Hypertension Parkinson's disease Social History Smoking and tobacco status: former smoker Quit status (tobacco): has quit using tobacco Year quit tobacco: 1999 - casual smoker Second hand smoke exposure: Yes Smoking risk assessment/counseling performed?: No Alcohol intake: never Desire information about alcohol rehabilitation?: No Counseling given: No Substance/Drug Use: never Desire information about substance/drug rehabilitation?: No Counseling given: No Adopted: No Caregiver/support person: No Lives independently: Yes Household members: spouse Housing: House Marital status: Number of children: 6 service: No Current occupational status: retired Do you think of yourself as: Straight/Heterosexual Current gender identity: Male Pertinent Exam Findings alert, oriented x 3, clear to auscultation bilaterally, regular rate & rhythm and operative site marked Left knee motion is from full extension to 130 degrees. Over his medial joint line. Tracks well. Recommendations Surgery/Procedure today Coding Level of Care Code Acute Code for Chg Fwd Diagnoses
--- NOTE | 2022-07-17 09:57 | P.ANESUD_ITS ---
Pre-Anesthetic Update Pre-Anesthetic Assessment: Date of Surgery/Procedure: 07/17/22 Preop Rosalinda gnosis: Osteoarthritis left knee Proposed Procedure: Operation Date: 07/17/22 10:00 Proposed Procedures p Left TKA eugenia/ 23007, M17.12(Left) - Moreno Wharton MD Any changes to Pre-Anesthetic Assessment?: No Last Intake: Intake Last Liquid Date 07/16/22 Last Liquid Time 19:00 Last Solid Date 07/16/22 Last Solid Time 19:00 Vitals: Temperature 97.4 F L 07/17/22 08:31 Temperature Source Temporal Artery S can 07/17/22 08:31 Pulse Rate 71 07/17/22 08:31 Pulse Rhythm Regular 07/17/22 08:32 Pulse Strength 3+ Normal 07/17/22 08:32 Respiratory Rate 18 07/17/22 08:31 Blood Pressure 127/77 07/17/22 08:31 Blood Pressure Grisel n 93 07/17/22 08:31 Pulse Oximetry 95 07/17/22 08:31 Oxygen Delivery Me thod Room Air 07/17/22 08:32 Exam: Pre-Anes Outpt Exam: alert, oriented x 3, clear to auscultation bilaterally and regular rate & rhythm Cardiac Studies: Echocardiogram 03/24/20 Echocardiogram Ultrasound 10/25/19 Cardiac Event Monitor 12/12/19
[2022-07-17] MEDS: ceFAZolin 2,000 MG in sodium chloride 0.9% (plus) 50 ML 100 MG IV ×2 (10:01→17:51)
--- NOTE | 2022-07-17 10:30 | ANES.PROC ---
Anesthesia Procedures Procedure/Date: 07/17/22 Nerve Block ^: Nerve Block 1: Main Anesthesia: spinal anesthesia block Time Out Performed: Yes Consent: requested by attending/covering physician, from patient, risks and benefits reviewed and patient agrees to proceed Nerve block location: adductor canal (left) Anesthesia monitors applied: pulse oximetry, EKG, BP cuff and oxygen Nerve block position: supine Anesthetic Used: ropivicaine 0.5% Amount of anesthesia used (mL): 20 Ultrasound used to: recognize landmarks Nerve Stimulator Used?: No Interscalene/Femoral BLK: 4 stimuplex 21 g needle used for position and inplane approach Injection: neg aspiration of heme Patient Tolerated Procedure: well Complications: none
[2022-07-17] MEDS: sodium chloride 0.9% 100 mL Bag XX (11:08)
[2022-07-17] MEDS: ketorolac 30 mg/mL INJ XX (11:09)
[2022-07-17] MEDS: EPINEPHrine 1 mg/mL INJ XX (11:09)
--- NOTE | 2022-07-17 12:33 | XRR_ITS ---
PROCEDURE INFORMATION: Exam: XR Left Knee Exam date and time: 07/17/2022 12:54 PM Age: 61 years old Clinical indication: Device placement; Joint replacement hardware; Prior surgery; Surgery date: Post-operative (0-2 days); Surgery type: Lt tkr; Additional info: Left total knee arthroplasty TECHNIQUE: Imaging protocol: Radiologic exam of the left knee. Views: 1 or 2 views. COMPARISON: CT knee LT wo con* [id number] 07/01/2022 7:30 AM FINDINGS: Bones/joints: Postsurgical changes are noted, with left knee prosthesis. Satisfactory or anatomic alignment and position noted. No abnormal lucency is seen around the prosthesis. No fracture or acute osseous abnormality. Soft tissues: Postsurgical soft tissue changes. XR/XR knee LT 1-2V [id number] IMPRESSION: Postsurgical change with left knee prosthesis and without acute findings, otherwise.
--- NOTE | 2022-07-17 12:41 | P.OP_ITS ---
Operative Report Date of procedure: July 17, 2022 Pre-op diagnosis: Preop Diagnosis Osteoarthritis left knee Post-op diagnosis: same Post-op diagnosis: Same Post-op findings: Same Procedure done: Left total knee arthroplasty Implants: [place] Triathalon total knee arthroplasty components were used includin) Size 6 triathalon cruciate retaining femoral component 2) Size 7 Tritanium tibial component 3) Size 7/9mm thickness CS tibial bearing insert Pathology: none sent Surgeon: Moreno Wharton Basketball Scout: Abel Chandra Basketball Scout: The nurse practitioner the nurse practitioner assisted with critical portions of the case including positioning, draping, exposure, component implantation, closure and dressing application and is present through the entirety of the case. Anesthesia: Nerve Block (Spinal, adductor canal block) Estimated blood loss (mL): 100 Findings: The patient eburnated bone over the medial femoral condyle and medial tibial plateau. There was minimal patellar chondromalacia and the patella articulated well with the trochlear groove of the femoral component. Condition: stable Disposition: PACU Procedure: The patient was taken to the operating room. Patient was given 1 g of tranexamic acid and 2 g of Ancef. The above anesthesia provided by the anesthesia service. A timeout was performed. The patient was prepped and draped in the usual fashion with the lower extremity exposed. A anterior incision was made, midline, from a point proximal to the patella to the distal tibial tubercle. The knee was entered through a medial parapatellar approach. The patella could be displaced laterally and the knee flexed. The patellar fat pad was resected to provide better visibility. Retractors were placed medially and laterally adjacent to the tibial plateau. At a point approximately 8 cm above the patella, 2 small incisions were made with a scalpel blade and 2 long threaded pins were placed into the anterior medial femur engaging both cortices. The femoral arrays were placed over these pins and secured. At a point 8 cm distal to the tibial tubercle. 2 shorter bicortical threaded pins were placed across the anterior medial tibia and the tibial arrays placed. A checkpoint was made just proximal and medial to the medial femoral condyle and just medial to the tibial plateau. Small osteotomes were placed in the joint in both flexion and extension to determine ligamentous laxity. The cut and additional 2 degrees of varus and externally rotated 3 degrees to accommodate tightness in flexion and extension. The OLESYA robot was then introduced to the field and the femur and tibia cut in accordance with our plan. Lecture cautery was then applied across the posterior capsule for additional hemostasis. he posterior capsule and collateral ligaments were then injected with a solution of 100 mL of 0.2% ropivacaine, 1 mL of a 1:1000 epinephrine solution, 30 mg of Toradol, and 1 g of tranexamic acid. A trial with the above components provided excellent stability and balance through a full range of motion. A gentamicin irrigation solution of 160 mg gentamicin and in 100 mL of normal saline was used during bone cuts and to irrigate surfaces before implantation of components. The femur was then prepared for the femoral pegs of the component in the tibia for the tibial component. The femur and tibia were then press-fit into place. An osteotome was used to remove the lateral 8 mm of the patella to minimize chances of later impingement. A neurectomy was accomplished circumferentially about the patella with electrocautery and lateral osteophytes removed. Surfaces were cleaned with a gentamicin solution. The femur and tibia were then press-fit into place. Tinal polyethylene component was then snapped into place into the tibia. The knee was then soaked in a 0.35% solution. Excessive betadine was removed with suction. The extensor retinaculum was closed with a running 1 Stratafix interrupted 1 Ethibond. The subcutaneous tissues were closed with 2-0 Vicryl and the skin was closed with a running 4-0 Stratafix. The wound was covered with a Dermabond Prineo dressing. It was covered with 4xrs and a compressive Tubigauze was applied. The patient was taken to recovery room in stable condition.
--- NOTE | 2022-07-17 13:40 | ANE.PACU2 ---
Inpatient post-anesthesia follow up: Airway intact: Yes Vital signs: Temperature 97 F Pulse Rate 73 Respiratory Rate 16 Blood Pressure 115/56 Pulse Oximetry 91 Oxygen Delivery Me thod Room Air Oxygen Flow Rate Fraction of Inspir ed Oxygen Hydration adequate: Yes Nausea and vomiting: No Pain level: 1 Mental status: Baseline
[2022-07-17] MEDS: sodium chloride 0.9% 1,000 ML 100 ML IV ×2 (14:02→22:58)
[2022-07-17] MEDS: oxyCODONE 5 mg IR Tab/Cap PO ×3 (14:05→22:58)
[2022-07-17] MEDS: sennosides-docusate Tablet 2 TAB PO (17:51)
[2022-07-18] VITALS (8 sets, daily range): BP systolic 103–133; BP diastolic 65–75; PULSE 63–78; RESP 16–18; TEMP 36.4–37; O2SAT 91–98
[2022-07-18] MEDS: ceFAZolin 2,000 MG in sodium chloride 0.9% (plus) 50 ML 100 MG IV ×2 (00:58→08:23)
[2022-07-18] MEDS: oxyCODONE 5 mg IR Tab/Cap PO ×3 (03:41→12:12)
[2022-07-18 05:56] LABS: Hemoglobin 13.4 g/dL (11.7-16.6)
[2022-07-18] MEDS: budesonide 0.5 mg/2 mL Neb INHALATION (07:45)
[2022-07-18] MEDS: albuterol 2.5 mg/3 mL Neb INHALATION (07:45)
--- NOTE | 2022-07-18 08:15 | PC.OT ---
OT evaluation attempted at 0805. Pt. in with PT. OT evaluation to be attempted later in day.
[2022-07-18] MEDS: omega-3 fatty acids 1,000 mg Capsule 2000 MG PO (08:24)
[2022-07-18] MEDS: magnesium oxide 400 mg tablet PO (08:24)
[2022-07-18] MEDS: ezetimibe 10 mg Tablet PO (08:24)
[2022-07-18] MEDS: isosorbide mononitrate ER 60 mg Tablet 120 MG PO (08:24)
[2022-07-18] MEDS: apixaban 5 mg Tablet PO (08:25)
[2022-07-18] MEDS: spironolactone 25 mg Tablet PO (08:25)
[2022-07-18] MEDS: sennosides-docusate Tablet 2 TAB PO (08:25)
[2022-07-18] MEDS: dilTIAZem ER (24HR) 180 mg Capsule 360 MG PO (09:41)
--- NOTE | 2022-07-18 10:14 | PC.CHAP ---
Pastoral Care Encounter/Spiritual Assessment Type of Contact [] Declined sulfuric acid plant supervisor visit [] Patient/Family/Request visit [] Outpatient visit [] Follow-up visit [] Physician referral [] Code/Alert [x] Routine visit [] Staff referral [] Actively dying [] Patient sleeping [] Family support [] [] Out of room [] Palliative care [] [] Receiving care in room [] Pre-surgical visit [] Trauma [] Long length of stay [] ICU visit [] Other: Relational/Emotional Strength [x] Patient feels connected with others/family/visitors/staff [] Distress [] Loneliness/isolation [] Abandonment Spirituality of Patient [x] Person of Ana [] Attends Mandaeism of their Ana [x] Believes in Prayer [] Reads Bible or Christianity materials [] There are Spiritual issues to be addressed Endless Steamer Tender Interventions [x] Prayer [x] Active listening [] Non-anxious presence [x] Spiritual/emotional support [] Crisis/trauma care [] Spiritual counseling [] Bereavement support [] Provided bereavement packet [] Provided Bible/devotional materials [] Provided toy/stuffed animal, coloring book to patient or family member [] Provided Communion [] Anointing/[place] [] Salvation [] Completed spiritual assessment [] Other: Impact on Illness or Injury [] Angry [] Fearful [] Anxious [] Often cries [] Exhaustion [] Unable to work [] Unable to attend anglican [] Unable to walk/stand [] Unable to read [] Unable to drive [] Unable to eat/drink [] Unable to sleep [] Unable to be with family [] Patient intubated [] Other: Summary Time spent with patient 5 min
--- NOTE | 2022-07-18 10:28 | P.DS_ITS ---
Discharge Providers Date of Admission: 07/17/22 13:08 Date of Discharge: July 18, 2022 Attending Provider at Admission: Moreno Hernandez MD Attending Provider at Discharge: Moreno Hernandez MD Primary Care Provider: CORINA Brooks Reason for Visit 2 Reason for Visit: M17.12 Brief History: The patient is a 61-year-old male with left knee pain despite reasonable medical measures including multiple injections without improvement. He is on chronic anticoagulation and is not a candidate for anti-inflammatories. He had progressive pain and functional loss and is admitted for elective left total knee arthroplasty Hospital Course Hospital Course The patient tolerated surgery well. They remained hemodynamically stable. They resumed their apixaban and were placed on foot for DVT prophylaxis. The patient was mobilized with therapy beginning the day of surgery and by the first postoperative day independent with the walker. As the pain was adequately controlled and they were fully mobile they were discharged home. Physical Exam Narrative: On the day of discharge the knee incision was clean. They had no drainage. There is minimal swelling in the thigh and knee and the calf. No distal neurovascular deficits were noted Urinary Catheter Management: Perez: Cath Placed During This Visit: yes, but has since been removed by the nurse Reason for Continuing Indwelling Catheter: Decision to DC Catheter Urinary Catheter Date of Insertion: 07/17/22 Urinary Catheter Time of Insertion: 10:30 Date Urinary Catheter Removed: 07/18/22 Time Urinary Catheter Discontinued: 04:45 Discharge Data Studies Completed and Pending Completed Studies During Hospitalization Category Date Time Status XR knee LT 1-2V 40308 Routine Exams 07/17/22 12:33 Completed Radiology Impressions Knee X-Ray 07/17/22 12:33 IMPRESSION: Postsurgical change with left knee prosthesis and without acute findings, otherwise. Laboratory Results WBC 8.4 10^3/uL (4.0-10.0) 07/07/22 13: RBC 4.60 10^6/uL (4.1-5.3) 07/07/22 13:23 Hgb 13.4 g/dL (11.7-16.6) 07/18/22 05:29 Hct 44.3 % (42.0-52.0) 07/07/22 13:23 MCV 96.3 fl (80-94) H 07/07/22 13:23 MCH 33.3 pg (28.0-34.0) 07/07/22 13:23 MCHC 34.5 g/dL (30.0-36.0) 07/07/22 13: RDW 11.9 % (12.1-15.1) L 07/07/22 13:23 Plt Count 314 10^3/cmm (130-400) 07/07/22 13:23 MPV 9.1 fL (7.4-10.4) 07/07/22 13:23 Neut % (Auto) 63.9 % 07/07/22 13:23 Lymph % (Auto) 23.5 % 07/07/22 13:23 Green % (Auto) 10.3 % 07/07/22 13: Eos % (Auto) 1.2 % 07/07/22 13: Baso % (Auto) 0.6 % 07/07/22 13: Neut # (Auto) 5.35 10^3/uL (1.8-7.7) 07/07/22 13: Lymph # (Auto) 2.0 10^3/uL (0.8-4.8) 07/07/22 13:23 Green # (Auto) 0.9 10^3/uL (0.2-0.9) 07/07/22 13:23 Eos # (Auto) 0.1 10^3/uL (0.0-0.8) 07/07/22 13: Baso # (Auto) 0.1 10^3/uL (0.0-0.1) 07/07/22 13: Nucleated RBC % (auto) 0 % 07/07/22 13: Nucleated RBCs # 0.0 /100WBC 07/07/22 13:23 Sodium 137 mmol/L (136-145) 07/07/22 13:23 Potassium 3.9 mmol/L (3.5-5.1) 07/07/22 13:23 Chloride 98 mmol/L (98-107) 07/07/22 13:23 Carbon Dioxide 23 mmol/L (22-29) 07/07/22 13:23 Anion Gap 19.9 (5-19) H 07/07/22 13:23 BUN 25 mg/dL (8-23) H 07/07/22 13:23 Creatinine 1.3 mg/dL (0.7-1.2) H 07/07/22 13:23 GFR Calculation 55.9 mL/min (90-130) L 07/07/22 13:23 Glucose 103 mg/dL (65-115) 07/07/22 13:23 Calculated Osmolality 289 mOsm/kg (285-295) 07/07/22 13:23 Calcium 9.7 mg/dL (8.5-10.5) 07/07/22 13:23 Vitals Last Vital Signs Temp 98.2 F 07/18/22 09:03 Pulse 78 07/18/22 09:03 Resp 18 07/18/22 09:03 BP 113/65 07/18/22 09:03 Pulse Ox 93 07/18/22 09:03 O2 Del Method Room Air 07/18/22 09:03 O2 Flow Rate 95 07/18/22 09:03 Discharge Plan Discharge Patient Disposition: Home Condition: Stable Prescriptions: New oxycodone 5 mg Tablet 5 mg PO Q4H PRN (Reason: Moderate Pain) 7 Days Qty: 40 0RF Continued Qunol Ultra CoQ10 See Rx Instructions .ROUTE .COMPLEX Rx Instructions: take as directed chlorthalidone 25 mg tablet 25 mg PO DAILY Qty: 30 3RF Eliquis 5 mg tablet 5 mg PO BID 30 Days Qty: 60 0RF Rx Instructions: stop 5 days prior to surgery spironolactone 25 mg tablet 25 mg PO DAILY 30 Days Qty: 30 0RF isosorbide mononitrate 120 mg tablet extended release 24 hr 120 mg PO DAILY magnesium oxide 400 mg PO DAILY Patient Comments: with potassium by report from patient Rx Instructions: take daily omega-3 fatty acids [Fish Oil Concentrate] 1,000 mg capsule 2,000 mg PO DAILY Rx Instructions: stop 5 days prior to sx Sandeep-E 400 mg tablet 400 mg PO DAILY Rx Instructions: administer on an empty stomach One-A-Day Men's Multivitamin 400-20-300 mcg tablet 1 tab PO DAILY ezetimibe 10 mg tablet 10 mg PO DAILY 30 Days Qty: 30 5RF Rx Instructions: 340B lisinopril 40 mg tablet 20 mg PO DAILY PRN (Reason: high blood pressure) Patient Comments: 20-40 mg nitroglycerin 0.4 mg tablet, sublingual 0.4 mg SUBLINGUAL ONCE PRN (Reason: chest pain) Qty: 1 3RF Rx Instructions: as directed clonidine HCl 0.1 mg tablet 0.1 mg PO BID PRN (Reason: hypertensive emergency) 30 Days Qty: 30 5RF Rx Instructions: 340B diltiazem HCl 360 mg tablet extended release 24 hr 360 mg PO DAILY 30 Days Qty: 30 2RF Rx Instructions: 340B Combivent Respimat 20-100 mcg/actuation mist 1 puff INHALATION Q6H PRN (Reason: shortness of breath or wheezing) Qty: 4 3RF budesonide-formoterol [Symbicort] 80-4.5 mcg/actuation HFA aerosol inhaler 2 puff inhalation DAILY Qty: 10.2 6RF Discharge Orders: Discharge Order (Routine); Ordered 07/18/22 Ordered By: Moreno Hernandez Other Ambulatory Orders: DME: Jeremy (Order) Location: None Selected Ordered By: Moreno Hernandez Referrals: Moreno Hernandez MD [Physician] - 08/01/22 1:45 pm Discharge Diet: Advance as tolerated Discharge Activity: Limit activity as instructed Patient Instructions: Opioid Safety Activity Restrictions/Additional Instructions: Okay to shower Keep Tubigauze sleeve in place for swelling. Okay to remove for hygiene. May remove superficial dressing in 48 hours Apply FirstIce up to 20 min/hr for pain and swelling take oxycodone for breakthrough pain. Exercises per physical therapy. May weight-bear as tolerated on total knee arthroplasty IF HAVE ANY PROBLEMS OR QUESTIONS CALL [facility] NURSE AT AND ASK TO HAVE DR. HERNANDEZ PAGED. Discharge Attestations Time Spent in Discharge Care*: other Status at Discharge: Cognitive status at discharge: cognitively intact , Behavioral status at discharge: cooperative , Quality Metrics Clinical Quality Measures [ No reported AMI, CVA or VTE this stay] Coding Level of Care Code Acute Code for Chg Fwd Diagnoses
--- NOTE | 2022-07-18 12:45 | PC.NURSE ---
IV removed intact Patient tolerated well. Patient is A&Ox3. Respirations even and non-labored on room air. Reviewed patient discharge with patient and family at this time. Patient verbalized understanding of discharge instructions including medications and follow up appointments. Patient assisted into wheel chair and pushed to private car.
== END 2022-07-18 12:45 | disposition home or self-care (01) ==
LOC: MEDSURG 13:08
PROVIDERS: Anesthesiology; Admitting Provider Orthopaedic Surgery; PCP Nurse Practitioner Family; Visit Provider Orthopaedic Surgery
PROC: 8E0Y0CZ Robotic Assisted Procedure of Lower Extremity, Open Approach (ICD-10-PCS; CPT 27447; principal; 2022-07-17 09:30)
DX: M17.12 Unilateral primary osteoarthritis, left knee (principal); Z79.01 Long term (current) use of anticoagulants; G47.30 Sleep apnea, unspecified; I48.91 Unspecified atrial fibrillation; I25.10 Atherosclerotic heart disease of native coronary artery without angina pectoris; Z95.5 Presence of coronary angioplasty implant and graft; I10 Essential (primary) hypertension; E66.01 Morbid (severe) obesity due to excess calories; Z68.36 Body mass index [BMI] 36.0-36.9, adult; Z86.73 Personal history of transient ischemic attack (TIA), and cerebral infarction without residual deficits; Z87.891 Personal history of nicotine dependence
CPT/HCPCS: 20985; 27447; 36415; 51702; 73560; 80048; 85018; 85025; 94640; 97110; 97116; 97161; 97165; 97530; C1776; G0378; J0171; J0690; J1580; J1885; J2370; J2795; J7030; J7613; J7626; P9047

== ENCOUNTER 2022-07-21 18:37 | Emergency (ER) | payer MEDICARE, MEDICAID, SELFPAY ==
[2022-07-21 18:47] VITALS: BP 139/73; PULSE 82; RESP 16; TEMP 36.5; O2SAT 93; BMI 36.3
--- NOTE | 2022-07-21 19:21 | XRR_ITS ---
PROCEDURE INFORMATION: Exam: XR Left Knee Exam date and time: 07/21/2022 7:32 PM Age: 61 years old Clinical indication: Swelling or effusion of joint; Prior surgery; Surgery date: Post-operative (0-2 days); Surgery type: Knee replacement; Additional info: Left knee swelling and pain, S/P knee replacement. TECHNIQUE: Imaging protocol: Radiologic exam of the left knee. Views: 1 or 2 views. COMPARISON: CR XR knee LT 1-2V 45241 07/17/2022 12:54 PM FINDINGS: Bones/joints: Recently placed left total knee arthroplasty in expected alignment. Osseous structures are intact. Soft tissues: Soft tissue swelling and gas noted within the anterior left knee consistent with recent surgical procedure. XR/XR knee LT -2V 53192 IMPRESSION: Recently placed left total knee arthroplasty in expected alignment.
--- NOTE | 2022-07-21 19:24 | W.ED.WOUNDLC ---
HPI - Wound/Laceration General: Chief Complaint: Wound/Laceration Stated Complaint: Left knee swelling and redness post knee surgery Time Seen by Provider: 07/21/22 19:14 Source: patient Mode of arrival: ambulatory Limitations: no limitations History of Present Illness: This 61-year-old male with a history of hypertension, coronary artery disease and osteoarthritis presents to the ER for evaluation of redness, swelling and pain in the left knee. Patient had a total knee replacement on Sunday (4 days ago) and noticed that this morning there was a little drainage from the surgical wound. He states that the leg would swell up, turned red, become painful and swelling would slightly improved. He also notes that he has slight fever with temperatures between 99 and 100.1 at home. Patient has no nausea, vomiting, shortness of breath or chest pain. When he saw the drainage, which was in form of a stain on the wound dressing, he came in for evaluation. Associated symptoms: Denies chills Review of Systems Const: Denies: chills, body aches or change in appetite Eyes: Denies: change in vision or eye discharge ENMT: Denies: throat pain or dental pain Card: Denies: chest pain or lightheadedness GI: Denies: diarrhea : Denies: dysuria Musc: Reports: extremity swelling (Left knee), joint pain (Left knee), joint swelling (Left knee), joint redness (Left knee), joint warmth (Left knee) and limited range of motion (Due to pain and swelling); Denies: neck pain or back pain Neuro: Denies: headache(s) or weakness in extremities Psych: Denies: depression Paulo/Lymph: Denies: easy bruising All/Imm: Denies: urticaria, tongue swelling or facial swelling PFSH ED PFSH: Medical History (Updated 07/21/22 @ 21:24 by Esha Riley MD) Accelerated hypertension 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 CAD (coronary artery disease) History of 2019 novel coronavirus disease (COVID-19) October 21, 2019 Osteoarthritis of left knee Surgical History (Updated 07/18/22 @ 10:54 by Moreno Wharton MD) Stented coronary artery Family History Mother Cancer Liver Other CAD (coronary artery disease) Hypertension Parkinson's disease Social History Smoking and tobacco status: former smoker Quit status (tobacco): has quit using tobacco Year quit tobacco: 2000 - casual smoker Second hand smoke exposure: Yes Smoking risk assessment/counseling performed?: No Alcohol intake: never Desire information about alcohol rehabilitation?: No Counseling given: No Substance/Drug Use: never Desire information about substance/drug rehabilitation?: No Counseling given: No Adopted: No Caregiver/support person: No Lives independently: Yes Household members: spouse Housing: House Marital status: Number of children: 6 service: No Current occupational status: retired Do you think of yourself as: Straight/Heterosexual Current gender identity: Male Physical Exam Const: COMMON NORMALS: no acute distress, patient oriented x3, no limitations and alert HENMT: COMMON NORMALS: normocephalic HEAD & SCALP: normocephalic Eye: COMMON NORMALS: EOMs intact bilaterally Neck/C-Spine: COMMON NORMALS: full ROM and supple Chest: COMMONS NORMALS: normal inspection of the chest Resp: COMMON NORMALS: normal respiratory effort, No retractions, No use of accessory muscles and clear to auscultation bilaterally AUSCULTATION: clear to auscultation bilaterally Cardio: COMMON NORMALS: regular rate, regular rhythm and No murmurs present (Cardio) RATE: regular rate RHYTHM: regular rhythm GI: COMMON NORMALS: Normal to inspection, nondistended, normoactive bowel sounds present and non-tender : COMMON NORMALS: Yes no CVA tenderness BLADDER/KIDNEY EXAM: Yes no CVA tenderness Back/Pelvis: COMMON NORMALS: no CVA tenderness and no thoracic nor lumbar tenderness Extremity: GENERAL: Yes normal exam except as noted EXTREMITY IMAGE (FRONT): 1. Surgical wound is healing well with no dehiscence or drainage. 2. 2 small wounds on the leg from which drainage occurred. 3. Swelling, redness and tenderness involving the anterior and medial aspect of the knee with proximal extension into the lower part of the thigh. There is also mild erythema involving the leg. Neuro: COMMON NORMALS: patient oriented x3 and no focal motor deficits SENSORIUM/ORIENTATION: Yes alert Psych: COMMON NORMALS: mental status grossly normal and cooperative Course Consultations: Consultation #1: Called Dr. Wharton, patient's surgeon but was unable to get him. So we spoke with Dr. Ren, orthopedic surgeon on-call. Discussed patient's history, clinical findings and test results. He recommends starting patient on Bactrim and having him follow-up with Dr. Wharton in the office. Time: 21:16 Vital Signs: Vital signs: Vital Signs Temperature 97.7 F 07/21/22 18:47 Pulse Rate 77 07/21/22 19:38 Respiratory Rate 16 07/21/22 19:38 Blood Pressure 142/72 07/21/22 19:38 Pulse Oximetry 92 07/21/22 19:38 Oxygen Delivery Me thod Room Air 07/21/22 18:47 MDM - Wound/Laceration Medical Decision Making Medical decision making: History as above. Patient is afebrile in the ER and white count is normal though CRP and ESR are elevated. Had intended to talk to Dr. Wharton but could not get him. So I discussed the case with Dr. Ren who notes that its not uncommon for ESR and CRP to be elevated postoperatively. He recommends starting patient on Bactrim and discharging him home. He will follow-up with Dr. Wharton in the office early next week. Reasons to return were discussed. Patient verbalized understanding and agrees with the plan. Lab Data 07/21/22 19:48 07/21/22 19:48 Radiology Impressions Knee X-Ray 07/21/22 19:21 IMPRESSION: Recently placed left total knee arthroplasty in expected alignment. Laboratory Results WBC 10.0 10^3/uL (4.0-10.0) 07/21/22 19:48 RBC 4.16 10^6/uL (4.1-5.3) 07/21/22 19:48 Hgb 13.4 g/dL (11.7-16.6) 07/21/22 19:48 Hct 39.8 % (42.0-52.0) L 07/21/22 19:48 MCV 95.7 fl (80-94) H 07/21/22 19:48 MCH 32.2 pg (28.0-34.0) 07/21/22 19:48 MCHC 33.7 g/dL (30.0-36.0) 07/21/22 19:48 RDW 11.6 % (12.1-15.1) L 07/21/22 19:48 Plt Count 350 10^3/cmm (130-400) 07/21/22 19:48 MPV 9.1 fL (7.4-10.4) 07/21/22 19:48 Neut % (Auto) 68.8 % 07/21/22 19:48 Lymph % (Auto) 15.8 % 07/21/22 19:48 [place] % (Auto) 14.0 % 07/21/22 19:48 Eos % (Auto) 0.8 % 07/21/22 19:48 Baso % (Auto) 0.2 % 07/21/22 19:48 Neut # (Auto) 6.88 10^3/uL (1.8-7.7) 07/21/22 19:48 Lymph # (Auto) 1.6 10^3/uL (0.8-4.8) 07/21/22 19:48 [place] # (Auto) 1.4 10^3/uL (0.2-0.9) H 07/21/22 19:48 Eos # (Auto) 0.1 10^3/uL (0.0-0.8) 07/21/22 19:48 Baso # (Auto) 0.0 10^3/uL (0.0-0.1) 07/21/22 19:48 Nucleated RBC % (auto) 0 % 07/21/22 19:48 Nucleated RBCs # 0.0 /100WBC 07/21/22 19:48 ESR 28 mm/hr (0-10) H 07/21/22 19:48 Sodium 135 mmol/L (136-145) L 07/21/22 19:48 Potassium 3.6 mmol/L (3.5-5.1) 07/21/22 19:48 Chloride 89 mmol/L (98-107) L 07/21/22 19:48 Carbon Dioxide 32 mmol/L (22-29) H 07/21/22 19:48 Anion Gap 17.6 (5-19) 07/21/22 19:48 BUN 27 mg/dL (8-23) H 07/21/22 19:48 Creatinine 1.3 mg/dL (0.7-1.2) H 07/21/22 19:48 GFR Calculation 55.9 mL/min (90-130) L 07/21/22 19:48 Glucose 138 mg/dL (65-115) H 07/21/22 19:48 Calculated Osmolality 287 mOsm/kg (285-295) 07/21/22 19:48 Calcium 9.5 mg/dL (8.5-10.5) 07/21/22 19:48 Total Bilirubin 0.5 mg/dL (0.15-1.2) 07/21/22 19:48 AST 16 U/L (0-40) 07/21/22 19:48 ALT 21 U/L (0-41) 07/21/22 19:48 Alkaline Phosphatase 47 U/L (40-130) 07/21/22 19:48 C-Reactive Protein 163.3 mg/L (0.0-4.9) H 07/21/22 19:48 Total Protein 7.4 g/dL (6.6-8.7) 07/21/22 19:48 Albumin 4.2 g/dL (3.5-5.2) 07/21/22 19:48 Globulin 3.2 g/dL (1.3-4.6) 07/21/22 19:48 Discharge Plan Discharge Patient Disposition: Home Clinical Impression: Post op infection Condition: Stable Prescriptions: New Bactrim DS 800-160 mg tablet 1 tab PO Q12H 7 Days Qty: 14 0RF No Action Qunol Ultra CoQ10 See Rx Instructions .ROUTE .COMPLEX Rx Instructions: take as directed chlorthalidone 25 mg tablet 25 mg PO DAILY Qty: 30 3RF Eliquis 5 mg tablet 5 mg PO BID 30 Days Qty: 60 0RF Rx Instructions: stop 5 days prior to surgery spironolactone 25 mg tablet 25 mg PO DAILY 30 Days Qty: 30 0RF isosorbide mononitrate 120 mg tablet extended release 24 hr 120 mg PO DAILY magnesium oxide 400 mg PO DAILY Patient Comments: with potassium by report from patient Rx Instructions: take daily omega-3 fatty acids [Fish Oil Concentrate] 1,000 mg capsule 2,000 mg PO DAILY Rx Instructions: stop 5 days prior to sx Sandeep-E 400 mg tablet 400 mg PO DAILY Rx Instructions: administer on an empty stomach One-A-Day Men's Multivitamin 400-20-300 mcg tablet 1 tab PO DAILY ezetimibe 10 mg tablet 10 mg PO DAILY 30 Days Qty: 30 5RF Rx Instructions: 340B lisinopril 40 mg tablet 20 mg PO DAILY PRN (Reason: high blood pressure) Patient Comments: 20-40 mg nitroglycerin 0.4 mg tablet, sublingual 0.4 mg SUBLINGUAL ONCE PRN (Reason: chest pain) Qty: 1 3RF Rx Instructions: as directed clonidine HCl 0.1 mg tablet 0.1 mg PO BID PRN (Reason: hypertensive emergency) 30 Days Qty: 30 5RF Rx Instructions: 340B diltiazem HCl 360 mg tablet extended release 24 hr 360 mg PO DAILY 30 Days Qty: 30 2RF Rx Instructions: 340B Combivent Respimat 20-100 mcg/actuation mist 1 puff INHALATION Q6H PRN (Reason: shortness of breath or wheezing) Qty: 4 3RF budesonide-formoterol [Symbicort] 80-4.5 mcg/actuation HFA aerosol inhaler 2 puff inhalation DAILY Qty: 10.2 6RF oxycodone 5 mg Tablet 5 mg PO Q4H PRN (Reason: Moderate Pain) 7 Days Qty: 40 0RF Discharge Orders: Discharge ED (Routine); Ordered 07/21/22 Ordered By: Esha Riley Referrals: Gregoria Schilling FNP-C [Primary Care Provider] - Discharge Diet: Usual diet Discharge Activity: Resume usual activity Patient Instructions: Opioid Safety, Pain Management Activity Restrictions/Additional Instructions: Take Bactrim as prescribed. Follow-up with Dr. Wharton in the office early next week. Return if you develop any new or worsening symptoms. Coding Level of Care Code ED Pull Over Machine Operator for Андрей Franco
[2022-07-21 19:38] VITALS: BP 142/72; PULSE 77; RESP 16; O2SAT 92
[2022-07-21 20:08] LABS: Erythrocyte Sedimentation Rate 28 mm/hr (0-10)
[2022-07-21 20:12] LABS: Basophils % 0.2 %; Eosinophils # 0.1 10^3/uL (0.0-0.8); Eosinophils % 0.8 %; Hematocrit 39.8 % (42.0-52.0); Hemoglobin 13.4 g/dL (11.7-16.6); Lymphocytes # 1.6 10^3/uL (0.8-4.8); Lymphocytes % 15.8 %; Mean Corpuscular HGB Conc 33.7 g/dL (30.0-36.0); Mean Corpuscular Hemoglobin 32.2 pg (28.0-34.0); Mean Corpuscular Volume 95.7 fl (80-94); Mean Platelet Volume 9.1 fL (7.4-10.4); Monocytes # 1.4 10^3/uL (0.2-0.9); Neutrophils # 6.88 10^3/uL (1.8-7.7); Neutrophils % 68.8 %; Nucleated Red Blood Cells % 0 %; Platelet Count 350 10^3/cmm (130-400); Red Blood Count 4.16 10^6/uL (4.1-5.3); Red Cell Distribution Width 11.6 % (12.1-15.1)
[2022-07-21 20:38] LABS: Alanine Aminotransferase 21 U/L (0-41); Albumin Level 4.2 g/dL (3.5-5.2); Alkaline Phosphatase 47 U/L (40-130); Anion Gap 17.6 (5-19); Aspartate Amino Transferase 16 U/L (0-40); Blood Urea Nitrogen 27 mg/dL (8-23); C Reactive Protein 163.3 mg/L (0.0-4.9); Calcium 9.5 mg/dL (8.5-10.5); Carbon Dioxide 32 mmol/L (22-29); Chloride 89 mmol/L (98-107); Globulin 3.2 g/dL (1.3-4.6); Glomerular Filtration Rate 55.9 mL/min (90-130); Glucose 138 mg/dL (65-115); Osmolality Calculated 287 mOsm/kg (285-295); Potassium 3.6 mmol/L (3.5-5.1); Sodium 135 mmol/L (136-145); Total Bilirubin 0.5 mg/dL (0.15-1.2); Total Protein 7.4 g/dL (6.6-8.7)
[2022-07-21 21:37] VITALS: BP 143/70; PULSE 80; RESP 16; O2SAT 96
[2022-07-21] MEDS: sulfamethoxazole-trimeth DS 160-800 mg Tablet 1 TAB PO (21:37)
== END 2022-07-21 21:43 | disposition home or self-care (01) ==
PROVIDERS: Emergency Medicine; Emergency Provider Family Medicine; PCP Nurse Practitioner Family
DX: T81.40XA Infection following a procedure, unspecified, initial encounter (principal); Z96.652 Presence of left artificial knee joint; I25.10 Atherosclerotic heart disease of native coronary artery without angina pectoris; Z87.891 Personal history of nicotine dependence; I10 Essential (primary) hypertension; Y83.8 Other surgical procedures as the cause of abnormal reaction of the patient, or of later complication, without mention of misadventure at the time of the procedure
CPT/HCPCS: 36415; 73560; 80053; 85025; 85651; 86140; 99284

== ENCOUNTER → 2022-07-25 09:49 | Outpatient (BNVA) | payer MEDICARE, MEDICAID, SELFPAY | PROVIDERS: PCP Nurse Practitioner Family; Visit Provider Nurse Practitioner Family | DX: Z96.652 Presence of left artificial knee joint (principal); M79.89 Other specified soft tissue disorders | CPT/HCPCS: 99213 ==

== ENCOUNTER 2022-07-26 14:12 | Outpatient (CLI) | payer MEDICARE, MEDICAID, SELFPAY ==
--- NOTE | 2022-07-26 14:45 | USCV_ITS ---
Valentin Lawton Age: 61 Gender: M : 1960 Exam Date: 07/26/2022 14:44 Ordering Phys: Abel Chandra APN Technologist: PATRICIA [place] [facility] [place]ication: LLE PAIN AND SWELLING S/P TKR HISTORY: Lower extremity swelling. Lower extremity pain. Status post knee surgery. PROCEDURES: Venous duplex imaging was performed in only the left lower extremity. The following venous structures were evaluated: common femoral vein, profunda vein, proximal portion of the greater saphenous vein, superficial femoral vein, and the popliteal vein. In addition, the posterior tibial and peroneal trunk were evaluated. Serial compression, augmentation maneuvers, and spectral Doppler flow evaluation were performed. FINDINGS: Examination was technically limited due to body habitus. Normal 2-D Doppler and augmentation and compressibility throughout the lower extremity venous structures. Additional imaging through the proximal calf veins also reveals no thrombus. Limited evaluation of the greater saphenous vein is patent with no thrombus. CONCLUSIONS No DVT left lower extremity. Dr. Elyse Grande DO (Electronically Signed) Final Date: 26 Jul 2022 16:03 S
== END 2022-07-26 14:13 | disposition home or self-care (01) ==
LOC: RAD 14:14
PROVIDERS: PCP Nurse Practitioner Family; Visit Provider Nurse Practitioner Family
DX: M79.89 Other specified soft tissue disorders (principal)
CPT/HCPCS: 93971

== ENCOUNTER → 2022-08-01 12:43 | Outpatient (BNVA) | payer MEDICARE, MEDICAID, SELFPAY | PROVIDERS: PCP Nurse Practitioner Family; Visit Provider Orthopaedic Surgery | DX: Z96.652 Presence of left artificial knee joint (principal) | CPT/HCPCS: 99024 ==

== ENCOUNTER → 2022-08-22 16:01 | Outpatient (BNVA) | payer MEDICARE, MEDICAID, SELFPAY | PROVIDERS: Visit Provider Nurse Practitioner Family | DX: Z96.652 Presence of left artificial knee joint (principal) | CPT/HCPCS: 73560; 73565; 99213 ==

== ENCOUNTER 2022-08-23 06:00 | Outpatient (RCR) | payer MEDICARE, MEDICAID, SELFPAY | END 2022-08-25 23:59 | disposition home or self-care (01) | LOC: APT 06:00 | PROVIDERS: Visit Provider Orthopaedic Surgery | DX: Z47.89 Encounter for other orthopedic aftercare (principal) | CPT/HCPCS: 97110; 97140; 97162 ==

== ENCOUNTER 2022-08-26 06:00 | Outpatient (RCR) | payer MEDICARE, MEDICAID, SELFPAY | END 2022-09-25 23:59 | disposition home or self-care (01) | LOC: APT 06:00 | PROVIDERS: Visit Provider Orthopaedic Surgery | DX: Z47.1 Aftercare following joint replacement surgery (principal); Z96.652 Presence of left artificial knee joint | CPT/HCPCS: 97110; 97140; 97530 ==

== ENCOUNTER 2022-09-26 06:00 | Outpatient (RCR) | payer MEDICARE, MEDICAID, SELFPAY | END 2022-10-26 23:59 | disposition home or self-care (01) | LOC: APT 06:00 | PROVIDERS: Visit Provider Orthopaedic Surgery | DX: Z47.1 Aftercare following joint replacement surgery (principal); Z96.652 Presence of left artificial knee joint | CPT/HCPCS: 97110; 97112; 97140; 97530 ==

== ENCOUNTER → 2022-10-23 09:10 | Outpatient (BNVA) | payer MEDICARE, MEDICAID, SELFPAY | PROVIDERS: PCP Nurse Practitioner Family; Visit Provider Nurse Practitioner Family | DX: E78.2 Mixed hyperlipidemia; Z12.5 Encounter for screening for malignant neoplasm of prostate | CPT/HCPCS: 80053; 80061; 84443; 85025; G0103 ==

== ENCOUNTER → 2022-11-24 10:25 | Outpatient (BNVA) | payer MEDICARE, MEDICAID, SELFPAY | PROVIDERS: PCP Nurse Practitioner Family; Visit Provider Physician Assistant | DX: Z96.652 Presence of left artificial knee joint (principal) | CPT/HCPCS: 73560; 73565; 99213 ==

== ENCOUNTER → 2022-12-04 10:50 | Outpatient (BNVA) | payer MEDICARE, MEDICAID, SELFPAY | PROVIDERS: PCP Nurse Practitioner Family; Visit Provider Internal Medicine Pulmonary Disease | DX: J44.9 Chronic obstructive pulmonary disease, unspecified (principal); J45.909 Unspecified asthma, uncomplicated; I48.91 Unspecified atrial fibrillation; G47.33 Obstructive sleep apnea (adult) (pediatric); Z01.811 Encounter for preprocedural respiratory examination; Z99.89 Dependence on other enabling machines and devices; Z87.891 Personal history of nicotine dependence; Z79.01 Long term (current) use of anticoagulants | CPT/HCPCS: 99214 ==

== ENCOUNTER → 2022-12-05 13:14 | Outpatient (BNVA) | payer MEDICARE, MEDICAID, SELFPAY | PROVIDERS: PCP Nurse Practitioner Family; Visit Provider Dermatology | DX: L57.0 Actinic keratosis (principal); L72.0 Epidermal cyst; L57.8 Other skin changes due to chronic exposure to nonionizing radiation; L81.4 Other melanin hyperpigmentation; D22.39 Melanocytic nevi of other parts of face; Z08 Encounter for follow-up examination after completed treatment for malignant neoplasm; Z85.828 Personal history of other malignant neoplasm of skin | CPT/HCPCS: 17000; 99213 ==

== ENCOUNTER → 2022-12-19 07:47 | Outpatient (BNVA) | payer MEDICARE, MEDICAID, SELFPAY | PROVIDERS: PCP Nurse Practitioner Family; Visit Provider Physician Assistant | DX: Z96.652 Presence of left artificial knee joint (principal); M17.11 Unilateral primary osteoarthritis, right knee | CPT/HCPCS: 73560; 73565; 99213 ==

== ENCOUNTER → 2023-01-24 08:41 | Outpatient (BNVA) | payer MEDICARE, MEDICAID, SELFPAY | PROVIDERS: PCP Nurse Practitioner Family; Visit Provider Specialist | DX: G43.711 Chronic migraine without aura, intractable, with status migrainosus (principal); R07.9 Chest pain, unspecified | CPT/HCPCS: 99214 ==

== ENCOUNTER 2023-01-25 13:07 | Outpatient (CLI) | payer OTHER, MEDICAID, SELFPAY ==
--- NOTE | 2023-01-25 13:43 | XR_ITS ---
WS: [id number] KUB, AP view, 01/25/2023 Clinical Data: N20.0 - Calculus of kidney Comparison: None. Findings: No abnormal intraabdominal masses or calcifications are seen. There is no dilatated small bowel or ev idence of obstruction. There are phleboliths in the true pelvis. There is air in the small bowel and the colon. No definite renal or ureteral calculi are identified. Impression: Moderate generalized ileus.
== END 2023-01-25 13:08 | disposition home or self-care (01) ==
LOC: RAD 13:15
PROVIDERS: PCP Nurse Practitioner Family; Visit Provider Nurse Practitioner Family
DX: N20.0 Calculus of kidney (principal); R31.9 Hematuria, unspecified; R30.0 Dysuria
CPT/HCPCS: 74018; 80053; 81000; 85025

== ENCOUNTER → 2023-01-30 09:12 | Outpatient (BNVA) | payer OTHER, MEDICAID, SELFPAY | PROVIDERS: PCP Nurse Practitioner Family; Visit Provider Urology | DX: R79.89 Other specified abnormal findings of blood chemistry (principal) | CPT/HCPCS: 80048 ==

== ENCOUNTER → 2023-05-23 07:55 | Outpatient (BNVA) | payer OTHER, MEDICAID, SELFPAY | PROVIDERS: PCP Nurse Practitioner Family; Visit Provider Internal Medicine Pulmonary Disease | DX: J45.909 Unspecified asthma, uncomplicated (principal); I48.91 Unspecified atrial fibrillation; G47.33 Obstructive sleep apnea (adult) (pediatric); Z01.811 Encounter for preprocedural respiratory examination; Z87.891 Personal history of nicotine dependence | CPT/HCPCS: 99214 ==

== ENCOUNTER → 2023-05-24 08:51 | Outpatient (BNVA) | payer OTHER, MEDICAID, SELFPAY | PROVIDERS: PCP Nurse Practitioner Family; Visit Provider Nurse Practitioner Family | DX: L57.0 Actinic keratosis (principal); L72.0 Epidermal cyst; Z85.828 Personal history of other malignant neoplasm of skin; L57.8 Other skin changes due to chronic exposure to nonionizing radiation; L81.4 Other melanin hyperpigmentation; D22.39 Melanocytic nevi of other parts of face | CPT/HCPCS: 17000; 99213 ==

== ENCOUNTER 2023-05-30 06:51 | Outpatient (CLI) | payer OTHER, SELFPAY ==
--- NOTE | 2023-05-30 07:15 | MR_ITS ---
WS: [id number] MRI BRAIN WITHOUT CONTRAST HISTORY: G40.909 - Epilepsy, unspecified, not intractable, without... COMPARISON: 02/05/2020 TECHNIQUE: Diffusion imaging, multiplanar T1, T2 and FLAIR imaging obtained. No evidence for acute infarct or hemorrhage. Ibanez-white matter differentiation is normal. Mild atrophy. Small vessel ischemic changes in the periventricular and subcortical white matter are v prakash similar to the study from 2019 with out obvious progression. No large territory infarct. No edema . Normal hippocampal formations. Ventricles and extra-axial spaces are normal. No inferior displacement of cerebellar tonsils. The sella turcica and pituitary gland are unremarkabl e. Dural venous sinuses and [place] demonstrate no abnormality on this unenhanced studies. Paranasal sinuses: Clear. Mastoid air cells: Normal. Calvarium and scalp: Intact. IMPRESSION: 1. No acute intracranial hemorrhage or edema. 2. Stable noncontrast MRI brain since 02/05/2020. 3. Mild atrophy and mild small vessel ischemic disease. No progression since the prior study.
== END 2023-05-30 06:52 | disposition home or self-care (01) ==
LOC: RAD 06:51
PROVIDERS: PCP Nurse Practitioner Family; Visit Provider Nurse Practitioner Family
DX: G40.909 Epilepsy, unspecified, not intractable, without status epilepticus (principal); R42 Dizziness and giddiness; R41.0 Disorientation, unspecified; G43.711 Chronic migraine without aura, intractable, with status migrainosus; G31.9 Degenerative disease of nervous system, unspecified; I67.89 Other cerebrovascular disease
CPT/HCPCS: 70551

== ENCOUNTER → 2023-11-22 11:04 | Outpatient (BNVA) | payer OTHER, SELFPAY | PROVIDERS: PCP Nurse Practitioner Family; Visit Provider Nurse Practitioner Family | DX: L72.0 Epidermal cyst (principal); L57.8 Other skin changes due to chronic exposure to nonionizing radiation; L81.4 Other melanin hyperpigmentation; D22.39 Melanocytic nevi of other parts of face; L57.0 Actinic keratosis; Z85.828 Personal history of other malignant neoplasm of skin | CPT/HCPCS: 17000; 99213 ==

== ENCOUNTER → 2024-05-22 10:34 | Outpatient (BNVA) | payer OTHER, SELFPAY | PROVIDERS: PCP Nurse Practitioner Family; Visit Provider Nurse Practitioner Family | DX: L81.4 Other melanin hyperpigmentation (principal); D22.39 Melanocytic nevi of other parts of face; L90.5 Scar conditions and fibrosis of skin; Z08 Encounter for follow-up examination after completed treatment for malignant neoplasm; Z85.828 Personal history of other malignant neoplasm of skin; D48.5 Neoplasm of uncertain behavior of skin; L91.8 Other hypertrophic disorders of the skin; L29.89 Other pruritus; L53.8 Other specified erythematous conditions; L57.0 Actinic keratosis | CPT/HCPCS: 11102; 11200; 17000; 99213 ==

== ENCOUNTER → 2024-12-16 10:23 | Outpatient (BNVA) | payer OTHER, SELFPAY | PROVIDERS: PCP Nurse Practitioner Family; Visit Provider Nurse Practitioner Family | DX: I48.91 Unspecified atrial fibrillation (principal); I10 Essential (primary) hypertension; R73.9 Hyperglycemia, unspecified | CPT/HCPCS: 80053; 80061; 83036; 84443; 85025 ==